=== PATIENT | male | born 1940 | race Two or more races ===

== ENCOUNTER 2017-09-03 09:19 | Day surgery (SDC) | payer MEDICARE, BC ==
[2017-09-01 15:19] VITALS: BMI 27.8
[~2017-09-03 09:19] MED LIST: LACTATED RINGERS 1,000 ML IV SCH; LIDOCAINE 1% 20 ML VIAL (10MG/ML) FOR IV START INTRADERMA PRN
[2017-09-03 09:59] VITALS: TEMP 98.3
[2017-09-03] MEDS ORDERED: PROPOFOL 10 MG/ML 20 ML VIAL IV ONE (10:14)
--- NOTE | 2017-09-03 10:32 | P.PCN ---
Date of Procedure: 09/03/17 Procedure(s) Performed: BRIEF HISTORY: Patient is a 77-year-old, pleasant, white male, scheduled for an upper endoscopy as a part of evaluation of abnormal CAT scan of abdomen that showed thickening of the stomach which was done as a part of follow-up of Mantle lymphoma diagnosed 3 years ago. He complains of occasional heartburn but denies any abdominal pain, nausea vomiting, weight loss. PROCEDURE PERFORMED: Esophagogastroduodenoscopy with biopsy. PREOPERATIVE DIAGNOSIS: Abnormal CT of the abdomen showing thickened gastric wall and occasional GERD. IV sedation per anesthesia. PROCEDURE: After informed consent was obtained, the patient was brought into the endoscopy unit. IV sedation was administered by Anesthesia under continuous monitoring. Initially the Olympus GIF-140 video endoscope was inserted into the mouth. Esophagus intubated without any difficulty. It was gradually advanced into the stomach and duodenum and carefully examined. The bulb and the second part of the duodenum appeared normal. The scope at this time was withdrawn to the stomach, adequately insufflated with air, and upon careful examination, mucosa of the antrum, had mild gastritis and also there was a slightly raised area in the antrum with normal-appearing overlying mucosa which was also biopsied. The body, cardia and the fundus appeared normal. The scope was then withdrawn into the esophagus. The GE junction was located at 40 cm from the incisors. The esophagus appeared normal. There were no erosions or ulcerations seen and the patient tolerated the procedure well. IMPRESSION: 1. Mild antral gastritis. 2. Slightly raised area with normal appearance of mucosal mucosa in the gastric antrum, status post biopsy 3. Rest of the stomach appeared normal. RECOMMENDATIONS: The findings of this examination were discussed with the patient as well as his family. He was advised to follow with the biopsy results. He will follow with Dr. Sandy as scheduled.
[2017-09-03 10:57] VITALS: BP 114/57; PULSE 74; RESP 16
== END 2017-09-03 11:18 | disposition home or self-care (01) ==
LOC: ORWHC2ENDO 09:19
PROVIDERS: ATTEND Internal Medicine Gastroenterology
DX: K29.50 Unspecified chronic gastritis without bleeding (principal); Z85.72 Personal history of non-Hodgkin lymphomas; G20 Parkinson's disease; Z79.82 Long term (current) use of aspirin
CPT/HCPCS: 88305; 88342; 43239; J2704

== ENCOUNTER 2018-04-03 06:10 | Day surgery (SDC) | payer MEDICARE, BC ==
[2018-03-31 16:10] VITALS: BMI 27.1
--- NOTE | 2018-04-03 05:58 | P.GSHP ---
History of Present Illness H&P Date: 04/03/18 CHIEF COMPLAINT: Lymphoma HISTORY OF PRESENT ILLNESS: The patient is a 77-year-old male diagnosed with lymphoma. He had a Mediport placement. He presents for Port-A-Cath removal upon completion of chemotherapy. PAST MEDICAL HISTORY: See list. PAST SURGICAL HISTORY: See list. CURRENT MEDICATIONS: See list. ALLERGIES: See list. SOCIAL HISTORY: No active tobacco or alcohol use. FAMILY HISTORY: Noncontributory. REVIEW OF ORGAN SYSTEMS: CONSTITUTIONAL: Denies any fever or chills. HEENT: Denies any trouble with vision, hearing or nosebleeds. No difficulty swallowing. PHYSICAL EXAMINATION: Vital signs: Stable GENERAL: Well developed female and in no acute distress. Pleasant. HEENT: No sclera icterus. Extraocular movements grossly intact. Moist buccal mucosa. Head is atraumatic, normocephalic. Hears conversational speech. No nasal drainage. NECK: Supple without lymphadenopathy. No JV distention. CHEST: Non-labored respirations and equal bilateral excursions. CARDIOVASCULAR: Regular rate and rhythm. Palpable 2+ radial pulses. ABDOMEN: Nontender. MUSCULOSKELETAL: No clubbing, cyanosis or edema. NEUROLOGIC: No focal or lateralizing signs. PSYCH: Appropriate affect. Alert and oriented to person, place and time. ASSESSMENT: 1. Lymphoma 2. Need for chemotherapeutic access. PLAN: 1. Agree with Port-A-Cath removal per patient's request. Past Medical History Past Medical History: Cancer, GERD/Reflux, Prostate Disorder Additional Past Medical History / Comment(s): Mantle Cell Lymphoma 10/2014, CHEMO X2 YEARS. Hx Skin Cancer. History of Any Multi-Drug Resistant Organisms: None Reported Past Surgical History: Orthopedic Surgery Additional Past Surgical History / Comment(s): Left elbow surgery, Removal basal cell cancer, MULT. LYMPH NODE BIOPSIES. COLONOSCOPY. Past Anesthesia/Blood Transfusion Reactions: No Reported Reaction Smoking Status: Former smoker - Past Family History Brother(s) Family Medical History: Cancer Father Family Medical History: Cancer Medications and Allergies Home Medications Medication Instructions Recorded Confirmed Type Aspirin 81 mg PO DAILY 09/30/14 03/31/18 History Multivitamins, Thera [Multivitamin] 1 each PO Q14D 09/30/14 03/31/18 History Cholecalciferol [Vitamin D3] 1,000 unit PO MOWESA 09/01/17 03/31/18 History [place]-3 Fatty Acids/Fish Oil [Fish 1 each PO MOTUTHFR 09/01/17 03/31/18 History Oil 1,000 mg Softgel] Saw [place] 900 mg PO DAILY 09/01/17 03/31/18 History Allergies Allergy/AdvReac Type Severity Reaction Status Date / Time No Known Allergies Allergy Verified 03/31/18 16:01
[~2018-04-03 06:10] MED LIST changes: +DEXAMETHASONE SOD PHOSPHATE 10 MG/ML 1 ML VIAL IV ONE; -LACTATED RINGERS 1,000 ML IV SCH; +MIDAZOLAM 2 MG/2 ML VIAL IV PRN; +MORPHINE SULFATE 4 MG/ML SYRINGE IV PRN; +ONDANSETRON 4 MG/2 ML VIAL IVP ONE; +SCOPOLAMINE 1.5MG/72HR PATCH TRANSDERM ONE; +ceFAZolin IN SWFI 2 GM/20 ML SYRINGE IVP ONE
[2018-04-03 06:50] VITALS: RESP 16; TEMP 98.5
[2018-04-03] MEDS: LACTATED RINGERS 1,000 ML IV SCH ×2 (07:03→07:21)
[2018-04-03] MEDS ORDERED: fentaNYL (PF) 50 MCG/ML 2 ML AMP ONE (07:23)
[2018-04-03] MEDS ORDERED: PROPOFOL 10 MG/ML 20 ML VIAL IV ONE (07:23)
[2018-04-03] MEDS ORDERED: MIDAZOLAM 2 MG/2 ML VIAL ONE (07:23)
[2018-04-03] MEDS ORDERED: BUPIVACAINE (PF) 0.25% 30 ML VIAL SQ ONE ×2 (07:34)
--- NOTE | 2018-04-03 07:50 | P.PCN ---
Date of Procedure: 04/03/18 Description of Procedure: SURGEON: ASHLEY STONER MD OCCUPATIONAL THERAPY TECHNICIAN: None. PREOPERATIVE DIAGNOSIS: 1. Lymphoma 2. Chemotherapeutic venous access. POSTOPERATIVE DIAGNOSIS: 1. Lymphoma 2. Chemotherapeutic venous access. OPERATION: Removal of left internal jugular vein Port-A-Cath. ANESTHESIA: MAC with 30 mL local. ESTIMATED BLOOD LOSS: 1 mL SPECIMENS REMOVED: Port-A-Cath COMPLICATIONS: None. INDICATIONS: The patient is [id number] male who completed chemotherapy. He now has elected for removal. Benefits and risks were described. Informed consent was obtained. DESCRIPTION OF PROCEDURE: Patient was brought to the operating room, laid in supine position. After IV sedation the chest wall on the left side was prepped and draped in standard sterile fashion. Prior to incision, a timeout protocol was confirmed with surgical team regarding the patient's name including procedures to be performed. As this was a clean case, no further antibiotics were required. Additionally, early ambulation was encouraged for DVT prophylaxis. Attention was brought to the area of the port site, whereby a total of 30 mL of local was infiltrated into the skin for a field block. A #15 blade was used to incise along the previous cicatrix. Electro- Bovie cautery was used to control for hemostasis. Adhesions were lysed around the Mediport. The port was extracted without sequelae. Pressure for 2 minutes was placed along the left internal jugular vein. Hemostasis was checked along the pocket of the Port-A-Cath site. The wound was closed in layers using 3-0 Vicryl for the deep subcutaneous tissues followed by 4-0 Monocryl in a running subcuticular fashion. Dermabond was applied to the skin. At the end of the procedure needle, sponge and instrument counts were verified correct by the assistant professor surgical technology. The patient had tolerated the procedure well and was taken to postanesthesia care in stable condition. FINDINGS: 1. Unremarkable Port-a-cath extraction. Plan - Discharge Summary New Discharge Prescriptions: No Action Aspirin 81 mg PO DAILY Multivitamins, Thera [Multivitamin] 1 each PO Q14D Saw [place] 900 mg PO DAILY Cholecalciferol [Vitamin D3] 1,000 unit PO MOWESA [place]-3 Fatty Acids/Fish Oil [Fish Oil 1,000 mg Softgel] 1 each PO MOTUTHFR Discharge Medication List Aspirin 81 mg PO DAILY 09/30/14 [History] Multivitamins, Thera [Multivitamin] 1 each PO Q14D 09/30/14 [History] Cholecalciferol [Vitamin D3] 1,000 unit PO MOWESA 09/01/17 [History] [place]-3 Fatty Acids/Fish Oil [Fish Oil 1,000 mg Softgel] 1 each PO MOTUTHFR 08/10 [History] Saw [place] 900 mg PO DAILY 09/01/17 [History]
[2018-04-03 08:11] VITALS: BP 153/81; PULSE 62
== END 2018-04-03 08:29 | disposition home or self-care (01) ==
LOC: OR 06:10
PROVIDERS: ATTEND Surgery Plastic and Reconstructive Surgery
DX: C85.90 Non-Hodgkin lymphoma, unspecified, unspecified site (principal); K21.9 Gastro-esophageal reflux disease without esophagitis; Z45.2 Encounter for adjustment and management of vascular access device; Z85.79 Personal history of other malignant neoplasms of lymphoid, hematopoietic and related tissues; Z85.828 Personal history of other malignant neoplasm of skin; Z92.21 Personal history of antineoplastic chemotherapy; R25.1 Tremor, unspecified; Z87.891 Personal history of nicotine dependence; Z79.82 Long term (current) use of aspirin
CPT/HCPCS: 36590; J2250; J1100; J2405; J3010; J2704; J0690

== ENCOUNTER → 2018-05-05 | Outpatient (CLI) | payer MEDICARE, BC ==
[2018-05-05 08:59] LABS: Partial Thromboplastin Time 22.8 sec (22.0-30.0)
[2018-05-05 09:18] LABS: T4, Free (Free Thyroxine) 0.9 ng/dL (0.78-2.19)
[2018-05-05 16:55] LABS: Protein, Total 6.3 g/dL (6.2-8.2)
[2018-05-05 17:58] LABS: Hemoglobin A1C 5.5 % (4.0-6.0)
[2018-05-07 07:51] LABS: Albumin 4.25 g/dL (3.80-4.90); Gamma Globulin 0.52 g/dL (0.70-1.50)
== END | disposition home or self-care (01) ==
LOC: LABWHC1 08:15
PROVIDERS: ATTEND Psychiatry & Neurology Neurology
DX: G62.9 Polyneuropathy, unspecified (principal)
CPT/HCPCS: 36415; 82607; 82747; 83036; 84165; 84439; 84443; 85610; 85652; 85730; 86038; 86618

== ENCOUNTER → 2018-05-13 | Outpatient (CLI) | payer MEDICARE, BC ==
--- NOTE | 2018-05-13 07:59 | MR ---
EXAMINATION TYPE: MR brain wo/w con DATE OF EXAM: 05/13/2018 COMPARISON: NONE HISTORY: Tremors unilateral right and left-sided discoordination per order. Parkinson's disease per p atient with history of lymphoma and bilateral numbness per patient. TECHNIQUE: Multiplanar, multisequence images of the brain and brainstem is performed without and with IV contras t, utilizing 9 mL intravenous Gadavist . FINDINGS: Diffusion weighted images demonstrate no evidence of a recent infarct or other diffusion ab normality. There is no worrisome extra-axial fluid collection. There is mild ventricular and sulcal prominence consistent with mild age-related cerebral atrophy. There are focal and confluent areas of T2 hyperintensity seen throughout the deep and periventricular white matter. Lesions are nonspecific in appearance and distribution but most likely on basis of product of chronic small vessel ischemic c hange in patient of this age. Midline structures demonstrate normal morphology. The craniocervical junction appears within normal limits. Post contrast images demonstrate no abnormal enhancement. Dominant distal right vertebral ar alta is noted. The dural venous sinuses appear patent. The visualized sinuses are clear and the globe s are intact. IMPRESSION: There is mild diffuse age-related cerebral atrophy and moderate to advanced chronic small vessel ischemic change present. No suspicious enhancement is noted.
== END | disposition home or self-care (01) ==
LOC: RADMRIMAIN 06:03
PROVIDERS: ATTEND Psychiatry & Neurology Neurology
DX: G31.1 Senile degeneration of brain, not elsewhere classified (principal); I67.82 Cerebral ischemia
CPT/HCPCS: 82565; 70553; A9581

== ENCOUNTER → 2022-09-16 | Outpatient (CLI) | payer MEDICARE, BC ==
--- NOTE | 2022-09-16 09:53 | MR ---
"EXAMINATION TYPE: MR lumbar spine wo con DATE OF EXAM: 09/16/2022 COMPARISON: HISTORY: Low back pain TECHNIQUE: Multiplanar, multisequence images of the lumbar spine were acquired without IV contrast. There is an oval focus of increased signal on T2-weighted sequences, likely low signal on T1 at the l evel of the thoracic cord anteriorly at T11 measuring approximately 8 to 9 mm in cephalad to caudal d imension L1-L2: Mild posterior disc bulge causes slight anterior mass effect on the thecal sac. No significant foraminal encroachment. L2-L3: Posterior broad-based disc bulge causes anterior mass effect on the thecal sac. There is some facet arthropathy with virtually the ligamentum flavum. No significant foraminal encroachment. L3-L4: Posterior broad-based disc bulge causes anterior mass effect on the thecal sac. Circumferentia l extension endplate disc complex contributes to cause some right-sided foraminal encroachment. L4-L5: Facet arthropathy with hypertrophy ligamentum flavum causes posterior lateral mass effect on t he thecal sac greater from the right. Circumferential extension endplate disc complex results in fora gonzález encroachment on the right. L5-S1: Facet arthropathy changes present. There is posterior broad-based disc bulge causing mild ante rior mass effect on the thecal sac. Circumferential extension of endplate disc complex encroaches on the foramen greater on the left than on the right Lumbar segments are intact. No paraspinal masses are identified. Conus medullaris has a normal appe arance. There is multilevel spondylosis with endplate discogenic marrow signal change. Large Schmorl' s node present at the inferior plate of L2. Loss of disc height signal is consistent with disc desicc ation and degenerative disc disease at intervertebral levels. There is a slight spinal curvature. No significant spinal stenosis. There is a tortuous ectatic descending aorta. IMPRESSION: Indeterminate focus of signal abnormality at the distal thoracic cord, consider dedicated thoracic cord imaging within without contrast, metastatic disease not excluded. Degenerative disc disease, facet arthropathy, multilevel foraminal encroachment. Spinal curvature. A Yellow level critical message alert has been initiated for Emerson Esquivel DO via the [employer] 0 | Critical Results System on 09/16/2022 9:51 AM. This message alert has been sent to Emerson Kovar , DO via the preferences provided by the clinician for the receipt of Radiology Critical Findings. [facility] [place] [id number]."
== END | disposition home or self-care (01) ==
LOC: RADMRIMAIN 08:48
PROVIDERS: ATTEND Psychiatry & Neurology Neurology
DX: M48.061 Spinal stenosis, lumbar region without neurogenic claudication (principal); M51.36 Other intervertebral disc degeneration, lumbar region; M47.816 Spondylosis without myelopathy or radiculopathy, lumbar region
CPT/HCPCS: 72148

== ENCOUNTER → 2022-09-23 | Outpatient (CLI) | payer MEDICARE, BC ==
--- NOTE | 2022-09-23 07:54 | MR ---
EXAMINATION TYPE: MR thoracic spine wo/w con DATE OF EXAM: 09/23/2022 COMPARISON: MRI lumbar spine September 16, 2022 HISTORY: NEOPLASM OF UNCERTAIN BEHAVIOR, LOWER SPINAL CORD FOUND ON LUMBAR MRI TECHNIQUE: Multiplanar, multisequence imaging of thoracic spine is performed without and with IV cont rast, patient injected with 9 cc of gadolinium 4 study. FINDINGS: Coronal images show dextroconvex scoliosis centered in the lower thoracic spine. Spinal co rd shows normal course and caliber as it courses the thoracic spine. . Redemonstration of oval circum scribed small lesion anterior mid to lower thoracic T11 vertebral level measuring 6 mm craniocaudal d imension by 4 mm AP diameter without postcontrast enhancement of T1 hypointensity and T2 hyperintensi ty. Remainder of spinal cord shows no suspicious lesions or enhancement. Vertebral body heights and a lignment are satisfactory on sagittal images. Disc space heights are maintained. No large posterior d isc herniations are seen on sagittal images. Bone marrow signal intensity is preserved. No abnormal e nhancement is noted. Review of the axial images shows no significant spinal canal stenosis or neural foraminal narrowing a t any thoracic level. Redemonstration of oval circumscribed lesion measuring 4 mm transversely axial image 13 series 701 without enhancement. Visualized thorax and upper abdomen show small-sized slidin g type hiatal hernia. IMPRESSION: There is 6 mm well-circumscribed nonenhancing oval thin-walled enteric cyst or cystic les ion anterior aspect of lower thoracic spinal cord favor benign in etiology.
== END | disposition home or self-care (01) ==
LOC: RADMRIMAIN 06:29
PROVIDERS: ATTEND Psychiatry & Neurology Neurology
DX: D48.0 Neoplasm of uncertain behavior of bone and articular cartilage (principal)
CPT/HCPCS: 72157; A9585

== ENCOUNTER 2023-10-01 10:45 | Day surgery (SDC) | payer MEDICARE, BC ==
[2023-09-30 09:01] VITALS: BMI 26.5
[~2023-10-01 10:45] MED LIST changes: -DEXAMETHASONE SOD PHOSPHATE 10 MG/ML 1 ML VIAL IV ONE; +HYDROmorphone 0.5 MG/0.5 ML SYRINGE IVP PRN; +LACTATED RINGERS 1,000 ML IV SCH; +LIDOCAINE 1% (10MG/ML) FOR IV START INTRADERMA PRN; -LIDOCAINE 1% 20 ML VIAL (10MG/ML) FOR IV START INTRADERMA PRN; -MIDAZOLAM 2 MG/2 ML VIAL IV PRN; -MORPHINE SULFATE 4 MG/ML SYRINGE IV PRN; -ONDANSETRON 4 MG/2 ML VIAL IVP ONE; -SCOPOLAMINE 1.5MG/72HR PATCH TRANSDERM ONE; -ceFAZolin IN SWFI 2 GM/20 ML SYRINGE IVP ONE
[2023-10-01] MEDS: FAMOTIDINE 20 MG/2 ML VIAL IV PRN ×2 (11:23→11:28)
[2023-10-01] MEDS ORDERED: DEXAMETHASONE SOD PHOSPHATE 4 MG/ML 1 ML VIAL IVP ONE ×2 (11:24→11:28)
[2023-10-01] MEDS ORDERED: ONDANSETRON 4 MG/2 ML VIAL IVP ONE ×2 (11:24→11:28)
[2023-10-01] MEDS ORDERED: ONDANSETRON 4 MG/2 ML VIAL ONE (11:27)
[2023-10-01 11:30] VITALS: RESP 16
[2023-10-01 11:43] LABS: Basophils % (A) 0 %; Eosinophils # (A) 0.1 k/uL (0-0.7); Eosinophils % (A) 1 %; HGB 13.4 gm/dL (13.0-17.5); Lymphocytes # (A) 1.1 k/uL (1.0-4.8); Lymphocytes % (A) 16 %; MCH 32.5 pg (25.0-35.0); MCHC 33.6 g/dL (31.0-37.0); MCV 96.7 fL (80.0-100.0); Mean Platelet Volume 8.5; Monocytes # (A) 0.4 k/uL (0-1.0); Monocytes % (A) 6 %; Neutrophils # (A) 5.2 k/uL (1.3-7.7); Neutrophils % (A) 75 %; Platelet Count 243 k/uL (150-450); RBC 4.13 m/uL (4.30-5.90); RDW 12.8 % (11.5-15.5)
[2023-10-01] MEDS ORDERED: ePHEDrine 50 MG/ML 1 ML VIAL ONE (11:45)
[2023-10-01] MEDS ORDERED: PROPOFOL 10 MG/ML 20 ML VIAL IV ONE (11:45)
[2023-10-01] MEDS ORDERED: SUCCINYLCHOLINE CHLORIDE 200 MG/10 ML VIAL IV ONE (11:45)
[2023-10-01] MEDS ORDERED: LIDOCAINE 1% INJ 10MG/ML (20 ML MDV) ONE (11:45)
[2023-10-01] MEDS ORDERED: fentaNYL (PF) 50 MCG/ML 2 ML AMP ONE (11:45)
[2023-10-01] MEDS ORDERED: LIDOCAINE 2%-EPI 1:100,000 20 ML VIAL SQ ONE ×2 (12:06)
[2023-10-01] MEDS ORDERED: BACITRACIN ZINC 500 UNIT/GM OINT 28.4 GM TUBE TOPICAL ONE (12:36)
--- NOTE | 2023-10-01 12:54 | P.OP ---
Date of Procedure: 10/01/23 Preoperative Diagnosis: Right ear lesion Right preauricular skin lesion Postoperative Diagnosis: Same Procedure(s) Performed: Excision right preauricular lesion 2.7 cm with complex closure Wedge excision right ear lesion 5.2 cm with complex closure Anesthesia: MANA Surgeon: Mikal Lucas Estimated Blood Loss (ml): 5 Pathology: other (Right preauricular skin lesion and right ear lesion) Condition: stable Disposition: PACU Indications for Procedure: 83-year-old white male who presents with 2 nonhealing progressively enlarging skin lesions right auricle and right preauricular Operative Findings: Excoriated raw appearing right preauricular and right superior helical skin lesions Description of Procedure: The patient was brought in the operative suite and placed in a supine position. Patient underwent induction of general anesthesia with oral endotracheal intubation without difficulty. The patient was prepped and draped in usual aseptic fashion. 1% lidocaine with [id number] epinephrine was infused subcutaneously at both surgical sites. This was allowed to work for 7 minutes vasoconstrictive effect. The right ear lesion was excised with wedge excision technique grossly entirely through and through and hemostasis was gained with electrocautery. This was closed in complex closure method with advancement of the remainder of the auricle into the defect including closure of the cartilage with 3-0 Vicryl suture subcutaneous tissue closed with inverted interrupted 5-0 Vicryl suture and skin closed with running locking and simple interrupted 4-0 Prolene suture. Bacitracin ointment sterile dressing was placed. The right preauricular skin lesion was then excised grossly entirely in the preauricular crease down to the subcutaneous muscular layer. Hemostasis was gained with electrocautery. The wound closure included wide undermining and advancement of tissue into the defect from the surrounding area and all directions. The wound was closed in the muscular and subcutaneous layers with inverted interrupted 4-0 Vicryl suture skin closed with running locking 5-0 Prolene suture followed by bacitracin ointment and sterile dressings. The patient was allowed to emerge from general anesthesia having tolerated procedure well extubated in the operative suite and transferred to postop recovery area in satisfactory.
[2023-10-01 13:12] VITALS: TEMP 97
[2023-10-01] MEDS ORDERED: hydrALAZINE HCL 20 MG/ML 1 ML VIAL IV ONE (13:39)
[2023-10-01 14:27] VITALS: BP 147/65; PULSE 85
== END 2023-10-01 14:43 | disposition home or self-care (01) ==
LOC: OR 10:45
PROVIDERS: ATTEND Otolaryngology
DX: L81.4 Other melanin hyperpigmentation (principal); H83.8X1 Other specified diseases of right inner ear; G20.B2 Parkinson's disease with dyskinesia, with fluctuations; K21.9 Gastro-esophageal reflux disease without esophagitis; Z79.899 Other long term (current) drug therapy; Z87.891 Personal history of nicotine dependence
CPT/HCPCS: 88305; 85025; 21012; J0330; J0360; J1100; J0690; J2405; J2001; J3010; J3490; J2704

== ENCOUNTER 2023-12-14 08:12 | Inpatient (IN) | payer MEDICARE, BC ==
--- NOTE | 2023-12-14 08:34 | ED ---
General Adult HPI - General Chief complaint: Weakness Stated complaint: Weakness, Freq Falls Time Seen by Provider: 12/14/23 08:19 Source: EMS, RN notes reviewed, old records reviewed Mode of arrival: EMS Limitations: no limitations - History of Present Illness Initial comments: 83 -year-old male presenting with weakness, gait instability, frequent falls. Patient has history of peripheral neuropathy and Parkinson's disease. Apparently he's had frequent falls and progressive weakness over many months. He had reported minor head injury without loss consciousness from a fall which was several days ago. He also injured his right arm and was noted to have significant ecchymosis to the right upper extremity. Denies central chest pain. Denies fever. Denies vomiting or diarrhea. - Related Data Home Medications Medication Instructions Recorded Confirmed Aspirin 81 mg PO DAILY 09/30/14 09/30/23 Carbidopa/Levodopa 3 tab PO TID 09/30/23 09/30/23 [Carbidopa-Levodopa 25-100 Tab] Cholecalciferol [Vitamin D3 (125 125 mcg PO Q48H 09/30/23 09/30/23 Mcg = 5000 Iu)] Cyanocobalamin (Vitamin B-12) 1,000 mcg PO DAILY 09/30/23 09/30/23 [Vitamin B-12] Tamsulosin [Flomax] 0.4 mg PO HS 09/30/23 09/30/23 traMADol HCL 50 mg PO BID 09/30/23 09/30/23 Allergies Allergy/AdvReac Type Severity Reaction Status Date / Time No Known Allergies Allergy Verified 12/14/23 08:23 Review of Systems ROS Statement: Those systems with pertinent positive or pertinent negative responses have been documented in the HPI. ROS Other: All systems not noted in ROS Statement are negative. Past Medical History Past Medical History: Cancer, GERD/Reflux, Neurologic Disorder, Prostate Disorder Additional Past Medical History / Comment(s): See Dr Lucas's H&P. 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 Hx Skin Cancer. Numbness in fe et. Back problem/pain. Parkinson's. History of Any Multi-Drug Resistant Organisms: None Reported Past Surgical History: Orthopedic Surgery Additional Past Surgical History / Comment(s): Left elbow surgery, removal basal cell cancer, MULTIPLE LYMPH NODE BIOPSIES, COLONOSCOPY, chemo port Past Anesthesia/Blood Transfusion Reactions: No Reported Reaction Past Psychological History: No Psychological Hx Reported Smoking Status: Former smoker Past Alcohol Use History: Rare Past Drug Use History: None Reported - Past Family History Brother(s) Family Medical History: Cancer Father Family Medical History: Cancer General Exam Limitations: no limitations General appearance: alert, in no apparent distress Head exam: Present: atraumatic, normocephalic Eye exam: Present: normal appearance, PERRL ENT exam: Present: mucous membranes dry Neck exam: Present: normal inspection. Absent: tenderness, meningismus Respiratory exam: Present: normal lung sounds bilaterally. Absent: respiratory distress, wheezes Cardiovascular Exam: Present: regular rate, normal rhythm GI/Abdominal exam: Present: soft. Absent: distended Extremities exam: Present: other (Ecchymosis to the right upper extremity, no bony tenderness, normal range of motion) Neurological exam: Present: alert Psychiatric exam: Present: normal affect, normal mood Skin exam: Present: warm, dry Course Vital Signs 12/14/23 08:15 Temperature 97.8 F Pulse Rate 65 Respiratory 16 Rate Blood Pressure 188/90 O2 Sat by Pulse 97 Oximetry Medical Decision Making - Medical Decision Making Was pt. sent in by a medical professional or institution (Dr. PA, [employer] TEAM TRUCK DRIVER, urgent care, hospital, or jail...) When possible be specific @ -No Did you speak to anyone other than the patient for history (EMS, parent, family, police, friend...)? What history was obtained from this source @ -No Did you review nursing and triage notes (agree or disagree)? Why? @ -I reviewed and agree with nursing and triage notes Were old charts reviewed (outside hosp., previous admission, EMS record, old EKG, old radiological studies, urgent care reports/EKG's, jail records)? Report findings @ -No old charts were reviewed Differential Diagnosis (chest pain, altered mental status, abdominal pain women, abdominal pain men, vaginal bleeding, weakness, fever, dyspnea, syncope, headache, dizziness, GI bleed, back pain, seizure, CVA, palpatations, mental health, musculoskeletal)? @ Differential Weakness: Hypoglycemia, shock, sepsis, hyponatremia, anemia, infection, NC, ETOH, adverse medicine reaction, overdose, stroke, this is not meant to be an all-inclusive list. EKG interpreted by me (3pts min.). @ EKG: Sinus rhythm rate of 67, PA interval 169, QRS duration 83, QTC 389 X-rays interpreted by me (1pt min.). @ -Chest x-ray negative for consolidated pneumonia, no pneumothorax, no acute findings CT interpreted by me (1pt min.). @ CT brain and C-spine negative for traumatic injury. U/S interpreted by me (1pt. min.). @ -None done What testing was considered but not performed or refused? (CT, X-rays, U/S, labs)? Why? @ -None What meds were considered but not given or refused? Why? @ -None Did you discuss the management of the patient with other professionals (professionals i.e. DrPapo, PA, [employer] TEAM TRUCK DRIVER, lab, RT, psych nurse, social psychologist, professor of environmental engineering, teacher, guest relations officer, case repairer)? Give summary @ -No Was smoking cessation discussed for >3mins.? @ -No Was critical care preformed (if so, how long)? @ -No Were there social determinants of health that impacted care today? How? (Homelessness, low income, unemployed, alcoholism, drug addiction, transportation, low edu. Level, literacy, decrease access to med. care, custodial, rehab)? @ -No Was there de-escalation of care discussed even if they declined (Discuss DNR or withdrawal of care, Hospice)? DNR status @ -No What co-morbidities impacted this encounter? (DM, HTN, Smoking, COPD, CAD, Cancer, CVA, ARF, Chemo, Hep., AIDS, mental health diagnosis, sleep apnea, morbid obesity)? @ -Peripheral neuropathy, Parkinson's disease Was patient admitted / discharged? Hospital course, mention meds given and route, prescriptions, significant lab abnormalities, going to OR and other pertinent info. @ -[83-year-old male with frequent falls, generalized weakness, gait instability. Workup in the emergency department thus far is unremarkable including chest x-ray, head CT, laboratory testing and EKG. Patient is a significant fall risk. Will likely require placement for rehabilitation. Case discussed with Dr. Santillan will admit Undiagnosed new problem with uncertain prognosis? @ -No Drug Therapy requiring intensive monitoring for toxicity (Heparin, Nitro, Insulin, Cardizem)? @ -No Were any procedures done? @ -No Diagnosis/symptom? @ -Gait instability, frequent falls Acute, or Chronic, or Acute on Chronic? @ acute on chronic Uncomplicated (without systemic symptoms) or Complicated (systemic symptoms)? @ -default Side effects of treatment? @ -No Exacerbation, Progression, or Severe Exacerbation? @ -No Poses a threat to life or bodily function? How? (Chest pain, USA, NC, pneumonia, PE, COPD, DKA, ARF, appy, cholecystitis, CVA, Diverticulitis, Homicidal, Suicidal, threat to staff... and all critical care pts) @ -No - Lab Data Result diagrams: 12/14/23 08:35 12/14/23 08:35 Lab Results 12/14/23 12/14/23 12/14/23 Range/Units 08:35 08:35 08:35 WBC 6.5 (3.8-10.6) k/uL RBC 3.72 L (4.30-5.90) m/uL Hgb 12.0 L (13.0-17.5) gm/dL Hct 36.5 L (39.0-53.0) % MCV 98.3 (80.0-100.0) fL MCH 32.3 (25.0-35.0) pg MCHC 32.9 (31.0-37.0) g/dL RDW 12.5 (11.5-15.5) % Plt Count 202 (150-450) k/uL MPV 9.0 Neutrophils % 78 % Lymphocytes % 14 % Monocytes % 5 % Eosinophils % 1 % Basophils % 0 % Neutrophils # 5.1 (1.3-7.7) k/uL Lymphocytes # 0.9 L (1.0-4.8) k/uL Monocytes # 0.3 (0-1.0) k/uL Eosinophils # 0.1 (0-0.7) k/uL Basophils # 0.0 (0-0.2) k/uL PT 10.8 (10.0-12.5) sec INR 1.0 (<1.2) APTT 23.0 (22.0-30.0) sec Sodium 138 (137-145) mmol/L Potassium 4.8 (3.5-5.1) mmol/L Chloride 104 (98-107) mmol/L Carbon Dioxide 33 H (22-30) mmol/L Anion Gap 1 mmol/L BUN 20 (9-20) mg/dL Creatinine 0.81 (0.66-1.25) mg/dL Est GFR (CKD-EPI)AfAm >90 (>60 ml/min/1.73 sqM) Est GFR (CKD-EPI)NonAf 82 (>60 ml/min/1.73 sqM) Glucose 98 (74-99) mg/dL Plasma Lactic Acid Adan (0.7-2.0) mmol/L Calcium 8.8 (8.4-10.2) mg/dL Magnesium 2.0 (1.6-2.3) mg/dL Total Bilirubin 1.0 (0.2-1.3) mg/dL AST 21 (17-59) U/L ALT <6 (4-49) U/L Alkaline Phosphatase 86 (38-126) U/L Troponin I (0.000-0.034) ng/mL NT-Pro-B Natriuret Pep 923 pg/mL Total Protein 5.6 L (6.3-8.2) g/dL Albumin 3.3 L (3.5-5.0) g/dL 12/14/23 12/14/23 Range/Units 08:35 08:35 WBC (3.8-10.6) k/uL RBC (4.30-5.90) m/uL Hgb (13.0-17.5) gm/dL Hct (39.0-53.0) % MCV (80.0-100.0) fL MCH (25.0-35.0) pg MCHC (31.0-37.0) g/dL RDW (11.5-15.5) % Plt Count (150-450) k/uL MPV Neutrophils % % Lymphocytes % % Monocytes % % Eosinophils % % Basophils % % Neutrophils # (1.3-7.7) k/uL Lymphocytes # (1.0-4.8) k/uL Monocytes # (0-1.0) k/uL Eosinophils # (0-0.7) k/uL Basophils # (0-0.2) k/uL PT (10.0-12.5) sec INR (<1.2) APTT (22.0-30.0) sec Sodium (137-145) mmol/L Potassium (3.5-5.1) mmol/L Chloride (98-107) mmol/L Carbon Dioxide (22-30) mmol/L Anion Gap mmol/L BUN (9-20) mg/dL Creatinine (0.66-1.25) mg/dL Est GFR (CKD-EPI)AfAm (>60 ml/min/1.73 sqM) Est GFR (CKD-EPI)NonAf (>60 ml/min/1.73 sqM) Glucose (74-99) mg/dL Plasma Lactic Acid Adan 0.8 (0.7-2.0) mmol/L Calcium (8.4-10.2) mg/dL Magnesium (1.6-2.3) mg/dL Total Bilirubin (0.2-1.3) mg/dL AST (17-59) U/L ALT (4-49) U/L Alkaline Phosphatase (38-126) U/L Troponin I <0.012 (0.000-0.034) ng/mL NT-Pro-B Natriuret Pep pg/mL Total Protein (6.3-8.2) g/dL Albumin (3.5-5.0) g/dL Disposition Clinical Impression: Frequent falls, Gait instability Disposition: ADMITTED IP TO THIS HOSP Condition: Stable Is patient prescribed a controlled substance at d/c from ED?: No Referrals: Mc Stewart DO [Primary Care Provider] - 1-2 days Time of Disposition: 12:01
[2023-12-14 08:51] LABS: Basophils % (A) 0 %; Eosinophils # (A) 0.1 k/uL (0-0.7); Eosinophils % (A) 1 %; HCT 36.5 % (39.0-53.0); Lymphocytes # (A) 0.9 k/uL (1.0-4.8); Lymphocytes % (A) 14 %; MCH 32.3 pg (25.0-35.0); MCHC 32.9 g/dL (31.0-37.0); MCV 98.3 fL (80.0-100.0); Monocytes # (A) 0.3 k/uL (0-1.0); Monocytes % (A) 5 %; Neutrophils # (A) 5.1 k/uL (1.3-7.7); Neutrophils % (A) 78 %; Platelet Count 202 k/uL (150-450); RBC 3.72 m/uL (4.30-5.90); RDW 12.5 % (11.5-15.5); WBC 6.5 k/uL (3.8-10.6)
[2023-12-14 08:59] LABS: Prothrombin Time 10.8 sec (10.0-12.5)
[2023-12-14 09:02] LABS: ALT <6 U/L (4-49); AST 21 U/L (17-59); African American GFR (CKD) >90 (>60 ml/min/1.73 sqM); Albumin 3.3 g/dL (3.5-5.0); Alkaline Phosphatase 86 U/L (38-126); Anion Gap 1 mmol/L; Blood Urea Nitrogen 20 mg/dL (9-20); Calcium 8.8 mg/dL (8.4-10.2); Carbon Dioxide 33 mmol/L (22-30); Chloride 104 mmol/L (98-107); Glucose 98 mg/dL (74-99); Non-African American GFR(CKD) 82 (>60 ml/min/1.73 sqM); Potassium 4.8 mmol/L (3.5-5.1); Sodium 138 mmol/L (137-145); Total Protein 5.6 g/dL (6.3-8.2)
[2023-12-14 09:10] LABS: NT-Pro-B-Type Natriuretic Pept 923 pg/mL
--- NOTE | 2023-12-14 09:18 | XR ---
EXAMINATION TYPE: XR chest 2V DATE OF EXAM: 12/14/2023 COMPARISON: 10/28/2014 HISTORY: Weakness TECHNIQUE: Frontal and lateral views of the chest are obtained. FINDINGS: On the lateral view of the chest only, there is opacification in the anterior upper portion of the th orax. Opacity in this region could be accounted by opacity from the overlying upper extremities parti cularly given the lack of opacification in the upper lobes on the PA view the chest. However the poss ibility of upper lobe infiltrates is not excluded. Repeat lateral view of the chest recommended with the upper extremities extended. The heart and pulmonary vasculature are normal. There is no pleural effusion or pneumothorax. The oss eous structures are intact. IMPRESSION: Repeat of lateral view the chest is recommended with the upper extremities extended. Based on this te chnique, upper lobe opacification cannot be excluded.
--- NOTE | 2023-12-14 09:32 | CT ---
EXAMINATION TYPE: CT brain cspine wo con DATE OF EXAM: 12/14/2023 COMPARISON: None HISTORY: Weakness, frequent falls CT DLP: 1418.1 mGycm Automated exposure control for dose reduction was used. TECHNIQUE: CT scan of the head and cervical spine are performed without contrast. Findings: Head CT: The ventricles, basal cisterns and sulci over the convexities are moderately enlarged consistent with moderate atrophy but appropriate for the patient's age. There is no mass, mass effect or shift of mi dline structures. There is moderate decreased density in the periventricular white matter consistent with chronic ische deloris white matter demyelination. There is no acute intra or extra-axial hemorrhage. Posterior fossa including the brainstem, fourth ventricle and cerebellar pontine angles are grossly n ormal. The intraorbital contents appear normal and symmetric. Visualized paranasal sinuses are well aerated. CT cervical spine: Craniovertebral junction relationships and prevertebral soft tissues are normal. The cervical vertebral segments are normal in height and alignment and there is no fracture subluxati on. There is mild degenerative disease at the C4-5, C5-6 and C6-7 levels. There is mild osteoarthritic ch anges of facet joints and uncovertebral joints throughout the cervical region. There is no bony encro achment of the cervical canal. There is mild bony encroachment at this the 4 5 neural foramina on the right. The paraspinal soft tissues unremarkable. IMPRESSION: 1. Head CT: No acute bleed or mass effect. 2. CT cervical spine: No acute trauma. Degenerative disc disease and osteoarthritic changes as descri bed above.
[2023-12-14] MEDS ORDERED: ACETAMINOPHEN TAB 325 MG TAB PO PRN (11:56)
[2023-12-14] MEDS ORDERED: NALOXONE 0.4 MG/ML 1 ML VIAL IV PRN (11:56)
[2023-12-14] MEDS: traMADol 50 MG TAB PO SCH ×2 (13:00→21:09)
[2023-12-14 14:28] LABS: Appearance,Urine Clear (Clear); Bilirubin,Urine Negative (Negative); Blood,Urine Negative (Negative); Color,Urine Yellow; Glucose,Urine (UA) Negative (Negative); Ketones,Urine Trace (Negative); Leukocyte Esterase,Urine Negative (Negative); Nitrite,Urine Negative (Negative); PH, Urine 6.5 (5.0-8.0); Protein,Urine Negative (Negative); Specific Gravity,Urine 1.018 (1.001-1.035); Urobilinogen,Urine <2.0 mg/dL (<2.0)
[2023-12-14] MEDS ORDERED: CARBIDOPA-LEVODOPA 25-100 MG 1 EACH TAB PO SCH ×2 (16:00)
[2023-12-14] MEDS ORDERED: ALPRAZolam 0.25 MG TAB PO PRN (19:14)
[2023-12-14] MEDS ORDERED: CALCIUM CARBONATE 500 MG CHEWABLE PO PRN (19:14)
[2023-12-14] MEDS ORDERED: ONDANSETRON 4 MG/2 ML VIAL IVP PRN (19:14)
[2023-12-14] MEDS ORDERED: LACTULOSE 20 GM/30 ML CUP PO PRN (19:14)
[2023-12-14] MEDS ORDERED: MELATONIN 3 MG TABLET PO PRN (19:14)
--- NOTE | 2023-12-14 19:25 | P.HPIM ---
History of Present Illness H&P Date: 12/14/23 Chief Complaint: Increasing falls This is a pleasant 83-year-old patient follows with Dr. Stewart. 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 Has back problems. Parkinson's. For which she follows Dr. Esquivel. And a baseline patient uses a walker. He last saw Dr. Esquivel in September. It has been noticed by the family and the patient that while patient's walking is suddenly become very weak and go down. Does not use caution us. Occasionally when patient gets epigastric dizzy lightheaded. Otherwise patient is rather tries to be active. No fever no chills. No chest pain or palpitations. Patient follows up in becoming increasingly frequent in the last few weeks. Patient is accompanied by his and son at the bedside. Review of systems: GEN.: None EYES: None HEENT: None NECK: None RESPIRATORY: None CARDIOVASCULAR: None GASTROINTESTINAL: None GENITOURINARY: Some urinary incontinence MUSCULOSKELETAL: Arthritis LYMPHATICS: None HEMATOLOGICAL: None PSYCHIATRY: None NEUROLOGICAL: [As above Social history: Patient smoked for 21 years stopped at age of 41. Less than a pack a day. Retired at age of 47. . Used to work in a chemistry lab. Physical examination: VITAL SIGNS: 98.3, 77, 18, 1 87 x 89, 97% room air GENERAL: Average built, reclining in bed, comfortable. Some bruising from falls EYES: Pupils equal. Conjunctiva normal. HEENT: External appearance of nose and ears normal, oral cavity grossly normal. NECK: JVD not raised; masses not palpable. HEART: First and second heart sounds are normal; no edema. LUNGS: Respiratory rate normal; clear to auscultation. ABDOMEN: Soft, nontender, liver spleen not palpable, no masses palpable. PSYCH: Alert and oriented x3; mood and affect normal. MUSCULOSKELETAL:No Clubbing/cyanosis;muscles-grossly intact. OA NEUROLOGICAL: [Cranial nerves grossly intact; no facial asymmetry, some bradykinesia LYMPHATICS: No lymph nodes palpable in the axilla and neck INVESTIGATIONS, reviewed in the clinical context: White count 6.5 lobe in 12 platelets 2025 potassium 4.8 creatinine 0.81 UA: Unremarkable EKG tracing personally reviewed by me-no sinus rhythm Chest x-ray film personally reviewed by me-unremarkable CT of the head and cervical spine: DJD changes. No fracture Assessment and plan: -Patient has been increasing frequent falls. Patient has underlying Parkinson's and peripheral neuropathy from chemotherapy. Falls, on rather suddenly when patient is feeling weak does not pass out. No chest pain or palpitation. This could be combination of autonomic dysfunction and some autonomic effect of Parkinson's. Patient currently takes 3 tablets 3 times a day of Sinemet.A DrPapo 2 tablets 4 times a day. 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 Check orthostatic. We'll see how the patient does. PTOT consult. Past Medical History Past Medical History: Cancer, GERD/Reflux, Neurologic Disorder, Prostate Disorder Additional Past Medical History / Comment(s): See Dr Lucas's H&P. 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 Hx Skin Cancer. Numbness in feet. Back problem/pain. Parkinson's. History of Any Multi-Drug Resistant Organisms: None Reported Past Surgical History: Orthopedic Surgery Additional Past Surgical History / Comment(s): Left elbow surgery, removal basal cell cancer, MULTIPLE LYMPH NODE BIOPSIES, COLONOSCOPY, chemo port Past Anesthesia/Blood Transfusion Reactions: No Reported Reaction Past Psychological History: No Psychological Hx Reported Smoking Status: Former smoker Past Alcohol Use History: Rare Additional Past Alcohol Use History / Comment(s): SMOKED FROM AGE [age], 1 PPD OR LESS. Past Drug Use History: None Reported - Past Family History Brother(s) Family Medical History: Cancer Father Family Medical History: Cancer Medications and Allergies Home Medications Medication Instructions Recorded Confirmed Type Aspirin 81 mg PO PC-SUPPER 09/30/14 12/14/23 History Carbidopa/Levodopa 3 tab PO TID 09/30/23 12/14/23 History [Carbidopa-Levodopa 25-100 Tab] Tamsulosin [Flomax] 0.4 mg PO PC-SUPPER 09/30/23 12/14/23 History traMADol HCL 50 mg PO BID 09/30/23 12/14/23 History Allergies Allergy/AdvReac Type Severity Reaction Status Date / Time No Known Allergies Allergy Verified 12/14/23 12:02 Physical Exam Vitals: Vital Signs Temp Pulse Pulse Resp BP BP Pulse Ox 12/14/23 17:29 98.3 F 77 18 187/89 97 12/14/23 16:49 97.8 F 81 18 186/82 96 12/14/23 13:05 65 18 128/65 95 12/14/23 08:15 97.8 F 65 16 188/90 97 Intake and Output 12/14/23 12/14/23 12/14/23 06:59 14:59 22:59 Intake Total 160 Balance 160 Intake: Oral 160 Other: # Voids 1 Weight 81.647 kg Results CBC & Chem 7: 12/14/23 08:35 12/14/23 08:35 Labs: Abnormal Lab Results - Last 24 Hours (Table) 12/14/23 12/14/23 12/14/23 Range/Units 08:35 08:35 08:35 RBC 3.72 L (4.30-5.90) m/uL Hgb 12.0 L (13.0-17.5) gm/dL Hct 36.5 L (39.0-53.0) % Lymphocytes # 0.9 L (1.0-4.8) k/uL Carbon Dioxide 33 H (22-30) mmol/L Total Protein 5.6 L (6.3-8.2) g/dL Albumin 3.3 L (3.5-5.0) g/dL Urine Ketones Trace H (Negative) Thrombosis Risk Factor Assmnt - Choose All That Apply Each Risk Factor Represents 3 Points: Age 75 years or older Thrombosis Risk Factor Assessment Total Risk Factor Score: 3 Thrombosis Risk Factor Assessment Level: Moderate Risk
[2023-12-14] MEDS: ENOXAPARIN 40 MG/0.4 ML SYRINGE SQ SCH (19:47)
[2023-12-14] MEDS: CARBIDOPA-LEVODOPA 25-100 MG 1 EACH TAB PO SCH (21:09)
[2023-12-14] MEDS: ASPIRIN 81 MG PO SCH (21:09)
[2023-12-15] MEDS: ENOXAPARIN 40 MG/0.4 ML SYRINGE SQ SCH (07:37)
[2023-12-15] MEDS: CARBIDOPA-LEVODOPA 25-100 MG 1 EACH TAB PO SCH ×4 (07:38→22:40)
[2023-12-15] MEDS: traMADol 50 MG TAB PO SCH ×2 (07:38→20:01)
[2023-12-15] MEDS: FLUDROCORTISONE 0.1 MG TAB PO SCH ×2 (12:16→20:01)
[2023-12-15 13:53] VITALS: BMI 24.4
--- NOTE | 2023-12-15 16:48 | P.PN ---
Progress Note - Text Progress Note Date: 12/15/23 Chief Complaint: Increasing falls This is a pleasant 83-year-old patient follows with Dr. Stewart. 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 Has back problems. Parkinson's. For which she follows Dr. Esquivel. And a baseline patient uses a walker. He last saw Dr. Esquivel in September. It has been noticed by the family and the patient that while patient's walking is suddenly become very weak and go down. Does not use caution us. Occasionally when patient gets epigastric dizzy lightheaded. Otherwise patient is rather tries to be active. No fever no chills. No chest pain or palpitations. Patient follows up in becoming increasingly frequent in the last few weeks. Patient is accompanied by his and son at the bedside. December 15, 2023: Sitting up in bed. Comfortable. and son at the bedside. As discussed yesterday patient Sinemet is being changed to 2 tablets 4 times a day. Patient's blood pressure extremely labile. Dropped down to 170 systolic on standing. Also systolic was up to 1 80-200, at times. MAURIZIO stockings are been ordered. Florinef 0.05 mg twice daily as needed. Discussed at length with the family. See how the patient does with PT OT. Unable to possibly because of drop in blood pressure. Active Medications Acetaminophen (Acetaminophen Tab 325 Mg Tab) 650 mg PO Q6HR PRN PRN Reason: Mild Pain or Fever > 100.5 Alprazolam (Alprazolam 0.25 Mg Tab) 0.25 mg PO Q6HR PRN PRN Reason: Anxiety Aspirin (Aspirin 81 Mg) 81 mg PO PC-SUPPER [facility] Last Admin: 12/14/23 21:09 Dose: 81 mg Calcium Carbonate/Glycine (Calcium Carbonate 500 Mg Chewable) 1,000 mg PO Q4HR PRN PRN Reason: Dyspepsia Carbidopa/Levodopa (Carbidopa-Levodopa 25-100 Mg 1 Each Tab) 2 each PO QID [facility] Last Admin: 12/15/23 12:18 Dose: 2 each Enoxaparin Sodium (Enoxaparin 40 Mg/0.4 Ml Syringe) 40 mg SQ DAILY [facility] Last Admin: 12/15/23 07:37 Dose: 40 mg Fludrocortisone Acetate (Fludrocortisone 0.1 Mg Tab) 0.05 mg PO BID [facility] Last Admin: 12/15/23 12:16 Dose: 0.05 mg Lactulose (Lactulose 20 Gm/30 Ml Cup) 20 gm PO DAILY PRN PRN Reason: Constipation Melatonin (Melatonin 3 Mg Tablet) 3 mg PO HS PRN PRN Reason: Insomnia Naloxone HCl (Naloxone 0.4 Mg/Ml 1 Ml Vial) 0.2 mg IV Q2M PRN PRN Reason: Opioid Reversal Ondansetron HCl (Ondansetron 4 Mg/2 Ml Vial) 4 mg IVP Q8HR PRN PRN Reason: Nausea And Vomiting Tamsulosin HCl (Tamsulosin 0.4 Mg Cap.Er.24h) 0.4 mg PO PC-SUPPER [facility] Tramadol HCl (Tramadol 50 Mg Tab) 50 mg PO BID [facility] Last Admin: 12/15/23 07:38 Dose: 50 mg Social history: Patient smoked for 21 years stopped at age of 41. Less than a pack a day. 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 Positive orthostatic. Positive orthostatic Geating up in bed bruising from falls EYES: Pupils equal. Conjunctiva normal. HEENT: External appearance of nose and ears normal, oral cavity grossly normal. NECK: JVD not raised; masses not palpable. HEART: First and second heart sounds are normal; no edema. LUNGS: Respiratory rate normal; clear to auscultation. ABDOMEN: Soft, nontender, liver spleen not palpable, no masses palpable. PSYCH: Alert and oriented x3; mood and affect normal. MUSCULOSKELETAL:No Clubbing/cyanosis;muscles-grossly intact. OA NEUROLOGICAL: [Cranial nerves grossly intact; no facial asymmetry, some bradykinesia INVESTIGATIONS, reviewed in the clinical context: White count 6.5 lobe in 12 platelets 2025 potassium 4.8 creatinine 0.81 UA: Unremarkable EKG tracing personally reviewed by me-no sinus rhythm Chest x-ray film personally reviewed by me-unremarkable CT of the head and cervical spine: DJD changes. No fracture Assessment and plan: -Patient has been increasing frequent falls. Patient has underlying Parkinson's and peripheral neuropathy from chemotherapy. Falls, on rather suddenly when patient is feeling weak does not pass out. No chest pain or palpitation. This could be combination of autonomic dysfunction and some autonomic effect of Parkinson's. Symptomatic severe orthostatic.symptomatic severe orthostatic.: Uncontrolled Patient currently takes 3 tablets 3 times a day of Sinemet.A Dr. 2 tablets 4 times a day. -severe orthostatic hypertension: Uncontrolled MAURIZIO stockings both the legs. 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 Hx Skin Cancer. Numbness in feet. Back problem/pain. Parkinson's. History of Any Multi-Drug Resistant Organisms: None Reported Past Surgical History: Orthopedic Surgery Additional Past Surgical History / Comment(s): Left elbow surgery, removal basal cell cancer, MULTIPLE LYMPH NODE BIOPSIES, COLONOSCOPY, chemo port Past Anesthesia/Blood Transfusion Reactions: No Reported Reaction Past Psychological History: No Psychological Hx Reported Smoking Status: Former smoker Past Alcohol Use History: Rare Additional Past Alcohol Use History / Comment(s): SMOKED FROM AGE [age], 1 PPD OR LESS. Past Drug Use History: None Reported
[2023-12-15] MEDS: ASPIRIN 81 MG PO SCH (17:50)
[2023-12-15] MEDS: TAMSULOSIN 0.4 MG CAP.ER.24H PO SCH (17:50)
[2023-12-16] MEDS: FLUDROCORTISONE 0.1 MG TAB PO SCH ×3 (08:40→20:03)
[2023-12-16] MEDS: traMADol 50 MG TAB PO SCH ×2 (08:40→20:02)
[2023-12-16] MEDS: CARBIDOPA-LEVODOPA 25-100 MG 1 EACH TAB PO SCH ×4 (08:41→21:22)
[2023-12-16] MEDS: ENOXAPARIN 40 MG/0.4 ML SYRINGE SQ SCH (08:41)
[2023-12-16] MEDS ORDERED: FLUDROCORTISONE 0.1 MG TAB PO STA (12:58)
--- NOTE | 2023-12-16 15:53 | P.PN ---
Progress Note - Text Progress Note Date: 12/16/23 Chief Complaint: Increasing falls This is a pleasant 83-year-old patient follows with Dr. Stewart. 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 Has back problems. Parkinson's. For which she follows Dr. Esquivel. And a baseline patient uses a walker. He last saw Dr. Esquivel in September. It has been noticed by the family and the patient that while patient's walking is suddenly become very weak and go down. Does not use caution us. Occasionally when patient gets epigastric dizzy lightheaded. Otherwise patient is rather tries to be active. No fever no chills. No chest pain or palpitations. Patient follows up in becoming increasingly frequent in the last few weeks. Patient is accompanied by his and son at the bedside. December 15, 2023: Sitting up in bed. Comfortable. and son at the bedside. As discussed yesterday patient Sinemet is being changed to 2 tablets 4 times a day. Patient's blood pressure extremely labile. Dropped down to 170 systolic on standing. Also systolic was up to 1 80-200, at times. MAURIZIO stockings are been ordered. Florinef 0.05 mg twice daily as needed. Discussed at length with the family. See how the patient does with PT OT. Unable to possibly because of drop in blood pressure. December 16, 2023: Reminded the nurse to have patient's MAURIZIO stockings. Found in the room. Patient still significantly orthostatic. Occasionally his systolic blood pressure is high. Florinef to be increased 2.1 mg twice daily. Discussed with patient and . Will most likely have to accept orthostatic blood pressure. Active Medications Acetaminophen (Acetaminophen Tab 325 Mg Tab) 650 mg PO Q6HR PRN PRN Reason: Mild Pain or Fever > 100.5 Alprazolam (Alprazolam 0.25 Mg Tab) 0.25 mg PO Q6HR PRN PRN Reason: Anxiety Aspirin (Aspirin 81 Mg) 81 mg PO PC-SUPPER [facility] Last Admin: 12/15/23 17:50 Dose: 81 mg Calcium Carbonate/Glycine (Calcium Carbonate 500 Mg Chewable) 1,000 mg PO Q4HR PRN PRN Reason: Dyspepsia Carbidopa/Levodopa (Carbidopa-Levodopa 25-100 Mg 1 Each Tab) 2 each PO QID [facility] Last Admin: 12/16/23 12:21 Dose: 2 each Enoxaparin Sodium (Enoxaparin 40 Mg/0.4 Ml Syringe) 40 mg SQ DAILY [facility] Last Admin: 12/16/23 08:41 Dose: 40 mg Fludrocortisone Acetate (Fludrocortisone 0.1 Mg Tab) 0.1 mg PO BID [facility] Lactulose (Lactulose 20 Gm/30 Ml Cup) 20 gm PO DAILY PRN PRN Reason: Constipation Melatonin (Melatonin 3 Mg Tablet) 3 mg PO HS PRN PRN Reason: Insomnia Naloxone HCl (Naloxone 0.4 Mg/Ml 1 Ml Vial) 0.2 mg IV Q2M PRN PRN Reason: Opioid Reversal Ondansetron HCl (Ondansetron 4 Mg/2 Ml Vial) 4 mg IVP Q8HR PRN PRN Reason: Nausea And Vomiting Tamsulosin HCl (Tamsulosin 0.4 Mg Cap.Er.24h) 0.4 mg PO PC-SUPPER [facility] Last Admin: 12/15/23 17:50 Dose: 0.4 mg Tramadol HCl (Tramadol 50 Mg Tab) 50 mg PO BID [facility] Last Admin: 12/16/23 08:40 Dose: 50 mg Social history: Patient smoked for 21 years stopped at age of 41. Less than a pack a day. Retired at age of 47. . Used to work in a chemistry lab. Physical examination: VITAL SIGNS: 97.7, 66, 18, 123.7, 98% room air. Orthostatic positive. General appearance: Bruising from falls EYES: Pupils equal. Conjunctiva normal. HEENT: External appearance of nose and ears normal, oral cavity grossly normal. NECK: JVD not raised; masses not palpable. HEART: First and second heart sounds are normal; no edema. LUNGS: Respiratory rate normal; clear to auscultation. ABDOMEN: Soft, nontender, liver spleen not palpable, no masses palpable. PSYCH: Alert and oriented x3; mood and affect normal. MUSCULOSKELETAL:No Clubbing/cyanosis;muscles-grossly intact. OA NEUROLOGICAL: [Cranial nerves grossly intact; no facial asymmetry, some bradykinesia INVESTIGATIONS, reviewed in the clinical context: White count 6.5 lobe in 12 platelets 2025 potassium 4.8 creatinine 0.81 UA: Unremarkable EKG tracing personally reviewed by me-no sinus rhythm Chest x-ray film personally reviewed by me-unremarkable CT of the head and cervical spine: DJD changes. No fracture Assessment and plan: -Patient has been increasing frequent falls. Patient has underlying Parkinson's and peripheral neuropathy from chemotherapy. Falls, on rather suddenly when patient is feeling weak does not pass out. No chest pain or palpitation. This could be combination of autonomic dysfunction and some autonomic effect of Parkinson's. Symptomatic severe orthostatic.symptomatic severe orthostatic.: Uncontrolled At home takes 3 tablets 3 times a day of Sinemet.Jelani Dr. 2 tablets 4 times a day. -severe orthostatic hypertension: Uncontrolled MAURIZIO stockings both the legs-nurse reminded today to put them on.. Increase Florinef 0.1 g twice a day -Parkinson's disease Changed to Sinemet to 2 tablets 4 times a day -Peripheral neuropathy from chemotherapy -Chronic gait dysfunction, uses a walker at baseline -Primary osteoarthritis multiple joints including the lower back -Chronic urine incontinence with BPH Flomax -Full code Medication adjustments as above. Discussed with patient . Will see how patient does. Past Medical History Past Medical History: Cancer, GERD/Reflux, Neurologic Disorder, Prostate Disorder Additional Past Medical History / Comment(s): See Dr Lucas's H&P. 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 Hx Skin Cancer. Numbness in feet. Back problem/pain. Parkinson's. History of Any Multi-Drug Resistant Organisms: None Reported Past Surgical History: Orthopedic Surgery Additional Past Surgical History / Comment(s): Left elbow surgery, removal basal cell cancer, MULTIPLE LYMPH NODE BIOPSIES, COLONOSCOPY, chemo port Past Anesthesia/Blood Transfusion Reactions: No Reported Reaction Past Psychological History: No Psychological Hx Reported Smoking Status: Former smoker Past Alcohol Use History: Rare Additional Past Alcohol Use History / Comment(s): SMOKED FROM AGE [age], 1 PPD OR LESS. Past Drug Use History: None Reported
[2023-12-16] MEDS: ASPIRIN 81 MG PO SCH (17:41)
[2023-12-16] MEDS: TAMSULOSIN 0.4 MG CAP.ER.24H PO SCH (17:41)
[2023-12-17] MEDS: FLUDROCORTISONE 0.1 MG TAB PO SCH ×2 (08:18→21:08)
[2023-12-17] MEDS: traMADol 50 MG TAB PO SCH ×2 (08:18→21:09)
[2023-12-17] MEDS: CARBIDOPA-LEVODOPA 25-100 MG 1 EACH TAB PO SCH ×4 (08:18→21:08)
[2023-12-17] MEDS: ENOXAPARIN 40 MG/0.4 ML SYRINGE SQ SCH (08:19)
--- NOTE | 2023-12-17 14:44 | P.PN ---
Progress Note - Text Progress Note Date: 12/17/23 Chief Complaint: Increasing falls This is a pleasant 83-year-old patient follows with Dr. Stewart. 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 Has back problems. Parkinson's. For which she follows Dr. Esquivel. And a baseline patient uses a walker. He last saw Dr. Esquivel in September. It has been noticed by the family and the patient that while patient's walking is suddenly become very weak and go down. Does not use caution us. Occasionally when patient gets epigastric dizzy lightheaded. Otherwise patient is rather tries to be active. No fever no chills. No chest pain or palpitations. Patient follows up in becoming increasingly frequent in the last few weeks. Patient is accompanied by his and son at the bedside. December 15, 2023: Sitting up in bed. Comfortable. and son at the bedside. As discussed yesterday patient Sinemet is being changed to 2 tablets 4 times a day. Patient's blood pressure extremely labile. Dropped down to 170 systolic on standing. Also systolic was up to 1 80-200, at times. MAURIZIO stockings are been ordered. Florinef 0.05 mg twice daily as needed. Discussed at length with the family. See how the patient does with PT OT. Unable to possibly because of drop in blood pressure. December 16, 2023: Reminded the nurse to have patient's MAURIZIO stockings. Found in the room. Patient still significantly orthostatic. Occasionally his systolic blood pressure is high. Florinef to be increased 2.1 mg twice daily. Discussed with patient and . Will most likely have to accept orthostatic blood pressure. December 17, 2023: Patient numbers are still significantly orthostatic. But patient been not getting any more dizziness. Has been using a walker. Discussed at length with the patient and . Will keep the patient on current medications. Seems to be good balance. They are moving to a smaller house. How to negotiate inside the house was discussed. is requesting to take him home tomorrow as opposed to today. As will have more help Active Medications Acetaminophen (Acetaminophen Tab 325 Mg Tab) 650 mg PO Q6HR PRN PRN Reason: Mild Pain or Fever > 100.5 Alprazolam (Alprazolam 0.25 Mg Tab) 0.25 mg PO Q6HR PRN PRN Reason: Anxiety Aspirin (Aspirin 81 Mg) 81 mg PO PC-SUPPER [facility] Last Admin: 12/16/23 17:41 Dose: 81 mg Calcium Carbonate/Glycine (Calcium Carbonate 500 Mg Chewable) 1,000 mg PO Q4HR PRN PRN Reason: Dyspepsia Carbidopa/Levodopa (Carbidopa-Levodopa 25-100 Mg 1 Each Tab) 2 each PO QID [facility] Last Admin: 12/17/23 11:55 Dose: 2 each Enoxaparin Sodium (Enoxaparin 40 Mg/0.4 Ml Syringe) 40 mg SQ DAILY [facility] Last Admin: 12/17/23 08:19 Dose: 40 mg Fludrocortisone Acetate (Fludrocortisone 0.1 Mg Tab) 0.1 mg PO BID [facility] Last Admin: 12/17/23 08:18 Dose: 0.1 mg Lactulose (Lactulose 20 Gm/30 Ml Cup) 20 gm PO DAILY PRN PRN Reason: Constipation Melatonin (Melatonin 3 Mg Tablet) 3 mg PO HS PRN PRN Reason: Insomnia Naloxone HCl (Naloxone 0.4 Mg/Ml 1 Ml Vial) 0.2 mg IV Q2M PRN PRN Reason: Opioid Reversal Ondansetron HCl (Ondansetron 4 Mg/2 Ml Vial) 4 mg IVP Q8HR PRN PRN Reason: Nausea And Vomiting Tamsulosin HCl (Tamsulosin 0.4 Mg Cap.Er.24h) 0.4 mg PO PC-SUPPER [facility] Last Admin: 12/16/23 17:41 Dose: 0.4 mg Tramadol HCl (Tramadol 50 Mg Tab) 50 mg PO BID [facility] Last Admin: 12/17/23 08:18 Dose: 50 mg Social history: Patient smoked for 21 years stopped at age of 41. Less than a pack a day. Retired at age of 47. . Used to work in a chemistry lab. Physical examination: VITAL SIGNS: 98.1, 64, 17, 169 x 80, 99% room air, orthostatic positive General appearance: Bruising from falls. Comfortable EYES: Pupils equal. Conjunctiva normal. HEENT: External appearance of nose and ears normal, oral cavity grossly normal. NECK: JVD not raised; masses not palpable. HEART: First and second heart sounds are normal; no edema. LUNGS: Respiratory rate normal; clear to auscultation. ABDOMEN: Soft, nontender, liver spleen not palpable, no masses palpable. PSYCH: Alert and oriented x3; mood and affect normal. MUSCULOSKELETAL:No Clubbing/cyanosis;muscles-grossly intact. OA NEUROLOGICAL: [Cranial nerves grossly intact; no facial asymmetry, some bradykinesia INVESTIGATIONS, reviewed in the clinical context: White count 6.5 lobe in 12 platelets 2025 potassium 4.8 creatinine 0.81 UA: Unremarkable EKG tracing personally reviewed by me-no sinus rhythm Chest x-ray film personally reviewed by me-unremarkable CT of the head and cervical spine: DJD changes. No fracture Assessment and plan: -Patient has been increasing frequent falls. Patient has underlying Parkinson's and peripheral neuropathy from chemotherapy. Falls, on rather suddenly when patient is feeling weak does not pass out. No chest pain or palpitation. This could be combination of autonomic dysfunction and some autonomic effect of Parkinson's. Symptomatic severe orthostatic.symptomatic severe orthostatic.: Uncontrolled At home takes 3 tablets 3 times a day of Sinemet.-changed over to . 2 tablets 4 times a day. -severe orthostatic hypertension: Some improvement. No further dizziness. MAURIZIO stockings both the legs- Florinef 0.1 g twice a day -Parkinson's disease Changed to Sinemet to 2 tablets 4 times a day -Peripheral neuropathy from chemotherapy -Chronic gait dysfunction, uses a walker at baseline -Primary osteoarthritis multiple joints including the lower back -Chronic urine incontinence with BPH Flomax -Full code Discussed at length with the patient and . Plan for discharge tomorrow. Past Medical History Past Medical History: Cancer, GERD/Reflux, Neurologic Disorder, Prostate Disorder Additional Past Medical History / Comment(s): See Dr Lucas's H&P. 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 Hx Skin Cancer. Numbness in feet. Back problem/pain. Parkinson's. History of Any Multi-Drug Resistant Organisms: None Reported Past Surgical History: Orthopedic Surgery Additional Past Surgical History / Comment(s): Left elbow surgery, removal basal cell cancer, MULTIPLE LYMPH NODE BIOPSIES, COLONOSCOPY, chemo port Past Anesthesia/Blood Transfusion Reactions: No Reported Reaction Past Psychological History: No Psychological Hx Reported Smoking Status: Former smoker Past Alcohol Use History: Rare Additional Past Alcohol Use History / Comment(s): SMOKED FROM AGE [age], 1 PPD OR LESS. Past Drug Use History: None Reported
[2023-12-17] MEDS: ASPIRIN 81 MG PO SCH (17:41)
[2023-12-17] MEDS: TAMSULOSIN 0.4 MG CAP.ER.24H PO SCH (17:46)
[2023-12-18] MEDS: CARBIDOPA-LEVODOPA 25-100 MG 1 EACH TAB PO SCH (07:52)
[2023-12-18 07:53] VITALS: BP 181/87; PULSE 61; RESP 20; TEMP 97.7
[2023-12-18] MEDS: FLUDROCORTISONE 0.1 MG TAB PO SCH (07:53)
[2023-12-18] MEDS: traMADol 50 MG TAB PO SCH (07:53)
[2023-12-18] MEDS: ENOXAPARIN 40 MG/0.4 ML SYRINGE SQ SCH (07:53)
--- NOTE | 2023-12-18 17:35 | P.DS ---
Providers Date of admission: 12/14/23 11:56 Expected date of discharge: 12/18/23 Attending physician: Bertin Santillan Primary care physician: Mc Stewatr [facility] Course: Chief Complaint: Increasing falls This is a pleasant 83-year-old patient follows with Dr. Stewart. 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 Has back problems. Parkinson's. For which she follows Dr. Esquivel. And a baseline patient uses a walker. He last saw Dr. Esquivel in September. It has been noticed by the family and the patient that while patient's walking is suddenly become very weak and go down. Does not use caution us. Occasionally when patient gets epigastric dizzy lightheaded. Otherwise patient is rather tries to be active. No fever no chills. No chest pain or palpitations. Patient follows up in becoming increasingly frequent in the last few weeks. Patient is accompanied by his and son at the bedside. December 15, 2023: Sitting up in bed. Comfortable. and son at the bedside. As discussed yesterday patient Sinemet is being changed to 2 tablets 4 times a day. Patient's blood pressure extremely labile. Dropped down to 170 systolic on standing. Also systolic was up to 1 80-200, at times. MAURIZIO stockings are been ordered. Florinef 0.05 mg twice daily as needed. Discussed at length with the family. See how the patient does with PT OT. Unable to possibly because of drop in blood pressure. December 16, 2023: Reminded the nurse to have patient's MAURIZIO stockings. Found in the room. Patient still significantly orthostatic. Occasionally his systolic blood pressure is high. Florinef to be increased 2.1 mg twice daily. Discussed with patient and . Will most likely have to accept orthostatic blood pressure. December 17, 2023: Patient numbers are still significantly orthostatic. But patient been not getting any more dizziness. Has been using a walker. Discussed at length with the patient and . Will keep the patient on current medications. Seems to be good balance. They are moving to a smaller house. How to negotiate inside the house was discussed. is requesting to take him home tomorrow as opposed to today. As will have more help December 18: Discharge planning discussed length with the patient and son at the bedside. Patient is expected to remain orthostatic. But has not been more dizzy. He will be managed on the current medication. Follow-up with Dr. Stewart. He is also tolerating well the current regime of Sinemet. He does follow with Dr. Esquivel. Higher blood pressures to be tolerated given his clinical picture. Discussion and discharge planning more than 35 minutes Social history: Patient smoked for 21 years stopped at age of 41. Less than a pack a day. Retired at age of 47. . Used to work in a chemistry lab. Physical examination: VITAL SIGNS: 97.7, 61, 20, orthostatic. Pulse ox 100% room air 163 x 76 General appearance: Bruising from falls. Comfortable EYES: Pupils equal. Conjunctiva normal. HEENT: External appearance of nose and ears normal, oral cavity grossly normal. NECK: JVD not raised; masses not palpable. HEART: First and second heart sounds are normal; no edema. LUNGS: Respiratory rate normal; clear to auscultation. ABDOMEN: Soft, nontender, liver spleen not palpable, no masses palpable. PSYCH: Alert and oriented x3; mood and affect normal. MUSCULOSKELETAL:No Clubbing/cyanosis;muscles-grossly intact. OA NEUROLOGICAL: [Cranial nerves grossly intact; no facial asymmetry, some bradykinesia INVESTIGATIONS, reviewed in the clinical context: White count 6.5 lobe in 12 platelets 2025 potassium 4.8 creatinine 0.81 UA: Unremarkable EKG tracing personally reviewed by me-no sinus rhythm Chest x-ray film personally reviewed by me-unremarkable CT of the head and cervical spine: DJD changes. No fracture Assessment and plan: -Patient has been increasing frequent falls. Patient has underlying Parkinson's and peripheral neuropathy from chemotherapy. Falls, on rather suddenly when patient is feeling weak does not pass out. No chest pain or palpitation. This could be combination of autonomic dysfunction and some autonomic effect of Parkinson's. Symptomatic severe orthostatic.symptomatic severe orthostatic.: Uncontrolled At home takes 3 tablets 3 times a day of Sinemet.-changed over to . 2 tablets 4 times a day. -severe orthostatic hypertension: Some improvement. No further dizziness. MAURIZIO stockings both the legs- Florinef 0.1 g twice a day -Parkinson's disease Changed to Sinemet to 2 tablets 4 times a day -Peripheral neuropathy from chemotherapy -Chronic gait dysfunction, uses a walker at baseline -Primary osteoarthritis multiple joints including the lower back -Chronic urine incontinence with BPH Flomax -Full code Disposition: Home Past Medical History Past Medical History: Cancer, GERD/Reflux, Neurologic Disorder, Prostate Disorder Additional Past Medical History / Comment(s): See Dr Lucas's H&P. 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 Hx Skin Cancer. Numbness in feet. Back problem/pain. Parkinson's. History of Any Multi-Drug Resistant Organisms: None Reported Past Surgical History: Orthopedic Surgery Additional Past Surgical History / Comment(s): Left elbow surgery, removal basal cell cancer, MULTIPLE LYMPH NODE BIOPSIES, COLONOSCOPY, chemo port Past Anesthesia/Blood Transfusion Reactions: No Reported Reaction Past Psychological History: No Psychological Hx Reported Smoking Status: Former smoker Past Alcohol Use History: Rare Additional Past Alcohol Use History / Comment(s): SMOKED FROM AGE [age], 1 PPD OR LESS. Past Drug Use History: None Reported Plan - Discharge Summary Discharge Rx Participant: No New Discharge Prescriptions: New Fludrocortisone [Florinef] 0.1 mg PO BID #60 tab Continue Aspirin 81 mg PO PC-SUPPER traMADol HCL 50 mg PO BID Tamsulosin [Flomax] 0.4 mg PO PC-SUPPER Changed Carbidopa/Levodopa [Carbidopa-Levodopa 25-100 Tab] 2 tab PO QID #0 Discharge Medication List Aspirin 81 mg PO PC-SUPPER 09/30/14 [History] Tamsulosin [Flomax] 0.4 mg PO PC-SUPPER 09/30/23 [History] traMADol HCL 50 mg PO BID 09/30/23 [History] Carbidopa/Levodopa [Carbidopa-Levodopa 25-100 Tab] 2 tab PO QID #0 12/18/23 [Rx] Fludrocortisone [Florinef] 0.1 mg PO BID #60 tab 12/18/23 [Rx] Follow up Appointment(s)/Referral(s): Mc Stewart DO [Primary Care Provider] - 1-2 days (The office will call you with an appointment date and time.) [facility] - As Needed Patient Instructions/Handouts: Fludrocortisone Acetate (By mouth), Fall Prevention for Older Adults (DC), Hypotension (DC) Discharge Disposition: HOME WITH HOME HEALTH SERVICES
== END 2023-12-18 12:17 | disposition home health service (06) | DRG 57 ==
LOC: EC 08:12 → 4SSUR 11:56 → 5NMEDONC 16:31
PROVIDERS: ADMIT Hospitalist; ATTEND Hospitalist
DX: G20.A1 Parkinson's disease without dyskinesia, without mention of fluctuations (principal); C83.10 Mantle cell lymphoma, unspecified site; R53.1 Weakness; T45.1X5A Adverse effect of antineoplastic and immunosuppressive drugs, initial encounter; X58.XXXA Exposure to other specified factors, initial encounter; G62.0 Drug-induced polyneuropathy; W19.XXXA Unspecified fall, initial encounter; D64.9 Anemia, unspecified; F41.9 Anxiety disorder, unspecified; G47.00 Insomnia, unspecified; I10 Essential (primary) hypertension; N40.1 Benign prostatic hyperplasia with lower urinary tract symptoms; Z91.81 History of falling; R29.6 Repeated falls; N39.498 Other specified urinary incontinence; Z79.52 Long term (current) use of systemic steroids; Z79.82 Long term (current) use of aspirin; Z85.828 Personal history of other malignant neoplasm of skin; Z87.891 Personal history of nicotine dependence
CPT/HCPCS: 36415; 70450; 71046; 72125; 80053; 81003; 83605; 83735; 83880; 84484; 85025; 85610; 85730; 93005; 94760; 99285

== ENCOUNTER 2024-09-14 16:14 | Inpatient (IN) | payer MEDICARE, BC ==
[2024-09-14 16:59] LABS: Basophils % (A) 0 %; Eosinophils # (A) 0.1 k/uL (0-0.7); Eosinophils % (A) 1 %; HCT 36.4 % (39.0-53.0); HGB 12.1 gm/dL (13.0-17.5); Lymphocytes # (A) 0.6 k/uL (1.0-4.8); Lymphocytes % (A) 7 %; MCH 32.7 pg (25.0-35.0); MCHC 33.2 g/dL (31.0-37.0); MCV 98.4 fL (80.0-100.0); Mean Platelet Volume 8.3; Monocytes # (A) 0.4 k/uL (0-1.0); Monocytes % (A) 4 %; Neutrophils # (A) 8.1 k/uL (1.3-7.7); Neutrophils % (A) 87 %; Platelet Count 251 k/uL (150-450); WBC 9.2 k/uL (3.8-10.6)
--- NOTE | 2024-09-14 16:59 | XR ---
EXAMINATION TYPE: XR chest 2V DATE OF EXAM: 09/14/2024 4:46 PM CLINICAL INDICATION: Male, 84 years old with history of Difficulty breathing ; [facility] COMPARISON: Chest radiographs from 12/14/2023 TECHNIQUE: XR chest 2V Frontal view of the chest. FINDINGS: Lungs/Pleura: There is no evidence of pleural effusion, focal consolidation, or pneumothorax. Pulmonary vascularity: Unremarkable. Heart/mediastinum: Cardiomediastinal silhouette is unremarkable. Musculoskeletal: No acute osseous pathology. Other findings: None Subcutaneous emphysema noted in the right lower chest wall with lucency extending along the chest wal l anteriorly on lateral view. IMPRESSION: Subcutaneous emphysema seen in the right lower chest wall with lucency just deep to the sternum anter ior to the lungs on lateral view. Further workup with CT chest recommended to exclude pneumothorax. [facility], , 09/14/2024 4:56 PM
[2024-09-14 17:10] LABS: Glucose 94 mg/dL (74-99)
[2024-09-14 17:11] LABS: ALT <6 U/L (4-49); African American GFR (CKD) 82 (>60 ml/min/1.73 sqM); Anion Gap 4 mmol/L; Blood Urea Nitrogen 27 mg/dL (9-20); Calcium 8.5 mg/dL (8.4-10.2); Carbon Dioxide 28 mmol/L (22-30); Chloride 101 mmol/L (98-107); Non-African American GFR(CKD) 71 (>60 ml/min/1.73 sqM); Sodium 133 mmol/L (137-145)
[2024-09-14 17:14] LABS: Potassium 5.3 mmol/L (3.5-5.1)
[2024-09-14 17:15] LABS: AST 24 U/L (17-59); Albumin 3.4 g/dL (3.5-5.0); Alkaline Phosphatase 61 U/L (38-126); Total Protein 5.7 g/dL (6.3-8.2)
--- NOTE | 2024-09-14 18:54 | ED ---
General Adult HPI - General Chief complaint: Fever Stated complaint: Weakness Time Seen by Provider: 09/14/24 16:20 Source: patient, EMS, RN notes reviewed, old records reviewed Mode of arrival: EMS Limitations: no limitations - History of Present Illness Initial comments: This is an 84-year-old male who presents to the emergency department with a past medical history significant for Parkinson disease. Patient comes in stating that he comes in today because he has a fever and a cough. Patient denies any other symptoms at this time. Patient chest pain palpitations. Patient denies any abdominal pain patient has nausea vomiting diarrhea. Denies any back pain. Patient states he is in no pain whatsoever. - Related Data Home Medications Medication Instructions Recorded Confirmed Aspirin 81 mg PO HS 09/30/14 09/14/24 Tamsulosin [Flomax] 0.4 mg PO HS 09/30/23 09/14/24 traMADol HCL 50 mg PO PC-BID@12,18 09/30/23 09/14/24 Carbidopa/Levodopa 2 tab PO PCHS 09/14/24 09/14/24 [Carbidopa/Levodopa 25-100 Tab] Fludrocortisone [Florinef] 0.1 mg PO BID PRN 09/14/24 09/14/24 traMADol HCL 100 mg PO PC-BRKFST 09/14/24 09/14/24 Allergies Allergy/AdvReac Type Severity Reaction Status Date / Time No Known Allergies Allergy Verified 09/14/24 17:38 Review of Systems ROS Statement: Those systems with pertinent positive or pertinent negative responses have been documented in the HPI. ROS Other: All systems not noted in ROS Statement are negative. Past Medical History Past Medical History: Cancer, GERD/Reflux, Neurologic Disorder, Prostate Disorder Additional Past Medical History / Comment(s): See Dr Lucas's H&P. 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 Hx Skin Cancer. Numbness in feet. Back problem/pain. Parkinson's. History of Any Multi-Drug Resistant Organisms: None Reported Past Surgical History: Orthopedic Surgery Additional Past Surgical History / Comment(s): Left elbow surgery, removal basal cell cancer, MULTIPLE LYMPH NODE BIOPSIES, COLONOSCOPY, chemo port Past Anesthesia/Blood Transfusion Reactions: No Reported Reaction Past Psychological History: No Psychological Hx Reported Smoking Status: Former smoker Past Alcohol Use History: Rare Past Drug Use History: None Reported - Past Family History Brother(s) Family Medical History: Cancer Father Family Medical History: Cancer General Exam - General Exam Comments Initial Comments: GENERAL: Patient is well-developed and well-nourished. Patient is nontoxic and well- hydrated and is in mild distress. ENT: Neck is soft and supple. No significant lymphadenopathy is noted. Oropharynx is clear. Moist mucous membranes. Neck has full range of motion without eliciting any pain. EYES: The sclera were anicteric and conjunctiva were pink and moist. Extraocular movements were intact and pupils were equal round and reactive to light. Eyelids were unremarkable. PULMONARY: Unlabored respirations. Good breath sounds bilaterally. No audible rales rhonchi or wheezing was noted. CARDIOVASCULAR: There is a regular rate and rhythm without any murmurs gallops or rubs. ABDOMEN: Soft and nontender with normal bowel sounds. SKIN: Skin is clear with no lesions or rashes and otherwise unremarkable. NEUROLOGIC: Patient is alert and oriented x3. Cranial nerves II through XII are grossly intact. Motor and sensory are also intact. Normal speech, volume and content. Symmetrical smile. MUSCULOSKELETAL: Normal extremities with adequate strength and full range of motion. LYMPHATICS: No significant lymphadenopathy is noted PSYCHIATRIC: Normal psychiatric evaluation. Limitations: no limitations Course Vital Signs 09/14/24 09/14/24 16:18 18:45 Temperature 101.3 F H Pulse Rate 78 75 Respiratory 18 16 Rate Blood Pressure 193/90 178/85 O2 Sat by Pulse 96 98 Oximetry Medical Decision Making - Medical Decision Making Was pt. sent in by a medical professional or institution (, PA, AUTO PARTS DELIVERY DRIVER, urgent care, hospital, or custodial...) When possible be specific @ -No Did you speak to anyone other than the patient for history (EMS, parent, family, police, friend...)? What history was obtained from this source @ -No Did you review nursing and triage notes (agree or disagree)? Why? @ -I reviewed and agree with nursing and triage notes Were old charts reviewed (outside hosp., previous admission, EMS record, old EKG, old radiological studies, urgent care reports/EKG's, custodial records)? Report findings @ -No old charts were reviewed Differential Diagnosis? @ -Differential Fever: Pneumonia, viral URI, endocarditis, myocarditis, pericarditis, otitis, sinusitis, peritonsillar Abscess, retropharyngeal Abscess, epiglottitis, peritonitis, appendicitis, Mirian cystitis, diverticulitis, hepatitis, colitis, UTI, PID, TOA, pyelonephritis, prostatitis, epididymitis, meningitis, encephalitis, pulmonary embolism, CVA, thyroid storm, pancreatitis, adrenal crisis, cavernous sinus thrombosis, this is not meant to be an all-inclusive list. EKG interpreted by me (3pts min.). @ -As above X-rays interpreted by me (1pt min.). @ -X-ray shows questionable air consistent with a pneumothorax CT interpreted by me (1pt min.). @ -CT of the chest shows no pneumothorax U/S interpreted by me (1pt. min.). @ -None done What testing was considered but not performed or refused? (CT, X-rays, U/S, labs)? Why? @ -None What meds were considered but not given or refused? Why? @ -None Did you discuss the management of the patient with other professionals (professionals i.e. , PA, AUTO PARTS DELIVERY DRIVER, lab, RT, psych nurse, social media specialist, clinical academic allergist, t eacher, canine enforcement officer, casework supervisor)? Give summary @ -I spoke with Dr. Santillan he agreed admit the patient admit the patient wrote admitting orders Was smoking cessation discussed for >3mins.? @ -No Was critical care preformed (if so, how long)? @ -No Were there social determinants of health that impacted care today? How? (Homelessness, low income, unemployed, alcoholism, drug addiction, transpor tation, low edu. Level, literacy, decrease access to med. care, residential, rehab)? @ -No Was there de-escalation of care discussed even if they declined (Discuss DNR or withdrawal of care, Hospice)? DNR status @ -No What co-morbidities impacted this encounter? (DM, HTN, Smoking, COPD, CAD, Cancer, CVA, ARF, Chemo, Hep., AIDS, mental health diagnosis, sleep apnea, morbid obesity)? @ -None Was patient admitted / discharged? Hospital course, mention meds given and route, prescriptions, significant lab abnormalities, going to OR and other pertinent info. @ -Patient received Tylenol Motrin for the fever. Patient was feeling okay but he was too weak to stand and family stated they could not take care of him so I spoke with Dr. 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 @ -No Drug Therapy requiring intensive monitoring for toxicity (Heparin, Nitro, Insulin, Cardizem)? @ -No Were any procedures done? @ -No Diagnosis/symptom? @ -COVID Acute, or Chronic, or Acute on Chronic? @ -Acute Uncomplicated (without systemic symptoms) or Complicated (systemic symptoms)? @ -Complicated Side effects of treatment? @ -No Exacerbation, Progression, or Severe Exacerbation? @ -No Poses a threat to life or bodily function? How? (Chest pain, USA, NC, pneumonia, PE, COPD, DKA, ARF, appy, cholecystitis, CVA, Diverticulitis, Homicidal, Suicidal, threat to staff... and all critical care pts) @ -No Diagnosis/symptom? @ -Parkinson's Acute, or Chronic, or Acute on Chronic? @ -Chronic Uncomplicated (without systemic symptoms) or Complicated (systemic symptoms)? @ -Complicated Side effects of treatment? @ -None Exacerbation, Progression, or Severe Exacerbation] @ -No Poses a threat to life or bodily function? @ -No - Lab Data Result diagrams: 09/14/24 16:32 09/14/24 16:32 Lab Results 09/14/24 09/14/24 09/14/24 Range/Units 16:32 16:32 16:32 WBC 9.2 (3.8-10.6) k/uL RBC 3.70 L (4.30-5.90) m/uL Hgb 12.1 L (13.0-17.5) gm/dL Hct 36.4 L (39.0-53.0) % MCV 98.4 (80.0-100.0) fL MCH 32.7 (25.0-35.0) pg MCHC 33.2 (31.0-37.0) g/dL RDW 13.0 (11.5-15.5) % Plt Count 251 (150-450) k/uL MPV 8.3 Neutrophils % 87 % Lymphocytes % 7 % Monocytes % 4 % Eosinophils % 1 % Basophils % 0 % Neutrophils # 8.1 H (1.3-7.7) k/uL Lymphocytes # 0.6 L (1.0-4.8) k/uL Monocytes # 0.4 (0-1.0) k/uL Eosinophils # 0.1 (0-0.7) k/uL Basophils # 0.0 (0-0.2) k/uL Sodium 133 L (137-145) mmol/L Potassium 5.3 H (3.5-5.1) mmol/L Chloride 101 (98-107) mmol/L Carbon Dioxide 28 (22-30) mmol/L Anion Gap 4 mmol/L BUN 27 H (9-20) mg/dL Creatinine 0.98 (0.66-1.25) mg/dL Est GFR (CKD-EPI)AfAm 82 (>60 ml/min/1.73 sqM) Est GFR (CKD-EPI)NonAf 71 (>60 ml/min/1.73 sqM) Glucose 94 (74-99) mg/dL Plasma Lactic Acid Adan (0.7-2.0) mmol/L Calcium 8.5 (8.4-10.2) mg/dL Total Bilirubin 1.0 (0.2-1.3) mg/dL AST 24 (17-59) U/L ALT <6 (4-49) U/L Alkaline Phosphatase 61 (38-126) U/L Total Protein 5.7 L (6.3-8.2) g/dL Albumin 3.4 L (3.5-5.0) g/dL Influenza Type A (PCR) Not Detected (Not Detectd) Influenza Type B (PCR) Not Detected (Not Detectd) RSV (PCR) Not Detected (Not Detectd) SARS-CoV-2 (PCR) Detected A (Not Detectd) 09/14/24 Range/Units 16:32 WBC (3.8-10.6) k/uL RBC (4.30-5.90) m/uL Hgb (13.0-17.5) gm/dL Hct (39.0-53.0) % MCV (80.0-100.0) fL MCH (25.0-35.0) pg MCHC (31.0-37.0) g/dL RDW (11.5-15.5) % Plt Count (150-450) k/uL MPV Neutrophils % % Lymphocytes % % Monocytes % % Eosinophils % % Basophils % % Neutrophils # (1.3-7.7) k/uL Lymphocytes # (1.0-4.8) k/uL Monocytes # (0-1.0) k/uL Eosinophils # (0-0.7) k/uL Basophils # (0-0.2) k/uL Sodium (137-145) mmol/L Potassium (3.5-5.1) mmol/L Chloride (98-107) mmol/L Carbon Dioxide (22-30) mmol/L Anion Gap mmol/L BUN (9-20) mg/dL Creatinine (0.66-1.25) mg/dL Est GFR (CKD-EPI)AfAm (>60 ml/min/1.73 sqM) Est GFR (CKD-EPI)NonAf (>60 ml/min/1.73 sqM) Glucose (74-99) mg/dL Plasma Lactic Acid Adan 0.9 (0.7-2.0) mmol/L Calcium (8.4-10.2) mg/dL Total Bilirubin (0.2-1.3) mg/dL AST (17-59) U/L ALT (4-49) U/L Alkaline Phosphatase (38-126) U/L Total Protein (6.3-8.2) g/dL Albumin (3.5-5.0) g/dL Influenza Type A (PCR) (Not Detectd) Influenza Type B (PCR) (Not Detectd) RSV (PCR) (Not Detectd) SARS-CoV-2 (PCR) (Not Detectd) Disposition Clinical Impression: COVID-19, Parkinsons disease Disposition: ADMITTED IP TO THIS HOSP Referrals: Mc Stewart DO [Primary Care Provider] - 1-2 days
[2024-09-14] MEDS: IBUPROFEN 600 MG TAB PO STA (19:22)
[2024-09-14] MEDS: ACETAMINOPHEN TAB 500 MG TAB PO STA (19:22)
--- NOTE | 2024-09-14 19:28 | CT ---
EXAMINATION TYPE: CT chest wo con CT DLP: 392 mGycm, Automated exposure control for dose reduction was used. DATE OF EXAM: 09/14/2024 7:09 PM COMPARISON: Chest radiograph from same day. CLINICAL INDICATION: Male, 84 years old with history of Subcutaneous air; [facility], TECHNIQUE: Multiple axial images were obtained through the chest. Sagittal and coronal reformats were created for review. MIP was performed on a separate workstation. Contrast used: mL of (None if empty) Oral contrast used: (None if empty) FINDINGS: LUNGS/ PLEURA: No evidence for pneumothorax, pleural effusion or focal consolidation. Motion artifact limits evaluation. AIRWAY: Patent and unremarkable. HEART: The heart is mildly increased in size..Atherosclerosis of the arterial vasculature. MEDIASTINUM: No gross evidence of adenopathy. Few scattered calcified and partially calcified lymph n odes present. VASCULATURE: No aortic aneurysm. MUSCULOSKELETAL: No acute osseous abnormalities SOFT TISSUES/LYMPH NODES: Unremarkable. LOWER NECK: No significant findings. UPPER ABDOMEN: No significant findings. IMPRESSION: 1. Finding on same day plain film radiograph is thought to be secondary to summation artifact. No ev idence for pneumothorax or subcutaneous emphysema. 2. No acute process. 3. Sequela of chronic granulomatous disease. 4. Mild cardiomegaly with coronary artery atherosclerosis. [facility], , 09/14/2024 7:26 PM
[2024-09-14] MEDS: SODIUM CHLORIDE 0.9% 1,000 ML IV STA (20:04)
[2024-09-14] MEDS ORDERED: ACETAMINOPHEN TAB 325 MG TAB PO PRN (20:59)
[2024-09-14] MEDS ORDERED: IBUPROFEN 600 MG TAB PO PRN (20:59)
[2024-09-14] MEDS: SODIUM CHLORIDE 0.9% 1,000 ML IV ONE (22:09)
[2024-09-14] MEDS ORDERED: ONDANSETRON 4 MG/2 ML VIAL IVP PRN (23:28)
[2024-09-14] MEDS ORDERED: CALCIUM CARBONATE 500 MG CHEWABLE PO PRN (23:28)
[2024-09-14] MEDS ORDERED: NALOXONE 0.4 MG/ML 1 ML VIAL IV PRN (23:28)
[2024-09-14] MEDS ORDERED: MELATONIN 3 MG TABLET PO PRN (23:28)
[2024-09-14] MEDS ORDERED: ALPRAZolam 0.25 MG TAB PO PRN (23:28)
[2024-09-15] MEDS: ASPIRIN 81 MG PO SCH (00:03)
[2024-09-15] MEDS: TAMSULOSIN 0.4 MG CAP.ER.24H PO SCH (00:03)
[2024-09-15] MEDS: ENOXAPARIN 40 MG/0.4 ML SYRINGE SQ SCH (00:03)
[2024-09-15 06:14] LABS: Appearance,Urine Clear (Clear); Bilirubin,Urine Negative (Negative); Blood,Urine Negative (Negative); Color,Urine Colorless; Glucose,Urine (UA) Negative (Negative); Ketones,Urine Negative (Negative); Leukocyte Esterase,Urine Negative (Negative); Nitrite,Urine Negative (Negative); Protein,Urine Negative (Negative); Specific Gravity,Urine 1.006 (1.001-1.035); Urobilinogen,Urine <2.0 mg/dL (<2.0)
[2024-09-15] MEDS ORDERED: FLUDROCORTISONE 0.1 MG TAB PO PRN (09:00)
[2024-09-15] MEDS ORDERED: LACTULOSE 20 GM/30 ML CUP PO PRN (09:00)
[2024-09-15] MEDS: traMADol 50 MG TAB PO SCH ×2 (09:34→13:07)
[2024-09-15] MEDS: CARBIDOPA-LEVODOPA 25-100 MG 1 EACH TAB PO SCH (09:36)
--- NOTE | 2024-09-15 12:11 | P.PN ---
Progress Note - Text Progress Note Date: 09/15/24 PM&R consult received, will see patient after he has been admitted and seen by therapies. Kathryn Abbasi PA-C
--- NOTE | 2024-09-15 18:04 | P.HPIM ---
History of Present Illness H&P Date: 09/15/24 Chief Complaint: Increased weakness This is a pleasant 84-year-old patient follows with Dr. Stewart. 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 Has back problems. Parkinson's. For which she follows Dr. Esquivel. And a baseline patient uses a walker. Has known orthostatic hypotension Presents to the ER with his and daughter. Patient will. Tired with been getting increasingly weak. Having falls and leg feel weak. No worsening of tremors. No much rigidity. For last 1 week symptoms been much worse. Even if unable to get off the toilet. Noticed over spiked a fever here. Came back positive for COVID. Denies any respiratory symptoms. He is on his Sinemet 2 tablets 4 times a day. Denies any urinary symptoms. Appetite is good Review of systems: GEN.: Fever, tired EYES: None HEENT: None NECK: None RESPIRATORY: None CARDIOVASCULAR: None GASTROINTESTINAL: None GENITOURINARY: Some urinary incontinence MUSCULOSKELETAL: Arthritis, generalized muscle weakness LYMPHATICS: None HEMATOLOGICAL: None PSYCHIATRY: None NEUROLOGICAL: [As above Social history: Patient smoked for 21 years stopped at age of 41. Less than a pack a day. Retired at age of 47. . Used to work in a chemistry lab. Physical examination: VITAL SIGNS: 101.3, Tmax, 20, 60, 1 6982, 100% room air General appearance: Laying in bed, comfortable EYES: Pupils equal. Conjunctiva normal. HEENT: External appearance of nose and ears normal, oral cavity grossly normal. NECK: JVD not raised; masses not palpable. HEART: First and second heart sounds are normal; no edema. LUNGS: Respiratory rate normal; clear to auscultation. ABDOMEN: Soft, nontender, liver spleen not palpable, no masses palpable. PSYCH: Alert and oriented x3; mood and affect normal. MUSCULOSKELETAL:No Clubbing/cyanosis;muscles-grossly intact. OA NEUROLOGICAL: [Cranial nerves grossly intact; no facial asymmetry, no rigidity. No tremors. LYMPHATICS: No lymph nodes palpable in the axilla and neck INVESTIGATIONS, reviewed in the clinical context: September 14: White count 9.2 hemoglobin 12.1 platelets 251 sodium 133 potassium 5.3 BUN 27 creatinine 0.98 UA: Unremarkable COVID-19 detected Assessment and plan: -Acute medical debility probably COVID-19. Patient finding it difficult to get up to the toilet seat. Out from the ground. PT OT -Idiopathic Parkinson's disease Continue with current dose of Sinemet 4 times a day -COVID-19 acute infection. 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 Consult Lalito Andersen for inpatient rehab assessment. PT OT. Resume home medications. Given the complexity and severity of patient's condition expect the patient to be in the hospital at least for 2 overnights Past Medical History Past Medical History: Cancer, GERD/Reflux, Neurologic Disorder, Prostate D isorder Additional Past Medical History / Comment(s): See Dr Lucas's H&P. 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 Hx Skin Cancer. Numbness in feet. Back problem/pain. Parkinson's. History of Any Multi-Drug Resistant Organisms: None Reported Past Surgical History: Orthopedic Surgery Additional Past Surgical History / Comment(s): Left elbow surgery, removal basal cell cancer, MULTIPLE LYMPH NODE BIOPSIES, COLONOSCOPY, chemo port Past Anesthesia/Blood Transfusion Reactions: No Reported Reaction Past Psychological History: No Psychological Hx Reported Smoking Status: Former smoker Past Alcohol Use History: Rare Past Drug Use History: None Reported - Past Family History Brother(s) Family Medical History: Cancer Father Family Medical History: Cancer Medications and Allergies Home Medications Medication Instructions Recorded Confirmed Type Aspirin 81 mg PO HS 09/30/14 09/14/24 History Tamsulosin [Flomax] 0.4 mg PO HS 09/30/23 09/14/24 History traMADol HCL 50 mg PO PC-BID@,18 09/30/23 09/14/24 History Carbidopa/Levodopa 2 tab PO PCHS 09/14/24 09/14/24 History [Carbidopa/Levodopa 25-100 Tab] Fludrocortisone [Florinef] 0.1 mg PO BID PRN 09/14/24 09/14/24 History traMADol HCL 100 mg PO PC-BRKFST 09/14/24 09/14/24 History Allergies Allergy/AdvReac Type Severity Reaction Status Date / Time No Known Allergies Allergy Verified 09/14/24 17:38 Physical Exam Vitals: Vital Signs Temp Pulse Resp BP Pulse Ox 09/15/24 09:22 97.7 F 50 L 16 180/87 98 09/15/24 07:40 98.2 F 60 20 169/82 100 09/15/24 04:50 98.0 F 60 16 143/70 99 09/14/24 23:41 98.7 F 62 16 129/62 98 09/14/24 22:09 98.9 F 16 150/70 96 09/14/24 18:45 75 16 178/85 98 09/14/24 16:18 101.3 F H 78 18 193/90 96 Intake and Output 09/14/24 09/15/24 09/15/24 22:59 06:59 14:59 Other: Weight 72.121 kg Results CBC & Chem 7: 09/14/24 16:32 09/14/24 16:32 Labs: Abnormal Lab Results - Last 24 Hours (Table) 09/14/24 09/14/24 09/14/24 Range/Units 16:32 16:32 16:32 RBC 3.70 L (4.30-5.90) m/uL Hgb 12.1 L (13.0-17.5) gm/dL Hct 36.4 L (39.0-53.0) % Neutrophils # 8.1 H (1.3-7.7) k/uL Lymphocytes # 0.6 L (1.0-4.8) k/uL Sodium 133 L (137-145) mmol/L Potassium 5.3 H (3.5-5.1) mmol/L BUN 27 H (9-20) mg/dL Total Protein 5.7 L (6.3-8.2) g/dL Albumin 3.4 L (3.5-5.0) g/dL SARS-CoV-2 (PCR) Detected A (Not Detectd)
[2024-09-15] MEDS: lisinopriL 5 MG TAB PO SCH (23:19)
--- NOTE | 2024-09-16 11:31 | P.CONS ---
History of Present Illness - Reason for Consult Consult date: 09/16/24 Rehab Recommendations - Chief Complaint Weakness - History of Present Illness Patient is a 84 year old, right handed, male, who lives with his at [facility] apartment. They live on the second floor, but there is an elevator in the building. Prior to admission, pt was ambulating with the use of a 2WW while in his home and with a wheelchair while outside of his home. Pt needed assistance from for basic/advanced ADLs. Current driving: no. Transportation by: . Support system: and daughter. DME: 2WW, wheelchair, shower chair, commode. Patient presented to the ER with complaints of fever, cough, and increasing weakness over the past week. Patient reports his increasing weakness resulted in him being unable to stand from the toilet prior to his arrival to the ER. Patient and report increasing difficulty with being able to care for him at home due to the increasing weakness. Patient denies CP, SOB, abdominal pain. Denies complaints with bowel and bladder. Reports LBM was 09/14. Patient was tested for COVID-19 in the ER, which came back positive. PMR consulted for rehab recommendations. Therapy in to evaluate patient. Review of Systems As above in HPI. Past Medical History Past Medical History: Cancer, GERD/Reflux, Neurologic Disorder, Prostate Diso rder Additional Past Medical History / Comment(s): See Dr Lucas's H&P. 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 Hx Skin Cancer. Numbness in feet. Back problem/pain. Parkinson's. History of Any Multi-Drug Resistant Organisms: None Reported Past Surgical History: Orthopedic Surgery Additional Past Surgical History / Comment(s): Left elbow surgery, removal basal cell cancer, MULTIPLE LYMPH NODE BIOPSIES, COLONOSCOPY, chemo port Past Anesthesia/Blood Transfusion Reactions: No Reported Reaction Past Psychological History: No Psychological Hx Reported Smoking Status: Former smoker Past Alcohol Use History: Rare Past Drug Use History: None Reported - Past Family History Brother(s) Family Medical History: Cancer Father Family Medical History: Cancer Medications and Allergies Home Medications Medication Instructions Recorded Confirmed Type Aspirin 81 mg PO HS 09/30/14 09/14/24 History Tamsulosin [Flomax] 0.4 mg PO HS 09/30/23 09/14/24 History traMADol HCL 50 mg PO PC-BID@12,18 09/30/23 09/14/24 History Carbidopa/Levodopa 2 tab PO PCHS 09/14/24 09/14/24 History [Carbidopa/Levodopa 25-100 Tab] Fludrocortisone [Florinef] 0.1 mg PO BID PRN 09/14/24 09/14/24 History traMADol HCL 100 mg PO PC-BRKFST 09/14/24 09/14/24 History Allergies Allergy/AdvReac Type Severity Reaction Status Date / Time No Known Allergies Allergy Verified 09/14/24 17:38 Physical Exam Vitals: Vital Signs Temp Pulse Pulse Resp BP BP BP 09/16/24 07:00 96.8 F L 62 17 196/86 09/16/24 02:00 56 L 09/16/24 01:46 97.6 F 56 L 16 169/70 09/15/24 22:20 178/80 176/68 09/15/24 21:55 188/76 09/15/24 20:23 74 09/15/24 20:00 98.1 F 74 16 193/88 09/15/24 14:49 98.3 F 50 L 16 165/75 09/15/24 13:10 57 L 18 158/71 Pulse Ox 09/16/24 07:00 99 09/16/24 02:00 09/16/24 01:46 98 09/15/24 22:20 09/15/24 21:55 09/15/24 20:23 09/15/24 20:00 98 09/15/24 14:49 98 09/15/24 13:10 98 Intake and Output 09/15/24 09/16/24 09/16/24 22:59 06:59 14:59 Intake Total 598 240 118 Output Total 700 400 Balance -102 -160 118 Intake: Oral 598 240 118 Output: Urine 700 400 Other: Voiding Method External Catheter External Catheter Weight 72.121 kg General: WDWN, elderly male, laying in bed, NAD, and daughter at bedside HEENT: head normocephalic, atraumatic; moist mucous membranes, external ears intact with hearing intact to conversational speech CV: no acute cardiac distress Lungs: no acute distress, on RA Abdomen: soft, NT, ND MSK: full ROM bilateral UE and LEs Neuro: A&O x 2 (alert to self and year). CN 2-12 grossly intact Sensation intact to light touch bilateral UE and LEs MMT: BL SABD/EE/EF 5/5 BL HF/KE/DF/EHL 03/28 MSR:BL Biceps/brachioradialis/triceps - 1 Psych: mood calm, cooperative, flat affect with mask facies Extremities: calves supple, non tender, no edema Skin: right elbow wound, scab to nose, ecchymosis above left eye, multiple BLLE abrasions/scabbing Results CBC & Chem 7: 09/14/24 16:32 09/14/24 16:32 Assessment and Plan Assessment: #Impaired Gait and ADLS 2' Parkinson's Disease Exacerbation -PT/OT -Sinemet #Acute COVID-19 #Peripheral Neuropathy #Chronic low back pain #Osteoarthritis Bowel/ Bladder: [Nursing to monitor and report concerns if any.] -Patient using Purewick -Flomax Skin/wound: [Skin/Wound care to follow as needed.] Pain Management: -Tylenol 650 mg Q4H PRN -Ibuprofen 600 mg QID PRN -Tramadol DVT Prophylaxis: -Lovenox Your medical dx and mgt Goals: Modified Independent mobility and ADLS both basic and advanced; increased functional mobility/strength; increased balance, safety, endurance. Improvement in medical issues through your care. Barriers: fall risk, cognition Discharge recommendation: Discussed IPR VS BERNIE with patient and family. Family and patient agreeable to IPR pending therapy evaluations. Patient has good family support and motivated for therapy. Will follow patient case and await for therapy notes. Consult prepared by Mary SOLIZ. Thank you for this consultation. Patient seen and examined with Kathryn DAVIS and in collaboration with Dr Yi
[2024-09-16] MEDS: amLODIPine 10 MG TAB PO SCH (11:47)
[2024-09-16 12:55] LABS: African American GFR (CKD) >90 (>60 ml/min/1.73 sqM); Anion Gap 0 mmol/L; Blood Urea Nitrogen 20 mg/dL (9-20); Calcium 8.4 mg/dL (8.4-10.2); Carbon Dioxide 30 mmol/L (22-30); Chloride 105 mmol/L (98-107); Glucose 95 mg/dL (74-99); Non-African American GFR(CKD) 82 (>60 ml/min/1.73 sqM); Potassium 4.1 mmol/L (3.5-5.1); Sodium 135 mmol/L (137-145)
--- NOTE | 2024-09-17 08:20 | P.PN ---
Subjective Progress Note Date: 09/17/24 This is a pleasant 84 male history of Parkinson's who comes in probably positive for COVID he has had fever and increased weakness at home. Today he is fever free, he is on room air he is not complaining of any shortness of breath. His labs today reveal a sodium level of 135 potassium of 4.1 BUN of 20 creatinine of 0.80. His urinalysis is negative for any signs of infection. His blood pressure has been running in the 190s systolic for this reason he was started on lisinopril blood pressure after taking his medication is 158/72. Family has concerns with him being on blood pressure medication as in the past he has extra required midodrine for low blood pressures. Review of Systems Constitutional: Denied any fatigue denied any fever. Cardio vascular: denied any chest pain, palpitations Gastrointestinal: denied any nausea, vomiting, diarrhea Pulmonary: Denied any shortness of breath cough Neurologic denied any new focal deficits All inpatient medications were reviewed and appropriate changes in these medications as dictated in the interval history and assessment and plan. PHYSICAL EXAMINATION: GENERAL: The patient is alert and oriented x3, not in any acute distress. Well developed, well nourished. HEENT: Pupils are round and equally reacting to light. EOMI. No scleral icterus. No conjunctival pallor. Normocephalic, atraumatic. No pharyngeal erythema. No thyromegaly. CARDIOVASCULAR: S1 and S2 present. No murmurs, rubs, or gallops. PULMONARY: Chest is clear to auscultation, no wheezing or crackles. ABDOMEN: Soft, nontender, nondistended, normoactive bowel sounds. No palpable organomegaly. MUSCULOSKELETAL: No joint swelling or deformity. EXTREMITIES: No cyanosis, clubbing, or pedal edema. NEUROLOGICAL: Gross neurological examination did not reveal any focal deficits. SKIN: No rashes. Assessment and plan -Acute medical debility probably COVID-19. Patient finding it difficult to get up to the toilet seat and was found on the ground. He is currently pending PT OT evaluation for subacute versus inpatient rehab and social work discharge planning -Idiopathic Parkinson's disease Continue with current dose of Sinemet 4 times a day -COVID-19 acute infection. 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 We are currently pending physical therapy notes and evaluation as well as social work to follow-up for discharge planning. At this time he is only receiving supportive care and will be considered medically stable for discharge home once there is a rehab plan in place. The impression and plan of care has been dictated by Genny Aviles Nurse Practitioner as directed. Dr. Mauri MD I have performed a history and physical examination and medical decision making of this patient, discussed the same with the dictator, and agree with the dictators assessment and plan as written, documented as a scribe. Based on total visit time, I have performed more than 50% of this visit. Objective - Vital Signs Vital signs: Vital Signs Temp 98.1 F 09/17/24 07:30 Pulse 59 L 09/17/24 07:30 Resp 20 09/17/24 07:30 BP 167/72 09/17/24 07:30 Pulse Ox 95 09/17/24 07:30 FiO2 Intake & Output 09/16/24 09/17/24 09/17/24 18:59 06:59 18:59 Intake Total 354 240 Output Total 1050 850 Balance -696 -610 Intake: Oral 354 240 Output: Urine 1050 850 Other: Voiding Method External Catheter # Voids 1 - Labs CBC & Chem 7: 09/14/24 16:32 09/16/24 12:22 Labs: Abnormal Lab Results - Last 24 Hours (Table) 09/16/24 Range/Units 12:22 Sodium 135 L (137-145) mmol/L Assessment and Plan Time with Patient: Less than 30
--- NOTE | 2024-09-17 13:36 | P.PN ---
Subjective 09/16/2024: This is a pleasant 84 male history of Parkinson's who comes in probably positive for COVID he has had fever and increased weakness at home. Today he is fever free, he is on room air he is not complaining of any shortness of breath. His labs today reveal a sodium level of 135 potassium of 4.1 BUN of 20 creatinine of 0.80. His urinalysis is negative for any signs of infection. His blood pressure has been running in the 190s systolic for this reason he was started on lisinopril blood pressure after taking his medication is 158/72. Family has concerns with him being on blood pressure medication as in the past he has extra required midodrine for low blood pressures. 09/17/2024: Patient seen at bedside, no significant overnight events. Patient continues to be fever free and does not have any complaints of shortness of breath chest pain or increased cough. No new labs for today. Blood pressure is slightly elevated systolic 167 recently before that running at systolic of 129. It appears the lisinopril that was started yesterday is helping. Review of Systems Constitutional: Denied any fatigue denied any fever. Cardio vascular: denied any chest pain, palpitations Gastrointestinal: denied any nausea, vomiting, diarrhea Pulmonary: Denied any shortness of breath cough Neurologic denied any new focal deficits All inpatient medications were reviewed and appropriate changes in these medications as dictated in the interval history and assessment and plan. PHYSICAL EXAMINATION: GENERAL: The patient is alert and oriented x3, not in any acute distress. Well developed, well nourished. HEENT: Pupils are round and equally reacting to light. EOMI. No scleral icterus. No conjunctival pallor. Normocephalic, atraumatic. No pharyngeal erythema. No thyromegaly. CARDIOVASCULAR: S1 and S2 present. No murmurs, rubs, or gallops. PULMONARY: Chest is clear to auscultation, no wheezing or crackles. ABDOMEN: Soft, nontender, nondistended, normoactive bowel sounds. No palpable organomegaly. MUSCULOSKELETAL: No joint swelling or deformity. EXTREMITIES: No cyanosis, clubbing, or pedal edema. NEUROLOGICAL: Gross neurological examination did not reveal any focal deficits. SKIN: No rashes. Assessment and plan -Acute medical debility probably COVID-19. Patient finding it difficult to get up to the toilet seat and was found on the ground. He is currently pending PT OT evaluation for subacute versus inpatient rehab and social work discharge planning -Idiopathic Parkinson's disease Continue with current dose of Sinemet 4 times a day -COVID-19 acute infection. 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 We are currently pending physical therapy notes and evaluation as well as social work to follow-up for discharge planning. At this time he is only receiving supportive care and will be considered medically stable for discharge home once there is a rehab plan in place. Patient requires 1 more day in the hospital for their insurance requirements to be met so insurance can pay for patient's acute rehab. Inpatient rehab at [place] does not to start patients on the weekend so patient will be leaving for there on Friday (09/20) Objective - Vital Signs Vital signs: Vital Signs Temp 98.1 F 09/17/24 07:30 Pulse 59 L 09/17/24 07:30 Resp 20 09/17/24 07:30 BP 167/72 09/17/24 07:30 Pulse Ox 95 09/17/24 07:30 FiO2 Intake & Output 09/16/24 09/17/24 09/17/24 18:59 06:59 18:59 Intake Total 354 240 236 Output Total 1050 850 400 Balance -696 -610 -164 Intake: Oral 354 240 236 Output: Urine 1050 850 400 Other: Voiding Method External Catheter External Catheter # Voids 1 - Labs CBC & Chem 7: 09/14/24 16:32 09/16/24 12:22 Labs: Abnormal Lab Results - Last 24 Hours (Table) 09/16/24 Range/Units 12:22 Sodium 135 L (137-145) mmol/L
--- NOTE | 2024-09-17 14:21 | P.DS ---
Providers Date of admission: 09/15/24 18:04 Attending physician: Bertin Santillan Consults: 09/15/24 11:40 Consult Physician Routine Consulting Provider: Nithin Ordoñez Reason/Comments: IPR Do you want consulting provider notified?: Yes Primary care physician: Mc Stewart Hospital Course: Discharge Diagnosis: Acute medical debility probably COVID-19 Idiopathic Parkinson's disease COVID-19 acute infection Orthostatic hypotension Peripheral neuropathy from chemotherapy Chronic gait dysfunction Primary osteoarthritis multiple joints including lower back Chronic urine incontinence with BPH Hospital Course: This is a pleasant 84-year-old patient follows with Dr. Stewart. 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 Has back problems. Parkinson's. For which she follows Dr. Esquivel. And a baseline patient uses a walker. Has known orthostatic hypotension Presents to the ER with his and daughter. Patient will. Tired with been getting increasingly weak. Having falls and leg feel weak. No worsening of tremors. No much rigidity. For last 1 week symptoms been much worse. Even if unable to get off the toilet. Noticed over spiked a fever here. Came back positive for COVID. Denies any respiratory symptoms. He is on his Sinemet 2 tablets 4 times a day. Denies any urinary symptoms. Appetite is good 09/16/2024: This is a pleasant 84 male history of Parkinson's who comes in probably positive for COVID he has had fever and increased weakness at home. Today he is fever free, he is on room air he is not complaining of any shortness of breath. His labs today reveal a sodium level of 135 potassium of 4.1 BUN of 20 creatinine of 0.80. His urinalysis is negative for any signs of infection. His blood pressure has been running in the 190s systolic for this reason he was started on lisinopril blood pressure after taking his medication is 158/72. Family has concerns with him being on blood pressure medication as in the past he has extra required midodrine for low blood pressures. 09/17/2024: Patient seen at bedside, no significant overnight events. Patient continues to be fever free and does not have any complaints of shortness of breath chest pain or increased cough. No new labs for today. Blood pressure is slightly elevated systolic 167 recently before that running at systolic of 129. It appears the lisinopril that was started yesterday is helping. While admitted to the hospital patient received supportive care for his COVID-19 infection, but throughout his time the hospital was asymptomatic and never required oxygen, and never desaturated. Patient was seen by PMR who recommended the patient go to either an inpatient rehab or short-term acute rehab. In the end it was decided the patient would do well at inpatient rehab at [facility]. Patient is medically and hemodynamically stable for discharge. No medication changes were made during the stay. Patient is discharged to inpatient rehab at [facility]. Patient is advised to follow-up with his PCP. Pt seen and examined at bedside: Patient seen at bedside, excited at the prospect of leaving for rehab. Vital signs reveiwed and stable: General: non toxic, no distress, appears at stated age, normal weight Derm: no unusual rashes/lesions, warm Head: atraumatic, normocephalic, symmetric Eyes: EOMI, no lid lag, anicteric sclera, pupils equal round reactive to light ENT: Nose and ears atraumatic Neck: No cervical lymphadenopathy, trachea midline, supple Mouth: no lip lesion, mucus membranes moist Cardiovascular: S1S2 reg, no murmur, positive dorsalis pedis pulse bilateral, no edema Lungs: Decreased air entry bilaterally, no rhonchi, no rales, no accessory muscle use Abdominal: soft, nontender to palpation, no guarding Ext: muscle strength 5 out of 5 in all 4 extremities grossly, no gross muscle atrophy, no contractures, Neuro: CN II-XI grossly intact, no gross focal neuro deficits Psych: Alert, oriented, appropriate affect A total of greater than 30 minutes were spent preparing this complex discarge summary. Patient was discharged on 09/17/2024, 14: 18. Plan - Discharge Summary New Discharge Prescriptions: No Action Aspirin 81 mg PO HS traMADol HCL 50 mg PO PC-BID@18 Tamsulosin [Flomax] 0.4 mg PO HS traMADol HCL 100 mg PO PC-BRKFST Carbidopa/Levodopa [Carbidopa/Levodopa 25-100 Tab] 2 tab PO PCHS Fludrocortisone [Florinef] 0.1 mg PO BID PRN PRN Reason: BP <110 Discharge Medication List Aspirin 81 mg PO HS 11/07/14 [History] Tamsulosin [Flomax] 0.4 mg PO HS 09/30/23 [History] traMADol HCL 50 mg PO PC-BID@12,18 09/30/23 [History] Carbidopa/Levodopa [Carbidopa/Levodopa 25-100 Tab] 2 tab PO PCHS 09/14/24 [History] Fludrocortisone [Florinef] 0.1 mg PO BID PRN 09/14/24 [History] traMADol HCL 100 mg PO PC-BRKFST 09/14/24 [History] Follow up Appointment(s)/Referral(s): Mc Stewart DO [Primary Care Provider] - 1-2 days
[2024-09-17 14:31] VITALS: BP 101/45; PULSE 58; RESP 18; TEMP 97.2
== END 2024-09-17 15:39 | DRG 178 ==
LOC: EC 16:14 → 6NMEDSUR 21:00 → OBSVTOIN 09-15 18:04
PROVIDERS: ADMIT Hospitalist; ATTEND Hospitalist
DX: U07.1 COVID-19 (principal); C83.10 Mantle cell lymphoma, unspecified site; G20.A1 Parkinson's disease without dyskinesia, without mention of fluctuations; G62.0 Drug-induced polyneuropathy; G89.29 Other chronic pain; M54.50 Low back pain, unspecified; I95.1 Orthostatic hypotension; K21.9 Gastro-esophageal reflux disease without esophagitis; M15.9 Polyosteoarthritis, unspecified; N40.1 Benign prostatic hyperplasia with lower urinary tract symptoms; N39.498 Other specified urinary incontinence; R29.6 Repeated falls; T45.1X5A Adverse effect of antineoplastic and immunosuppressive drugs, initial encounter; Z79.82 Long term (current) use of aspirin; Z85.828 Personal history of other malignant neoplasm of skin; Z87.891 Personal history of nicotine dependence; Z91.81 History of falling
CPT/HCPCS: 36415; 51702; 71046; 71250; 80048; 80053; 81003; 83605; 85025; 87636; 96360; 96361; 96372; 99285

== ENCOUNTER 2024-10-29 15:22 | Emergency (ER) | payer MEDICARE, BC ==
[2024-10-29 15:34] VITALS: TEMP 97.6
--- NOTE | 2024-10-29 15:46 | ED ---
General Adult HPI - General Chief complaint: Fall Stated complaint: Fall Time Seen by Provider: 10/29/24 15:30 Source: patient, EMS, RN notes reviewed, old records reviewed Mode of arrival: EMS Limitations: no limitations - History of Present Illness Initial comments: This is an 84-year-old male with Parkinson's disease. Patient states he was in a park a lot and slept and fell and struck his head. Patient denies loss of consciousness. Patient denies headache patient denies any neck pain. Denies any chest or back pain. Patient has any difficulty breathing. Patient denies any injury to the extremities. Patient states she has got a lot of old abrasions from multiple falls in the recent past. Patient states she has had a tetanus in the last 3 years - Related Data Home Medications Medication Instructions Recorded Confirmed Aspirin 81 mg PO HS 09/30/14 09/14/24 Tamsulosin [Flomax] 0.4 mg PO HS 09/30/23 09/14/24 traMADol HCL 50 mg PO PC-BID@12,18 09/30/23 09/14/24 Carbidopa/Levodopa 2 tab PO PCHS 09/14/24 09/14/24 [Carbidopa/Levodopa 25-100 Tab] Fludrocortisone [Florinef] 0.1 mg PO BID PRN 09/14/24 09/14/24 traMADol HCL 100 mg PO PC-BRKFST 09/14/24 09/14/24 Allergies Allergy/AdvReac Type Severity Reaction Status Date / Time No Known Allergies Allergy Verified 10/29/24 15:34 Review of Systems ROS Statement: Those systems with pertinent positive or pertinent negative responses have been documented in the HPI. ROS Other: All systems not noted in ROS Statement are negative. Past Medical History Past Medical History: Cancer, GERD/Reflux, Neurologic Disorder, Prostate Disorder Additional Past Medical History / Comment(s): See Dr Lucas's H&P. 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 Hx Skin Cancer. Numbness in feet. Back problem/pain. Parkinson's. History of Any Multi-Drug Resistant Organisms: None Reported Past Surgical History: Orthopedic Surgery Additional Past Surgical History / Comment(s): Left elbow surgery, removal basal cell cancer, MULTIPLE LYMPH NODE BIOPSIES, COLONOSCOPY, chemo port Past Anesthesia/Blood Transfusion Reactions: No Reported Reaction Past Psychological History: No Psychological Hx Reported Smoking Status: Former smoker Past Alcohol Use History: Rare Past Drug Use History: None Reported - Past Family History Brother(s) Family Medical History: Cancer Father Family Medical History: Cancer General Exam - General Exam Comments Initial Comments: GENERAL: Patient is well-developed and well-nourished. Patient is nontoxic and well- hydrated and is in no acute distress. ENT: Neck is soft and supple. No significant lymphadenopathy is noted. Oropharynx is clear. Moist mucous membranes. Neck has full range of motion without eliciting any pain. EYES: The sclera were anicteric and conjunctiva were pink and moist. Extraocular movements were intact and pupils were equal round and reactive to light. Eyelids were unremarkable. PULMONARY: Unlabored respirations. Good breath sounds bilaterally. No audible rales rhonchi or wheezing was noted. CARDIOVASCULAR: Patient has a regular rate and rhythm ABDOMEN: Soft and nontender with normal bowel sounds. No palpable organomegaly was noted. There is no palpable pulsatile mass. SKIN: Skin tear on the left frontal region of his scalp and there is a laceration has a stellate laceration with each branch having about a 1-1/2 cm length and there are 3 of them. Patient has multiple healing abrasions to both arms NEUROLOGIC: Patient is alert and oriented x3. Cranial nerves II through XII are grossly intact. Motor and sensory are also intact. Normal speech, volume and content. Symmetrical smile. MUSCULOSKELETAL: Normal extremities with adequate strength and full range of motion. LYMPHATICS: No significant lymphadenopathy is noted PSYCHIATRIC: Normal psychiatric evaluation. Limitations: no limitations Course Vital Signs 10/29/24 10/29/24 10/29/24 15:27 16:31 17:28 Temperature 97.6 F Pulse Rate 69 70 71 Respiratory 16 19 18 Rate Blood Pressure 155/78 158/79 153/67 O2 Sat by Pulse 99 99 98 Oximetry Procedures - Laceration Laceration #1 Consent Obtained: verbal consent Indication: laceration Site: face Size (cm): 4 Description: stellate Type of Sutures: other (Dermabond to close the wound.) Medical Decision Making - Medical Decision Making EKG is interpreted by myself. EKG shows sinus rhythm at 66 bpm LA was under 64 QRS is 98 QT interval 398 QTc is 412. Patient's EKG shows no ST segment elevation or depression was pt. sent in by a medical professional or institution (SUS[facility] Briones, [employer], urgent care, hospital, or assisted...) When possible be specific @ -No Did you speak to anyone other than the patient for history (EMS, parent, family, police, friend...)? What history was obtained from this source @ -No Did you review nursing and triage notes (agree or disagree)? Why? @ -I reviewed and agree with nursing and triage notes Were old charts reviewed (outside hosp., previous admission, EMS record, old EKG, old radiological studies, urgent care reports/EKG's, assisted records)? Report findings @ -No old charts were reviewed Differential Diagnosis? @ -Fracture, cervical spine fracture, subdural, epidural, intraparenchymal hemorrhage this is not an all-inclusive list EKG interpreted by me (3pts min.). @ -As above X-rays interpreted by me (1pt min.). @ -None done CT interpreted by me (1pt min.). @ -CT of the brain shows no acute normality, CT of the C-spine shows no acute abnormality U/S interpreted by me (1pt. min.). @ -None done What testing was considered but not performed or refused? (CT, X-rays, U/S, labs)? Why? @ -None What meds were considered but not given or refused? Why? @ -None Did you discuss the management of the patient with other professionals (professionals i.e. SUSAN Briones, [employer], lab, RT, psych nurse, health care social worker, manager endoscopy, teacher, admissions officer, telehealth case manager)? Give summary @ -No Was smoking cessation discussed for >3mins.? @ -No Was critical care preformed (if so, how long)? @ -No Were there social determinants of health that impacted care today? How? (Homelessness, low income, unemployed, alcoholism, drug addiction, transportation, low edu. Level, literacy, decrease access to med. care, usp, rehab)? @ -No Was there de-escalation of care discussed even if they declined (Discuss DNR or withdrawal of care, Hospice)? DNR status @ -No What co-morbidities impacted this encounter? (DM, HTN, Smoking, COPD, CAD, C ancer, CVA, ARF, Chemo, Hep., AIDS, mental health diagnosis, sleep apnea, morbid obesity)? @ -None Was patient admitted / discharged? Hospital course, mention meds given and route, prescriptions, significant lab abnormalities, going to OR and other pertinent info. @ -Patient CAT scans were normal he did not have a headache he did not have any symptoms at this time. I glued the laceration on the side of his forehead. Undiagnosed new problem with uncertain prognosis? @ -No Drug Therapy requiring intensive monitoring for toxicity (Heparin, Nitro, Insulin, Cardizem)? @ -No Were any procedures done? @ -No Diagnosis/symptom? @ -Forehead laceration Acute, or Chronic, or Acute on Chronic? @ -Acute Uncomplicated (without systemic symptoms) or Complicated (systemic symptoms)? @ -Uncomplicated Side effects of treatment? @ -No Exacerbation, Progression, or Severe Exacerbation? @ -No Poses a threat to life or bodily function? How? (Chest pain, [place], [place], pneumonia, PE, COPD, DKA, ARF, appy, cholecystitis, CVA, Diverticulitis, Homicidal, Suicidal, threat to staff... and all critical care pts) @ -No Diagnosis/symptom? @ -Fall Acute, or Chronic, or Acute on Chronic? @ -Acute Uncomplicated (without systemic symptoms) or Complicated (systemic symptoms)? @ -Complicated Side effects of treatment? @ -None Exacerbation, Progression, or Severe Exacerbation] @ -No Poses a threat to life or bodily function? @ -No Diagnosis/symptom? @ -Head injury Acute, or Chronic, or Acute on Chronic? @ -Acute Uncomplicated (without systemic symptoms) or Complicated (systemic symptoms)? @ -Uncomplicated Side effects of treatment? @ -None Exacerbation, Progression, or Severe Exacerbation] @ -No Poses a threat to life or bodily function? @ -No Disposition Clinical Impression: Fall, Head injury, Forehead laceration Disposition: HOME SELF-CARE Instructions (If sedation given, give patient instructions): Fall Prevention for Older Adults (ED) Is patient prescribed a controlled substance at d/c from ED?: No Referrals: Mc Stewart DO [Primary Care Provider] - 1-2 days Time of Disposition: 17:53
--- NOTE | 2024-10-29 16:25 | CT ---
EXAMINATION TYPE: CT brain cspine wo con DATE OF EXAM: 10/29/2024 4:06 PM COMPARISON: None. CLINICAL INDICATION: Male, 84 years old with history of Trauma; Fall, facial trauma. Pain TECHNIQUE: Brain: Multiple axial CT images of the brain were obtained without IV contrast. Cspine: Axial CT images from the skull base to the inferior aspect of T2 we obtained without intraven ous contrast. Coronal and sagittal reformatted images were also reviewed. . CT DLP: 1415.9 mGycm, Automated exposure control for dose reduction was used. FINDINGS: Brain: Extra-axial spaces: No abnormal extra-axial fluid collections. Ventricular system: Within normal limits Cerebral parenchyma: Cerebral atrophy. No acute intraparenchymal hemorrhage or mass effect. The carter -white junction is well differentiated. Cerebellum: Unremarkable. Mass effect: No evidence of midline shift. Intracranial vasculature: Atherosclerotic calcifications of the intracranial vessels. Soft tissues: Left periorbital edema. Calvarium/osseous structures: No depressed skull fracture. Paranasal sinuses and mastoid air cells: Clear. Visualized orbits: Orbital contents are intact. Cervical spine: Fracture: None. Osseous structures: Multilevel degenerative disc disease changes with endplate spurring and disc oste ophyte complex's. Vertebral alignment: Increased catheter stenosis of the cervical spinal curvature. Spinal canal/Neural Foramina: No evidence of significant spinal canal narrowing. No evidence for sign ificant neural foraminal stenosis. Neck soft tissues: Prevertebral soft tissues are within normal limits. Other: The airway is patent. The lung apices are clear. IMPRESSION: 1. No acute intracranial process. 2. Nonspecific white matter changes, likely secondary to chronic small vessel ischemic disease. 3. No evidence of cervical spine fracture. 4. Moderate multilevel degenerative disc disease. 5. Left periorbital edema without evidence of fracture. [facility], , 10/29/2024 4:22 PM
[2024-10-29] MEDS: TOPICAL SKIN ADHESIVE 1 EACH AMP TOPICAL ONE (17:25)
[2024-10-29 18:25] VITALS: BP 148/76; PULSE 80; RESP 20
== END 2024-10-29 18:24 | disposition home or self-care (01) ==
LOC: EC 15:22 → SUPCPDRO 15:22 → EC 18:24
DX: S01.81XA Laceration without foreign body of other part of head, initial encounter (principal); Z87.891 Personal history of nicotine dependence; W01.10XA Fall on same level from slipping, tripping and stumbling with subsequent striking against unspecified object, initial encounter
CPT/HCPCS: 12013; 70450; 72125; 99284

== ENCOUNTER 2024-11-20 10:40 | Inpatient (IN) | payer MEDICARE, BC ==
[2024-11-20 12:34] LABS: Glucose,Whole Blood 92 mg/dL (70-110)
--- NOTE | 2024-11-20 12:47 | ED ---
General Adult HPI - General Chief complaint: Weakness Stated complaint: AMS Time Seen by Provider: 11/20/24 11:03 Source: patient, family, EMS, RN notes reviewed Mode of arrival: EMS Limitations: altered mental status - History of Present Illness Initial comments: 84-year-old male history of Parkinson's disease presents to the emergency department for evaluation of altered mental status. Patient's states that yesterday he was more weak than usual. He had difficulty ambulating to the bathroom. This started around 5:30 PM yesterday. She notes that he typically gets around with a walker. She notes that today he has been more sleepy. She notes that he has had frequent urination over the night and noticed today he has not urinated. She also admits to worsening productive cough. Patient has bilateral lower extremity edema. Denies any known fevers at home. - Related Data Home Medications Medication Instructions Recorded Confirmed Tamsulosin [Flomax] 0.4 mg PO HS 09/30/23 11/20/24 Carbidopa/Levodopa 2 tab PO QID 09/14/24 11/20/24 [Carbidopa/Levodopa 25-100 Tab] Fludrocortisone [Florinef] 0.1 mg PO HS 09/14/24 11/20/24 traMADol HCL 50 mg PO TID PRN 09/14/24 11/20/24 Aspirin EC [Ecotrin Low Dose] 81 mg PO DAILY 11/20/24 11/20/24 Famotidine [Pepcid] 20 mg PO BID PRN 11/20/24 11/20/24 Melatonin 3 mg PO HS PRN 11/20/24 11/20/24 Pravastatin Sodium [Pravachol] 20 mg PO DAILY 11/20/24 11/20/24 amLODIPine [Norvasc] 5 mg PO DAILY 11/20/24 11/20/24 Allergies Allergy/AdvReac Type Severity Reaction Status Date / Time No Known Allergies Allergy Verified 11/20/24 13:22 Review of Systems ROS Statement: Those systems with pertinent positive or pertinent negative responses have been documented in the HPI. ROS Other: All systems not noted in ROS Statement are negative. Past Medical History Past Medical History: Cancer, GERD/Reflux, Neurologic Disorder, Prostate Disorder Additional Past Medical History / Comment(s): See Dr Lucas's H&P. 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 Hx Skin Cancer. Numbness in feet. Back problem/pain. Parkinson's. History of Any Multi-Drug Resistant Organisms: None Reported Past Surgical History: Orthopedic Surgery Additional Past Surgical History / Comment(s): Left elbow surgery, removal basal cell cancer, MULTIPLE LYMPH NODE BIOPSIES, COLONOSCOPY, chemo port Past Anesthesia/Blood Transfusion Reactions: No Reported Reaction Past Psychological History: No Psychological Hx Reported Smoking Status: Former smoker Past Alcohol Use History: Rare Past Drug Use History: None Reported - Past Family History Brother(s) Family Medical History: Cancer Father Family Medical History: Cancer General Exam Limitations: altered mental status General appearance: alert, in no apparent distress Head exam: Present: atraumatic, normocephalic, normal inspection Eye exam: Present: normal appearance, PERRL, EOMI. Absent: scleral icterus, conjunctival injection, periorbital swelling ENT exam: Present: mucous membranes dry Neck exam: Present: normal inspection. Absent: tenderness, meningismus, lymphadenopathy Respiratory exam: Present: rhonchi. Absent: respiratory distress, wheezes, ral es, stridor Cardiovascular Exam: Present: regular rate, normal rhythm, normal heart sounds. Absent: systolic murmur, diastolic murmur, rubs, gallop, clicks GI/Abdominal exam: Present: distended (Suprapubic distention), normal bowel sounds. Absent: tenderness, guarding, rebound, rigid Extremities exam: Present: full ROM, normal capillary refill, pedal edema (Bilateral lower extremity edema). Absent: tenderness, joint swelling, calf tenderness Neurological exam: Present: alert, oriented X3 Psychiatric exam: Present: normal affect, normal mood Skin exam: Present: warm, dry, intact, normal color. Absent: rash Course Vital Signs 11/20/24 11/20/24 11/20/24 10:54 11:02 20:00 Temperature 100.3 F H 98.3 F Pulse Rate 66 Pulse Rate [ 55 L Pulse Oximetery ] Respiratory 22 18 Rate Blood Pressure 134/65 Blood Pressure 146/69 [Right Arm] O2 Sat by Pulse 91 L 96 99 Oximetry 11/21/24 11/21/24 11/21/24 00:00 02:51 08:50 Temperature 99.1 F Pulse Rate Pulse Rate [ 52 L 64 61 Pulse Oximetery ] Respiratory 8 L 12 12 Rate Blood Pressure Blood Pressure 136/60 147/67 172/81 [Right Arm] O2 Sat by Pulse 96 96 94 L Oximetry 11/21/24 14:25 Temperature 101.2 F H Pulse Rate Pulse Rate [ 60 Pulse Oximetery ] Respiratory 18 Rate Blood Pressure Blood Pressure 116/49 [Right Arm] O2 Sat by Pulse 92 L Oximetry Medical Decision Making - Medical Decision Making Was pt. sent in by a medical professional or institution (, PA, IP ARCHITECT, urgent care, hospital, or assisted...) When possible be specific @ -No Did you speak to anyone other than the patient for history (EMS, parent, family, police, friend...)? What history was obtained from this source @ -No Did you review nursing and triage notes (agree or disagree)? Why? @ -I reviewed and agree with nursing and triage notes Were old charts reviewed (outside hosp., previous admission, EMS record, old EKG, old radiological studies, urgent care reports/EKG's, assisted records)? Report findings @ -No old charts were reviewed Differential Diagnosis (chest pain, altered mental status, abdominal pain women, abdominal pain men, vaginal bleeding, weakness, fever, dyspnea, syncope, headache, dizziness, GI bleed, back pain, seizure, CVA, palpatations, mental health, musculoskeletal)? @ -Differential Altered Mental Status: Hypoglycemia, DKA, hypercapnia, ETOH, overdose, CO poisoning, trauma, myxedema coma, HTN encephalopathy, infection, encephalitis, psychosis, intercranial hemorrhage, hepatic encephalopathy, meningitis, CVA, this is not meant to be an all-inclusive list EKG interpreted by me (3pts min.). @ -EKG at 1204 shows sinus rhythm rate 65, NC 154, QRS 98, QTQTc 412/424 X-rays interpreted by me (1pt min.). @ -Chest x-ray shows bilateral airspace opacities CT interpreted by me (1pt min.). @ -CT brain shows Right middle lobe low-attenuation in the middle cranial fossa behind 70 hardening from the skull base concerning for ischemia U/S interpreted by me (1pt. min.). @ -None done What testing was considered but not performed or refused? (CT, X-rays, U/S, labs)? Why? @ -None What meds were considered but not given or refused? Why? @ -None Did you discuss the management of the patient with other professionals (professionals i.e. , PA, IP ARCHITECT, lab, RT, psych nurse, social science analyst, model and mold maker plaster, teacher, telecommunications officer, trimming caser)? Give summary @ -Management discussed with Dr. Tyler who is accepting of the admission Management discussed with Dr. Navarrete who recommended repeat CT scan tomorrow as he believes this is artifact Was smoking cessation discussed for >3mins.? @ -No Was critical care preformed (if so, how long)? @ -No Were there social determinants of health that impacted care today? How? (Homelessness, low income, unemployed, alcoholism, drug addiction, transportation, low edu. Level, literacy, decrease access to med. care, longterm, rehab)? @ -No Was there de-escalation of care discussed even if they declined (Discuss DNR or withdrawal of care, Hospice)? DNR status @ -No What co-morbidities impacted this encounter? (DM, HTN, Smoking, COPD, CAD, Cancer, CVA, ARF, Chemo, Hep., AIDS, mental health diagnosis, sleep apnea, morbid obesity)? @ -None Was patient admitted / discharged? Hospital course, mention meds given and route, prescriptions, significant lab abnormalities, going to OR and other pertinent info. @ -Admitted. Patient presented to the emergency department for evaluation of altered mental status, generalized weakness. Laboratory studies were obtained revealing no significant leukocytosis, hemoglobin 11.1. Patient mildly hypokalemic at 3.4 provided 20 mg of K-Dur. Bladder scan was performed which was greater than 600 and therefore a Michel catheter was placed. UA shows no evidence of infectious process. Chest x-ray reviewed showing airspace opacities in the lung base. Patient was started on treatment for pneumonia. A CT brain was also performed which showed right middle lobe low-attenuation in the middle cranial fossa behind some being hard pain from the skull base concerning for ischemia. Because of this, the case was discussed with Dr. Navarrete who believes that this is artifact and recommends a repeat CT tomorrow. Case was discussed with Dr. Tyler who is accepting of the admission. Case discussed with Dr. Tellez who also evaluated the patient Undiagnosed new problem with uncertain prognosis? @ -No Drug Therapy requiring intensive monitoring for toxicity (Heparin, Nitro, Insu sue, Cardizem)? @ -No Were any procedures done? @ -No Diagnosis/symptom? @ -Influenza A, pneumonia Acute, or Chronic, or Acute on Chronic? @ -Acute Uncomplicated (without systemic symptoms) or Complicated (systemic symptoms)? @ -Complicated Side effects of treatment? @ -No Exacerbation, Progression, or Severe Exacerbation? @ -No Poses a threat to life or bodily function? How? (Chest pain, USA, NM, pneumonia, PE, COPD, DKA, ARF, appy, cholecystitis, CVA, Diverticulitis, Homicidal, Suicidal, threat to staff... and all critical care pts) @ -No - Lab Data Result diagrams: 11/20/24 12:32 11/20/24 12:32 Lab Results 11/20/24 11/20/24 11/20/24 Range/Units 12:32 12:32 12:32 WBC 6.7 (3.8-10.6) k/uL RBC 3.46 L (4.30-5.90) m/uL Hgb 11.1 L (13.0-17.5) gm/dL Hct 33.4 L (39.0-53.0) % MCV 96.5 (80.0-100.0) fL MCH 32.0 (25.0-35.0) pg MCHC 33.2 (31.0-37.0) g/dL RDW 13.9 (11.5-15.5) % Plt Count 234 (150-450) k/uL MPV 7.4 Neutrophils % 80 % Lymphocytes % 10 % Monocytes % 6 % Eosinophils % 1 % Basophils % 1 % Neutrophils # 5.4 (1.3-7.7) k/uL Lymphocytes # 0.7 L (1.0-4.8) k/uL Monocytes # 0.4 (0-1.0) k/uL Eosinophils # 0.0 (0-0.7) k/uL Basophils # 0.0 (0-0.2) k/uL PT 11.0 (10.0-12.5) sec INR 1.0 (<1.2) APTT 21.9 L (22.0-30.0) sec Sodium 135 L (137-145) mmol/L Potassium 3.4 L (3.5-5.1) mmol/L Chloride 100 (98-107) mmol/L Carbon Dioxide 29 (22-30) mmol/L Anion Gap 6 mmol/L BUN 21 H (9-20) mg/dL Creatinine 0.92 (0.66-1.25) mg/dL Est GFR (CKD-EPI)AfAm 88 (>60 ml/min/1.73 sqM) Est GFR (CKD-EPI)NonAf 76 (>60 ml/min/1.73 sqM) Glucose 83 (74-99) mg/dL POC Glucose (mg/dL) (70-110) mg/dL POC Glu Insurance Verify Rep ID Plasma Lactic Acid Adan (0.7-2.0) mmol/L Calcium 8.6 (8.4-10.2) mg/dL Total Bilirubin 0.4 (0.2-1.3) mg/dL AST 27 (17-59) U/L ALT 6 (4-49) U/L Alkaline Phosphatase 69 (38-126) U/L Troponin I (0.000-0.034) ng/mL Total Protein 5.3 L (6.3-8.2) g/dL Albumin 3.3 L (3.5-5.0) g/dL Urine Color Urine Appearance (Clear) Urine pH (5.0-8.0) Ur Specific Preble (1.001-1.035) Urine Protein (Negative) Urine Glucose (UA) (Negative) Urine Ketones (Negative) Urine Blood (Negative) Urine Nitrite (Negative) Urine Bilirubin (Negative) Urine Urobilinogen (<2.0) mg/dL Ur Leukocyte Esterase (Negative) Influenza Type A (PCR) (Not Detectd) Influenza Type B (PCR) (Not Detectd) Urine Legionella Ag (Negative) RSV (PCR) (Not Detectd) SARS-CoV-2 (PCR) (Not Detectd) 11/20/24 11/20/24 11/20/24 Range/Units 12:32 12:33 13:12 WBC (3.8-10.6) k/uL RBC (4.30-5.90) m/uL Hgb (13.0-17.5) gm/dL Hct (39.0-53.0) % MCV (80.0-100.0) fL MCH (25.0-35.0) pg MCHC (31.0-37.0) g/dL RDW (11.5-15.5) % Plt Count (150-450) k/uL MPV Neutrophils % % Lymphocytes % % Monocytes % % Eosinophils % % Basophils % % Neutrophils # (1.3-7.7) k/uL Lymphocytes # (1.0-4.8) k/uL Monocytes # (0-1.0) k/uL Eosinophils # (0-0.7) k/uL Basophils # (0-0.2) k/uL PT (10.0-12.5) sec INR (<1.2) APTT (22.0-30.0) sec Sodium (137-145) mmol/L Potassium (3.5-5.1) mmol/L Chloride (98-107) mmol/L Carbon Dioxide (22-30) mmol/L Anion Gap mmol/L BUN (9-20) mg/dL Creatinine (0.66-1.25) mg/dL Est GFR (CKD-EPI)AfAm (>60 ml/min/1.73 sqM) Est GFR (CKD-EPI)NonAf (>60 ml/min/1.73 sqM) Glucose (74-99) mg/dL POC Glucose (mg/dL) 92 (70-110) mg/dL POC Glu Insurance Verify Rep ID Thomas Aleman Plasma Lactic Acid Adan (0.7-2.0) mmol/L Calcium (8.4-10.2) mg/dL Total Bilirubin (0.2-1.3) mg/dL AST (17-59) U/L ALT (4-49) U/L Alkaline Phosphatase (38-126) U/L Troponin I 0.028 (0.000-0.034) ng/mL Total Protein (6.3-8.2) g/dL Albumin (3.5-5.0) g/dL Urine Color Colorless Urine Appearance Clear (Clear) Urine pH 6.0 (5.0-8.0) Ur Specific Preble 1.013 (1.001-1.035) Urine Protein Negative (Negative) Urine Glucose (UA) Negative (Negative) Urine Ketones Negative (Negative) Urine Blood Negative (Negative) Urine Nitrite Negative (Negative) Urine Bilirubin Negative (Negative) Urine Urobilinogen <2.0 (<2.0) mg/dL Ur Leukocyte Esterase Negative (Negative) Influenza Type A (PCR) (Not Detectd) Influenza Type B (PCR) (Not Detectd) Urine Legionella Ag (Negative) RSV (PCR) (Not Detectd) SARS-CoV-2 (PCR) (Not Detectd) 11/20/24 11/20/24 11/20/24 Range/Units 13:12 14:20 15:36 WBC (3.8-10.6) k/uL RBC (4.30-5.90) m/uL Hgb (13.0-17.5) gm/dL Hct (39.0-53.0) % MCV (80.0-100.0) fL MCH (25.0-35.0) pg MCHC (31.0-37.0) g/dL RDW (11.5-15.5) % Plt Count (150-450) k/uL MPV Neutrophils % % Lymphocytes % % Monocytes % % Eosinophils % % Basophils % % Neutrophils # (1.3-7.7) k/uL Lymphocytes # (1.0-4.8) k/uL Monocytes # (0-1.0) k/uL Eosinophils # (0-0.7) k/uL Basophils # (0-0.2) k/uL PT (10.0-12.5) sec INR (<1.2) APTT (22.0-30.0) sec Sodium (137-145) mmol/L Potassium (3.5-5.1) mmol/L Chloride (98-107) mmol/L Carbon Dioxide (22-30) mmol/L Anion Gap mmol/L BUN (9-20) mg/dL Creatinine (0.66-1.25) mg/dL Est GFR (CKD-EPI)AfAm (>60 ml/min/1.73 sqM) Est GFR (CKD-EPI)NonAf (>60 ml/min/1.73 sqM) Glucose (74-99) mg/dL POC Glucose (mg/dL) (70-110) mg/dL POC Glu Insurance Verify Rep ID Plasma Lactic Acid Adan 0.9 (0.7-2.0) mmol/L Calcium (8.4-10.2) mg/dL Total Bilirubin (0.2-1.3) mg/dL AST (17-59) U/L ALT (4-49) U/L Alkaline Phosphatase (38-126) U/L Troponin I (0.000-0.034) ng/mL Total Protein (6.3-8.2) g/dL Albumin (3.5-5.0) g/dL Urine Color Urine Appearance (Clear) Urine pH (5.0-8.0) Ur Specific Preble (1.001-1.035) Urine Protein (Negative) Urine Glucose (UA) (Negative) Urine Ketones (Negative) Urine Blood (Negative) Urine Nitrite (Negative) Urine Bilirubin (Negative) Urine Urobilinogen (<2.0) mg/dL Ur Leukocyte Esterase (Negative) Influenza Type A (PCR) Detected A (Not Detectd) Influenza Type B (PCR) Not Detected (Not Detectd) Urine Legionella Ag Negative (Negative) RSV (PCR) Not Detected (Not Detectd) SARS-CoV-2 (PCR) Not Detected (Not Detectd) Disposition Clinical Impression: Pneumonia, Influenza A, Altered mental status Disposition: ADMITTED IP TO THIS [facility] Condition: Stable Is patient prescribed a controlled substance at d/c from ED?: No
[2024-11-20 12:51] LABS: Basophils % (A) 1 %; Eosinophils % (A) 1 %; HCT 33.4 % (39.0-53.0); HGB 11.1 gm/dL (13.0-17.5); Lymphocytes # (A) 0.7 k/uL (1.0-4.8); Lymphocytes % (A) 10 %; MCHC 33.2 g/dL (31.0-37.0); MCV 96.5 fL (80.0-100.0); Mean Platelet Volume 7.4; Monocytes # (A) 0.4 k/uL (0-1.0); Monocytes % (A) 6 %; Neutrophils # (A) 5.4 k/uL (1.3-7.7); Neutrophils % (A) 80 %; Platelet Count 234 k/uL (150-450); RBC 3.46 m/uL (4.30-5.90); RDW 13.9 % (11.5-15.5); WBC 6.7 k/uL (3.8-10.6)
[2024-11-20 13:08] LABS: ALT 6 U/L (4-49); AST 27 U/L (17-59); African American GFR (CKD) 88 (>60 ml/min/1.73 sqM); Albumin 3.3 g/dL (3.5-5.0); Alkaline Phosphatase 69 U/L (38-126); Anion Gap 6 mmol/L; Blood Urea Nitrogen 21 mg/dL (9-20); Calcium 8.6 mg/dL (8.4-10.2); Carbon Dioxide 29 mmol/L (22-30); Chloride 100 mmol/L (98-107); Glucose 83 mg/dL (74-99); Non-African American GFR(CKD) 76 (>60 ml/min/1.73 sqM); Potassium 3.4 mmol/L (3.5-5.1); Sodium 135 mmol/L (137-145); Total Bilirubin 0.4 mg/dL (0.2-1.3); Total Protein 5.3 g/dL (6.3-8.2)
[2024-11-20 13:10] LABS: Partial Thromboplastin Time 21.9 sec (22.0-30.0)
[2024-11-20 13:34] LABS: Appearance,Urine Clear (Clear); Bilirubin,Urine Negative (Negative); Blood,Urine Negative (Negative); Color,Urine Colorless; Glucose,Urine (UA) Negative (Negative); Ketones,Urine Negative (Negative); Leukocyte Esterase,Urine Negative (Negative); Nitrite,Urine Negative (Negative); Protein,Urine Negative (Negative); Specific Gravity,Urine 1.013 (1.001-1.035); Urobilinogen,Urine <2.0 mg/dL (<2.0)
--- NOTE | 2024-11-20 14:07 | XR ---
EXAMINATION TYPE: XR chest 2V DATE OF EXAM: 11/20/2024 1:34 PM COMPARISON: Chest radiographs from 09/14/2024 CLINICAL INDICATION: Male, 84 years old with history of altered mental status; [facility] TECHNIQUE: XR chest 2V Frontal and lateral views of the chest. FINDINGS: Lungs/Pleura: Airspace opacities projecting over the spine on lateral view. There is no evidence of p leural effusion, focal consolidation, or pneumothorax. Pulmonary vascularity: Unremarkable. Heart/mediastinum: Cardiomediastinal silhouette is unremarkable. Musculoskeletal: No acute osseous pathology. IMPRESSION: Airspace opacities near the lung base projecting over the spine correlate for pneumonia [facility], , 11/20/2024 2:05 PM
--- NOTE | 2024-11-20 14:21 | CT ---
EXAMINATION TYPE: CT brain wo con DATE OF EXAM: 11/20/2024 1:48 PM COMPARISON: 10/29/2024. CLINICAL INDICATION: Male, 84 years old with history of Altered mental status, WEAKNESS, AMS TECHNIQUE: Brain: Axial CT images of the brain were obtained with coronal and sagittal reformats created and rev iewed. Contrast used: None. Oral contrast used: None. CT DLP: 1302.4 mGycm, Automated exposure control for dose reduction was used. FINDINGS: Brain: Extra-axial spaces: No abnormal extra-axial fluid collections. Ventricular system: Within normal limits Cerebral parenchyma: Cerebral atrophy. Lower attenuation within the right middle lobe in the middle c ranial fossa new from 10/29/2024. No acute intraparenchymal hemorrhage or mass effect. The remainder of the carter-white junctions are well differentiated. Scattered hypoattenuating areas are seen within the white matter. Cerebellum: Unremarkable. Mass effect: No evidence of midline shift. Intracranial vasculature: unremarkable Soft tissues: Normal. Calvarium/osseous structures: No depressed skull fracture. Paranasal sinuses and mastoid air cells: Mild scattered paranasal sinus disease. Visualized orbits: Bilateral aphakia IMPRESSION: 1. Right middle lobe low-attenuation in the middle cranial fossa which is in behind some beam hardeni ng from the skull base findings concerning for ischemia. MRI recommended. For clarity. 2. Nonspecific white matter changes, likely secondary to chronic small vessel ischemic disease. [facility], , 11/20/2024 2:19 PM
[2024-11-20] MEDS: ACETAMINOPHEN TAB 500 MG TAB PO STA (14:24)
[2024-11-20] MEDS ORDERED: PNEUMONIA PROTOCOL UTILIZED 1 EACH MISC PO PRN (14:25)
[2024-11-20] MEDS ORDERED: NALOXONE 0.4 MG/ML 1 ML VIAL IV PRN (14:59)
[2024-11-20] MEDS: AZITHROMYCIN 500 MG in SODIUM CHLORIDE 0.9% 250 ML IVPB STA (15:43)
[2024-11-20] MEDS: ASPIRIN 325 MG TAB PO STA (15:50)
[2024-11-20] MEDS: OSELTAMIVIR 75 MG CAP PO STA (20:41)
[2024-11-21] MEDS: AZITHROMYCIN 500 MG TAB PO SCH (09:01)
[2024-11-21] MEDS ORDERED: FAMOTIDINE 20 MG TAB PO PRN (10:13)
[2024-11-21] MEDS ORDERED: amLODIPine 5 MG TAB PO SCH (10:15)
--- NOTE | 2024-11-21 11:51 | XR ---
EXAMINATION TYPE: XR chest 1V DATE OF EXAM: 11/21/2024 11:17 AM COMPARISON: Chest radiograph from one day prior. CLINICAL INDICATION: Male, 84 years old with history of pneumonia; [facility] TECHNIQUE: XR chest 1V Frontal view of the chest. FINDINGS: Lungs/Pleura: No lateral view to correlate/compare prior. There is flattening of the diaphragm with i ncreased lucency of the lungs. No evidence of pneumothorax, pleural effusion or focal consolidation. Pulmonary vascularity: Unremarkable. Heart/mediastinum: Cardiomediastinal silhouette is unremarkable. Musculoskeletal: No acute osseous pathology. Other findings: None Lines/Tubes: IMPRESSION: No lateral view to compare airspace opacities. Clinical correlation. COPD changes. [facility], , 11/21/2024 11:49 AM
[2024-11-21] MEDS: CARBIDOPA-LEVODOPA 25-100 MG 1 EACH TAB PO SCH (12:25)
[2024-11-21] MEDS: PRAVASTATIN SODIUM 20 MG TAB PO SCH (12:25)
[2024-11-21] MEDS: ASPIRIN 81 MG PO SCH (12:25)
--- NOTE | 2024-11-21 16:44 | P.HPIM ---
History of Present Illness H&P Date: 11/21/24 History of present illness: 84-year-old male patient with past medically significant for Parkinson disease, history of mantle cell lymphoma, neuropathy, GERD who presented to ER for the evaluation of altered mental status and generalized weakness. Patient's at the bedside reported that patient was more weak than usual yesterday, was unable to get out of the toilet yesterday, this started around 5:30 PM yesterday. Patient's reported that he usually walks around with a walker, but he was more sleepy for past 1 day, was having frequent urination, also noted to have productive cough and lower extremity edema. Did not report any fever or chills, complained of shortness of breath and productive cough, denied any chest pain, palpitation, nausea vomiting diarrhea constipation abdominal pain dysuria urgency. In the ED patient was afebrile, heart rate 55, respiratory rate 18, blood pre ssure 146/69, saturating 99% on 2 L. WBC 6.7, hemoglobin 11.1, platelet 234. INR 1.0. BMP was unremarkable, mildly low potassium 3.4. CT head showed right middle lobe low-attenuation in the middle cranial fossa which could be artifact versus ischemia, MRI recommended. Chest x-ray showed airspace opacities near the lung base projecting over the spine correlate for pneumonia. REVIEW OF SYSTEMS: CONSTITUTIONAL: No fever, malaise, fatigue. HEENT: No recent visual problems or hearing problems. Denied any sore throat. CARDIOVASCULAR: No chest pain, orthopnea, PND, no palpitations, no syncope. PULMONARY: Complains of shortness of breath and productive cough. GASTROINTESTINAL: No diarrhea, no nausea, no vomiting, no abdominal pain. NEUROLOGICAL: No headaches, no weakness, no numbness. HEMATOLOGICAL: Denies any bleeding or petechiae. GENITOURINARY: Denies any burning micturition, frequency, or urgency. MUSCULOSKELETAL/RHEUMATOLOGICAL: Denies any joint pain, swelling, or any muscle pain. ENDOCRINE: Denies any polyuria or polydipsia. The rest of the 14-point review of systems is negative. PHYSICAL EXAMINATION: GENERAL: The patient is A&O x3, NAD HEENT: EOMI, Sclerae anicteric, Moist Mucous membranes Neck: Supple, Non tender, No JVD PULMONARY: Equal breath souds B/L, No wheezing, + crackles. CARDIOVASCULAR: S1, S2 present. No murmurs, rubs, or gallops. ABDOMEN: Soft, nontender, nondistended, normoactive bowel sounds. No guarding or rebound tenderness. MUSCULOSKELETAL: +edema, No cyanosis. No clubbing. Normal ROM. Intact peripheral pulses. NEUROLOGICAL: CN 2-12 grossly intact. No FND Assessment and plan: Bacterial pneumonia: Influenza A: Generalized weakness: Brought in for generalized weakness, worsening, unable to ambulate. Chest x-ray showed airspace opacities at the lung base. Complaining of productive cough and shortness of breath. Started Tamiflu Antibiotics Rocephin azithromycin Infectious disease consult PT/OT consult Parkinson disease: Resume home meds Abnormal CT head: CT head concerning for artifact versus ischemia No focal neurological deficits Monitor with neurochecks aspirin, statin. Neurology consulted. DVT prophylaxis Lovenox s/c Monitor vital signs and labs Labs and medication were reviewed. Continue same treatment. Further recommendations as per clinical course of the patient Dictation was produced using [employer] dictation software. please excuse any grammatical, word or spelling errors. Past Medical History Past Medical History: Cancer, GERD/Reflux, Neurologic Disorder, Prostate Disorder Additional Past Medical History / Comment(s): See Dr Lucas's H&P. 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 Hx Skin Cancer. Numbness in feet. Back problem/pain. Parkinson's. History of Any Multi-Drug Resistant Organisms: None Reported Past Surgical History: Orthopedic Surgery Additional Past Surgical History / Comment(s): Left elbow surgery, removal basal cell cancer, MULTIPLE LYMPH NODE BIOPSIES, COLONOSCOPY, chemo port Past Anesthesia/Blood Transfusion Reactions: No Reported Reaction Past Psychological History: No Psychological Hx Reported Smoking Status: Former smoker Past Alcohol Use History: Rare Additional Past Alcohol Use History / Comment(s): SMOKED FROM AGE [age], 1 PPD OR LESS. Past Drug Use History: None Reported - Past Family History Brother(s) Family Medical History: Cancer Father Family Medical History: Cancer Medications and Allergies Home Medications Medication Instructions Recorded Confirmed Type Tamsulosin [Flomax] 0.4 mg PO HS 09/30/23 11/20/24 History Carbidopa/Levodopa 2 tab PO QID 09/14/24 11/20/24 History [Carbidopa/Levodopa 25-100 Tab] Fludrocortisone [Florinef] 0.1 mg PO HS 09/14/24 11/20/24 History traMADol HCL 50 mg PO TID PRN 09/14/24 11/20/24 History Aspirin EC [Ecotrin Low Dose] 81 mg PO DAILY 11/20/24 11/20/24 History Famotidine [Pepcid] 20 mg PO BID PRN 11/20/24 11/20/24 History Melatonin 3 mg PO HS PRN 11/20/24 11/20/24 History Pravastatin Sodium [Pravachol] 20 mg PO DAILY 11/20/24 11/20/24 History amLODIPine [Norvasc] 5 mg PO DAILY 11/20/24 11/20/24 History Allergies Allergy/AdvReac Type Severity Reaction Status Date / Time No Known Allergies Allergy Verified 11/20/24 13:22 Physical Exam Vitals: Vital Signs Temp Pulse Resp BP Pulse Ox 11/21/24 16:35 92 L 11/21/24 14:25 101.2 F H 60 18 116/49 92 L 11/21/24 08:50 99.1 F 61 12 172/81 94 L 11/21/24 02:51 64 12 147/67 96 11/21/24 00:00 52 L 8 L 136/60 96 11/20/24 20:00 98.3 F 55 L 18 146/69 99 Intake and Output 11/21/24 11/21/24 11/21/24 06:59 14:59 22:59 Output Total 650 650 Balance -650 -650 Output: Urine 650 650 Other: Voiding Method Indwelling Catheter # Bowel Movements 1 1 Weight 81.647 kg Results CBC & Chem 7: 11/20/24 12:32 11/20/24 12:32 Thrombosis Risk Factor Assmnt - Choose All That Apply Any of the Below Risk Factors Present?: No Other Risk Factors: No Thrombosis Risk Factor Assessment Level: Very Low Risk
[2024-11-21 17:31] LABS: Glucose,Whole Blood 88 mg/dL (70-110)
--- NOTE | 2024-11-21 17:53 | CT ---
EXAMINATION TYPE: CT brain wo con DATE OF EXAM: 11/21/2024 5:29 PM COMPARISON: 11/12/2024. CLINICAL INDICATION: Male, 84 years old with history of Follow up right temp lesion ?Artifact vs real , Follow up right temp lesion ?Artifact vs real. Pt unable to lay head flat. TECHNIQUE: Brain: Axial CT images of the brain were obtained with coronal and sagittal reformats created and rev iewed. Contrast used: None. Oral contrast used: None. CT DLP: 1192.4 mGycm, Automated exposure control for dose reduction was used. FINDINGS: Brain: Extra-axial spaces: No abnormal extra-axial fluid collections. Ventricular system: Dilatation in proportion to cerebral atrophy. Cerebral parenchyma: Similar decreased attenuation of the right middle lobe compared to the left in t he right middle cranial fossa. Cerebral atrophy present. No acute intraparenchymal hemorrhage or mass effect. The carter-white junction is well differentiated. Scattered hypoattenuating areas are seen wi thin the white matter. Cerebellum: Unremarkable. Mass effect: No evidence of midline shift. Intracranial vasculature: unremarkable Soft tissues: Normal. Calvarium/osseous structures: No depressed skull fracture. Paranasal sinuses and mastoid air cells: Mild scattered paranasal sinus disease. Visualized orbits: Orbital contents are intact. IMPRESSION: 1. Similar decreased attenuation of the right middle lobe compared to the left in the right middle c ranial fossa. This is possibly relating to artifact versus encephalomalacia versus less likely ischem ia given absence of swelling of the right temporal lobe.. 2. Nonspecific white matter changes. [facility], , 11/21/2024 5:51 PM
[2024-11-21] MEDS: ACETAMINOPHEN TAB 325 MG TAB PO PRN (18:03)
[2024-11-21] MEDS: OSELTAMIVIR 75 MG CAP PO SCH (18:03)
--- NOTE | 2024-11-21 21:19 | P.CNNES ---
History of Present Illness Consult date: 11/21/24 Requesting physician: Reanna Hunt Reason for Consult: abn ct brain History of Present Illness: Patient is a 84-year-old male came to the hospital by ambulance yesterday at 10:40 AM for generalized weakness. Patient's was also present and both of them provided with a history. On Friday, 2 days ago, after dinner, patient went to the toilet at 5:30 PM and could not get up. He required help. His helped him sit in the wheelchair and the stayed there for about 3 hours. He was very sluggish. He slept all night long, and when he woke up, he could not get out of bed, he was sleepy, dopey, not responding. Therefore they called the ambulance and he was brought to the hospital. He usually walks with walker at home, but outside uses a wheelchair. Patient does have a history of Parkinson's and follows up with Dr. Esquivel. He has Parkinson's for about 8 years. As per EMS flowsheet, they were called for altered level of consciousness. On arrival patient was sitting, slumped forward in a wheelchair. Patient has a blanket tied around his waist to hold him up. Family mentioned that patient had severe weakness since last p.m. Patient is unable to ambulate. They also mention the patient is very lethargic and unable to stay awake. Patient has history of advanced Parkinson's disease, and he is confused. Family mentioned that today the confusion is worse than normal. He is alert and orient x 1. Skin is warm, pale and dry. Patient has edema to the lower extremities from knees to the feet. Patient is not willing to eat or drink anything. No hematuria or melena. No shortness of breath. Patient does keep falling asleep. Patient's temperature was 100.4. Patient's blood pressure 132/70, pulse rate 67 saturation 92%. Blood sugar 113. Blood test shows normal WBC hemoglobin 11.1, normal platelets. PT PTT normal, sodium 135 potassium 3.4, normal renal functions. Hepatic panel is normal, UA negative, influenza A positive. Urine Legionella, RSV and coronavirus PCR negative. Troponin negative. EKG showed sinus rhythm. Chest x-ray showed no acute process. Some COPD changes. CT head revealed right middle lobe low- attenuation in the middle cranial fossa, which is seen behind some beam hardening from the skull base, findings concerning for ischemia. MRI recommended for clarity. Nonspecific white matter changes, likely secondary to chronic small vessel ischemic disease. I personally reviewed CT head, and appears artifactual in nature. Review of Systems All pertinent positive and negative mentioned in the HPI. Past Medical History Past Medical History: Cancer, GERD/Reflux, Neurologic Disorder, Prostate Disorder Additional Past Medical History / Comment(s): See Dr Lucas's H&P. 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 Hx Skin Cancer. Numbness in feet. Back problem/pain. Parkinson's. History of Any Multi-Drug Resistant Organisms: None Reported Past Surgical History: Orthopedic Surgery Additional Past Surgical History / Comment(s): Left elbow surgery, removal basal cell cancer, MULTIPLE LYMPH NODE BIOPSIES, COLONOSCOPY, chemo port Past Anesthesia/Blood Transfusion Reactions: No Reported Reaction Past Psychological History: No Psychological Hx Reported Smoking Status: Former smoker Past Alcohol Use History: Rare Additional Past Alcohol Use History / Comment(s): SMOKED FROM AGE [age], 1 PPD OR LESS. Past Drug Use History: None Reported - Past Family History Brother(s) Family Medical History: Cancer Father Family Medical History: Cancer Medications and Allergies Home Medications Medication Instructions Recorded Confirmed Type Tamsulosin [Flomax] 0.4 mg PO HS 09/30/23 11/20/24 History Carbidopa/Levodopa 2 tab PO QID 09/14/24 11/20/24 History [Carbidopa/Levodopa 25-100 Tab] Fludrocortisone [Florinef] 0.1 mg PO HS 09/14/24 11/20/24 History traMADol HCL 50 mg PO TID PRN 09/14/24 11/20/24 History Aspirin EC [Ecotrin Low Dose] 81 mg PO DAILY 11/20/24 11/20/24 History Famotidine [Pepcid] 20 mg PO BID PRN 11/20/24 11/20/24 History Melatonin 3 mg PO HS PRN 11/20/24 11/20/24 History Pravastatin Sodium [Pravachol] 20 mg PO DAILY 11/20/24 11/20/24 History amLODIPine [Norvasc] 5 mg PO DAILY 11/20/24 11/20/24 History Allergies Allergy/AdvReac Type Severity Reaction Status Date / Time No Known Allergies Allergy Verified 11/20/24 13:22 Physical Examination - Vital Signs Vital Signs: Vital Signs Temp Pulse Resp BP Pulse Ox 11/21/24 14:25 101.2 F H 60 18 116/49 92 L 11/21/24 08:50 99.1 F 61 12 172/81 94 L 11/21/24 02:51 64 12 147/67 96 11/21/24 00:00 52 L 8 L 136/60 96 11/20/24 20:00 98.3 F 55 L 18 146/69 99 Intake and Output 11/21/24 11/21/24 11/21/24 06:59 14:59 22:59 Output Total 650 650 Balance -650 -650 Output: Urine 650 650 Other: Voiding Method Indwelling Catheter # Bowel Movements 1 1 Weight 81.647 kg Patient is an elderly male, very pleasant, in no acute distress. Patient is alert awake oriented to time place and person. Patient knows it is October and the year is 2023 and that he is in [facility] in [place], although he thinks he is in [facility]. He knows that he lives in [place] in [place]. He knows name of the current president Mr. Del Cid. Speech and language functions are normal. Patient can name and repeat very well. No aphasia or dysarthria. Attention, concentration and fund of knowledge is adequate. On cranial nerve examination, pupils are equal, round and reacting to light, visual guillory are full on confrontation, with no neglect on double simultaneous stimulation. Extraocular muscles are intact with no nystagmus. Face is symmetric, tongue protrudes to the midline. Palatal elevation and sensation normal, hearing and shoulder shrug normal, facial sensation normal. On muscle strength testing, there is no pronator drift and the strength is normal in arms and legs distally and proximally. Deep tendon reflexes are symmetric but hypoactive and plantars are flat. Sensory to touch is equal with no neglect on double simultaneous stimulation. Cerebellar function showed no ataxia for [id number] testing. No dysdiadochokinesia. No ataxia for onvo-[id number]-wkzm testing on either side. Tone is increased in the lower extremities, but normal in the upper extremities and bulk of muscles normal. No tremors at rest noted. He appears slightly bradykinetic. Gait deferred.. On general examination, there is no carotid bruit or murmur, S1-S2 audible. Chest is clear on consultation. Abdomen is soft nontender. No organomegaly, bowel sounds present. Peripheral pulses are present. No peripheral edema. Results - Laboratory Findings CBC and BMP: 11/20/24 12:32 11/20/24 12:32 Abnormal Lab Findings: Abnormal Labs 11/20/24 11/20/24 11/20/24 12:32 12:32 12:32 RBC 3.46 L Hgb 11.1 L Hct 33.4 L Lymphocytes # 0.7 L APTT 21.9 L Sodium 135 L Potassium 3.4 L BUN 21 H Total Protein 5.3 L Albumin 3.3 L Influenza Type A (PCR) 11/20/24 14:20 RBC Hgb Hct Lymphocytes # APTT Sodium Potassium BUN Total Protein Albumin Influenza Type A (PCR) Detected A Assessment and Plan Assessment: * Generalized weakness, due to acute febrile illness. Patient has been diagnosed with influenza A pneumonia. * Acute influenza A * Parkinson's disease * Abnormal CT head revealed low-attenuation in the middle cranial fossa which is behind some beam hardening from the skull base finding, concerning for ischemia. On my examination, appears somewhat artifactual in nature. Patient denies any focal symptoms. His examination is completely nonfocal. Plan: * Repeat CT head to evaluate for any persistent abnormality in the right middle cranial fossa. * Continue aspirin. * Patient currently on ceftriaxone and azithromycin. * DVT prophylaxis: Patient on Lovenox 40 mg subcu daily. * Dr. Raj Damon to resume neurology service in the morning. * Thank you for the consult.
[2024-11-21] MEDS: FLUDROCORTISONE 0.1 MG TAB PO SCH (23:00)
[2024-11-21] MEDS: TAMSULOSIN 0.4 MG CAP.ER.24H PO SCH (23:01)
[2024-11-22] MEDS: ENOXAPARIN 40 MG/0.4 ML SYRINGE SQ SCH (09:12)
[2024-11-22] MEDS: amLODIPine 5 MG TAB PO SCH (09:12)
--- NOTE | 2024-11-22 15:29 | P.PN ---
Subjective Progress Note Date: 11/22/24 Interval History: 84-year-old male patient with past medically significant for Parkinson disease, history of mantle cell lymphoma, neuropathy, GERD who presented to ER for the evaluation of altered mental status and generalized weakness. Patient's at the bedside reported that patient was more weak than usual yesterday, was unable to get out of the toilet yesterday, this started around 5:30 PM yesterday. Patient's reported that he usually walks around with a walker, but he was more sleepy for past 1 day, was having frequent urination, also noted to have productive cough and lower extremity edema. Did not report any fever or chills, complained of shortness of breath and productive cough, denied any chest pain, palpitation, nausea vomiting diarrhea constipation abdominal pain dysuria u rgency. In the ED patient was afebrile, heart rate 55, respiratory rate 18, blood pressure 146/69, saturating 99% on 2 L. WBC 6.7, hemoglobin 11.1, platelet 234. INR 1.0. BMP was unremarkable, mildly low potassium 3.4. CT head showed right middle lobe low-attenuation in the middle cranial fossa wh ich could be artifact versus ischemia, MRI recommended. Chest x-ray showed airspace opacities near the lung base projecting over the spine correlate for pneumonia. 11/22--patient was seen and examined today. at bedside, afebrile, heart rate 59, respiratory rate 15, blood pressure 131/61, saturating 97% on room air. Repeat CT head yesterday showed similar appearance, MRI head ordered per ne urology. Currently on Rocephin. PT/OT consulted. Assessment and plan: Bacterial pneumonia: Influenza A: Generalized weakness: Brought in for generalized weakness, worsening, unable to ambulate. Chest x-ray showed airspace opacities at the lung base. Complaining of productive cough and shortness of breath. Started Tamiflu Antibiotics Rocephin Infectious disease consulted PT/OT consult Parkinson disease: Resume home meds Abnormal CT head: CT head concerning for artifact versus ischemia No focal neurological deficits Monitor with neurochecks aspirin, statin. Neurology consulted--recommended repeat CT head--similar decreased attenuation in the right middle lobe, MRI head ordered. Disposition: PT/OT consult DVT prophylaxis Lovenox s/c Monitor vital signs and labs Labs and medication were reviewed. Continue same treatment. Further recommendations as per clinical course of the patient PHYSICAL EXAMINATION: GENERAL: The patient is A&O x3, NAD HEENT: EOMI, Sclerae anicteric, Moist Mucous membranes Neck: Supple, Non tender, No JVD PULMONARY: Equal breath souds B/L, No wheezing, No crackles. CARDIOVASCULAR: S1, S2 present. No murmurs, rubs, or gallops. ABDOMEN: Soft, nontender, nondistended, normoactive bowel sounds. No guarding or rebound tenderness. MUSCULOSKELETAL: No edema, No cyanosis. No clubbing. Normal ROM. Intact peripheral pulses. NEUROLOGICAL: CN 2-12 grossly intact. No FND Skin: No Rash REVIEW OF SYSTEMS: CONSTITUTIONAL: No fever or chills. CARDIOVASCULAR: No chest pain, palpitations or syncope. PULMONARY: No shortness of breath, no cough, sore throat. GASTROINTESTINAL: No nausea, vomiting, diarrhea, abdominal pain. : No Dysuria, urgency, frequency. Extremities: No edema. NEUROLOGICAL: No headaches, no weakness, or numbness Dictation was produced using [employer] dictation software. please excuse any grammatical, word or spelling errors. Objective - Vital Signs Vital signs: Vital Signs Temp 97.9 F 11/22/24 13:44 Pulse 59 L 11/22/24 13:44 Resp 15 11/22/24 13:44 BP 131/61 11/22/24 13:44 Pulse Ox 97 11/22/24 13:44 FiO2 Intake & Output 11/21/24 11/22/24 11/22/24 18:59 06:59 18:59 Intake Total 540 Output Total 975 550 Balance -975 -10 Weight 81.647 kg Intake: Oral 540 Output: Urine 975 550 Other: Voiding Method Indwelling Catheter Indwelling Catheter # Bowel Movements 1 1 - Labs CBC & Chem 7: 11/20/24 12:32 11/20/24 12:32 Labs: Microbiology - Last 24 Hours (Table) 11/20/24 15:22 Blood Culture - Preliminary Blood
[2024-11-22] MEDS: MELATONIN 3 MG TABLET PO PRN (20:27)
--- NOTE | 2024-11-22 23:00 | P.CONS ---
History of Present Illness - Reason for Consult Consult date: 11/22/24 Flu, fever Requesting physician: Diego Sparks - Chief Complaint Weakness x 1 day - History of Present Illness Patient is a 84-year-old male with a past medical history significant for reflux mantle cell lymphoma prostate disorder and chronic back pain presenti ng to the hospital for evaluation of mental status changes patient was noticed to be weaker than usual and did have difficulty ambulation to the bathroom symptom has been going on for about a day before presentation to the hospital the patient denies any headache he did have URI symptoms some sore throat he also have a cough which is mild to moderate intensity not bring up any sputum denies any nausea no vomiting no abdominal pain vomiting diarrhea on presentation to the hospital he did have low-grade fever 100.3 degrees for hide subsequently spiked a temperature of 101.2 degrees following right patient has been bradycardia arrhythmic endpoints but not hypotensive or hypoxic and no need for supplemental oxygen patient did have a white count of 6.7 with no left shift creatinine 0.92 liver isms are normal urine has been negative , patient tested positive for influenza A patient did have chest x-ray no evidence of any pneumonia patient has been started on Tamiflu Rocephin and Zithromax infectious disease was consulted regarding fluid fever Review of Systems Positive point and negatives has been mentioned in the HPI, complete review of systems was performed and all other systems are negative Past Medical History Past Medical History: Cancer, GERD/Reflux, Neurologic Disorder, Prostate Disorder Additional Past Medical History / Comment(s): See Dr Lucas's H&P. 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 Hx Skin Cancer. Numbness in feet. Back problem/pain. Parkinson's. History of Any Multi-Drug Resistant Organisms: None Reported Past Surgical History: Orthopedic Surgery Additional Past Surgical History / Comment(s): Left elbow surgery, removal basal cell cancer, MULTIPLE LYMPH NODE BIOPSIES, COLONOSCOPY, chemo port Past Anesthesia/Blood Transfusion Reactions: No Reported Reaction Past Psychological History: No Psychological Hx Reported Smoking Status: Former smoker Past Alcohol Use History: Rare Additional Past Alcohol Use History / Comment(s): SMOKED FROM AGE [age], 1 PPD OR LESS. Past Drug Use History: None Reported - Past Family History Brother(s) Family Medical History: Cancer Father Family Medical History: Cancer Medications and Allergies Home Medications Medication Instructions Recorded Confirmed Type Tamsulosin [Flomax] 0.4 mg PO HS 09/30/23 11/20/24 History Carbidopa/Levodopa 2 tab PO QID 09/14/24 11/20/24 History [Carbidopa/Levodopa 25-100 Tab] Fludrocortisone [Florinef] 0.1 mg PO HS 09/14/24 11/20/24 History traMADol HCL 50 mg PO TID PRN 09/14/24 11/20/24 History Aspirin EC [Ecotrin Low Dose] 81 mg PO DAILY 11/20/24 11/20/24 History Famotidine [Pepcid] 20 mg PO BID PRN 11/20/24 11/20/24 History Melatonin 3 mg PO HS PRN 11/20/24 11/20/24 History Pravastatin Sodium [Pravachol] 20 mg PO DAILY 11/20/24 11/20/24 History amLODIPine [Norvasc] 5 mg PO DAILY 11/20/24 11/20/24 History Allergies Allergy/AdvReac Type Severity Reaction Status Date / Time No Known Allergies Allergy Verified 11/20/24 13:22 Physical Exam Vitals: Vital Signs Temp Pulse Resp BP Pulse Ox 11/22/24 08:00 48 L 16 11/22/24 07:19 98.2 F 48 L 16 170/70 96 11/22/24 01:00 97.3 F L 58 L 18 159/79 96 11/21/24 21:19 98.0 F 59 L 16 152/74 94 L 11/21/24 16:35 92 L 11/21/24 14:25 101.2 F H 60 18 116/49 92 L Intake and Output 11/21/24 11/22/24 11/22/24 22:59 06:59 14:59 Intake Total 540 Output Total 325 550 Balance -325 -10 Intake: Oral 540 Output: Urine 325 550 Other: Voiding Method Indwelling Catheter # Bowel Movements 1 1 GENERAL DESCRIPTION: Elderly male lying in bed, no distress. No tachypnea or accessory muscle of respiration use. HEENT: Shows Pallor , no scleral icterus. Oral mucous membrane is dry. NECK: Trachea central, no thyromegaly. LUNGS: Unlabored breathing. Decreased breath sound at the base HEART: S1, S2, regular rate and rhythm. No loud murmur ABDOMEN: Soft, no tenderness , guarding or rigidity, no organomegaly EXTREMITIES: No edema of feet. SKIN: No rash, no masses palpable. NEUROLOGICAL: The patient is awake, alert, oriented x3, mood and affect normal. Results CBC & Chem 7: 11/20/24 12:32 11/20/24 12:32 Labs: Microbiology - Last 24 Hours (Table) 11/20/24 15:22 Blood Culture - Preliminary Blood Assessment and Plan (1) Fever Current Visit: Yes Status: Acute Code(s): R50.9 - FEVER, UNSPECIFIED SNOMED Code(s): 025647715 (2) Influenza A Current Visit: Yes Status: Acute Code(s): J10.1 - FLU DUE TO OTH IDENT INFLUENZA VIRUS W OTH RESP MANIFEST SNOMED Code(s): 539263668 Plan: 1patient presented hospitalized weakness difficulty ambulation he did have some URI symptoms also mild cough patient did have a fever tested positive for influenza A more likely representing acute influenza infection clinic suspicious low for secondary bacterial pneumonia 2-we will check a procalcitonin level if normal we will discontinue Rocephin 3-for now continue with Tamiflu to finish a 5-day course of therapy 4-droplet isolation We will follow on clinical condition and cultures to further adjust medication if needed Thank you for this consultation we will follow the patient along with you Dictation was produced using [employer] dictation software. please excuse any grammatical, word or spelling errors. Time with Patient: Greater than 30
[2024-11-23 08:50] LABS: BUN/Creat Ratio 21.62 Ratio (12.00-20.00); Blood Urea Nitrogen 17.3 mg/dL (9.0-27.0); Chloride 104 mmol/L (96-109); Glucose 104 mg/dL (70-110); Potassium 3.3 mmol/L (3.5-5.5); Sodium 140 mmol/L (135-145)
[2024-11-23 09:05] LABS: Basophils # (A) 0.02 X 10*3/uL (0.00-0.10); Basophils % (A) 0.5 %; Eosinophils # (A) 0.06 X 10*3/uL (0.04-0.35); Eosinophils % (A) 1.4 %; HCT 32.1 % (39.6-50.0); HGB 10.5 g/dL (13.0-17.0); Lymphocytes # (A) 0.91 X 10*3/uL (0.90-5.00); Lymphocytes % (A) 20.6 %; MCH 31.6 pg (27.0-32.0); MCHC 32.7 g/dL (32.0-37.0); MCV 96.7 FL (80.0-97.0); Mean Platelet Volume 9.9 FL (9.5-12.2); Monocytes # (A) 0.39 X 10*3/uL (0.20-1.00); Monocytes % (A) 8.8 %; NRBC Per 100 WBC 0 X 10*3/uL (0.00-0.01); Neutrophils # (A) 3.01 X 10*3/uL (1.80-7.70); Neutrophils % (A) 68.2 %; Platelet Count 208 X 10*3/uL (140-440); RBC 3.32 X 10*6/uL (4.40-5.60); RDW 13.7 % (11.5-14.5); WBC 4.41 X 10*3/uL (4.50-10.00)
[2024-11-23] MEDS ORDERED: Potassium Replacement Protocol 1 EACH MISC MISCELLANE PRN (10:43)
--- NOTE | 2024-11-23 15:54 | P.PN ---
Subjective Interval History: 84-year-old male patient with past medically significant for Parkinson disease, history of mantle cell lymphoma, neuropathy, GERD who presented to ER for the evaluation of altered mental status and generalized weakness. Patient's at the bedside reported that patient was more weak than usual yesterday, was unable to get out of the toilet yesterday, this started around 5:30 PM yesterday. Patient's reported that he usually walks around with a walker, but he was more sleepy for past 1 day, was having frequent urination, also noted to have productive cough and lower extremity edema. Did not report any fever or chills, complained of shortness of breath and productive cough, denied any chest pain, palpitation, nausea vomiting diarrhea constipation abdominal pain dysuria urgency. In the ED patient was afebrile, heart rate 55, respiratory rate 18, blood pressure 146/69, saturating 99% on 2 L. WBC 6.7, hemoglobin 11.1, platelet 234. INR 1.0. BMP was unremarkable, mildly low potassium 3.4. CT head showed right middle lobe low-attenuation in the middle cranial fossa which could be artifact versus ischemia, MRI recommended. Chest x-ray showed airspace opacities near the lung base projecting over the spine correlate for pneumonia. 11/22--patient was seen and examined today. at bedside, afebrile, heart rate 59, respiratory rate 15, blood pressure 131/61, saturating 97% on room air. Repeat CT head yesterday showed similar appearance, MRI head ordered per neurology. Currently on Rocephin. PT/OT consulted. 11/23--patient was seen and examined today, patient was insisted on discharging home. at bedside, was tearful. Patient afebrile, heart rate 62, respiratory rate 15, blood pressure 130/68, saturating 90% on room air. WBCs 4.4, hemoglobin 12.5, platelet 208. BMP was unremarkable. Procalcitonin 0.09. Infectious disease following, will DC Rocephin per ID recommendation. Continue Tamiflu. PT/OT recommended subacute rehab. MRI head pending. Assessment and plan: Bacterial pneumonia: Influenza A: Generalized weakness: Brought in for generalized weakness, worsening, unable to ambulate. Chest x-ray showed airspace opacities at the lung base. Complaining of productive cough and shortness of breath. Started Tamiflu Antibiotics Rocephin Infectious disease consulted PT/OT consult Parkinson disease: Resume home meds Abnormal CT head: CT head concerning for artifact versus ischemia No focal neurological deficits Monitor with neurochecks aspirin, statin. Neurology consulted--recommended repeat CT head--similar decreased attenuation in the right middle lobe, MRI head ordered. Disposition: PT/OT consulted--recommended ECF. DVT prophylaxis Lovenox s/c Monitor vital signs and labs Labs and medication were reviewed. Continue same treatment. Further recommendations as per clinical course of the patient PHYSICAL EXAMINATION: GENERAL: The patient is A&O x3, NAD HEENT: EOMI, Sclerae anicteric, Moist Mucous membranes Neck: Supple, Non tender, No JVD PULMONARY: Equal breath souds B/L, No wheezing, No crackles. CARDIOVASCULAR: S1, S2 present. No murmurs, rubs, or gallops. ABDOMEN: Soft, nontender, nondistended, normoactive bowel sounds. No guarding or rebound tenderness. MUSCULOSKELETAL: No edema, No cyanosis. No clubbing. Normal ROM. Intact peripheral pulses. NEUROLOGICAL: CN 2-12 grossly intact. No FND Skin: No Rash REVIEW OF SYSTEMS: CONSTITUTIONAL: No fever or chills. CARDIOVASCULAR: No chest pain, palpitations or syncope. PULMONARY: No shortness of breath, no cough, sore throat. GASTROINTESTINAL: No nausea, vomiting, diarrhea, abdominal pain. : No Dysuria, urgency, frequency. Extremities: No edema. NEUROLOGICAL: No headaches, no weakness, or numbness Dictation was produced using [employer] dictation software. please excuse any gr ammatical, word or spelling errors. Objective - Vital Signs Vital signs: Vital Signs Temp 98.6 F 11/23/24 13:55 Pulse 62 11/23/24 13:55 Resp 15 11/23/24 13:55 BP 130/68 11/23/24 13:55 Pulse Ox 90 L 11/23/24 13:55 FiO2 Intake & Output 11/22/24 11/23/24 11/23/24 18:59 06:59 18:59 Output Total 1100 1000 Balance -1100 -1000 Output: Urine 1100 1000 Uretheral (Imchel) 1000 Other: Voiding Method Indwelling Catheter Indwelling Catheter Indwelling Catheter # Bowel Movements 1 - Labs CBC & Chem 7: 11/23/24 03:08 11/23/24 03:08 Labs: Abnormal Lab Results - Last 24 Hours (Table) 11/23/24 11/23/24 Range/Units 03:08 03:08 WBC 4.41 L (4.50-10.00) X 10*3/uL RBC 3.32 L (4.40-5.60) X 10*6/uL Hgb 10.5 L (13.0-17.0) g/dL Hct 32.1 L (39.6-50.0) % Potassium 3.3 L (3.5-5.5) mmol/L BUN/Creatinine Ratio 21.62 H (12.00-20.00) Ratio Calcium 8.0 L (8.7-10.3) mg/dL Microbiology - Last 24 Hours (Table) 11/20/24 15:22 Blood Culture - Preliminary Blood
--- NOTE | 2024-11-23 16:27 | P.PN ---
Subjective Progress Note Date: 11/23/24 Principal diagnosis: Reason for follow-up is acute influenza A Patient is a 84-year-old male with a past medical history significant for reflux mantle cell lymphoma prostate disorder and chronic back pain presenting to the hospital for evaluation of mental status changes patient was noticed to be weaker than usual and did have difficulty ambulation, did tested positive for acute influenza A. On today's evaluation that is 11/23/2024, Patient is afebrile this morning patient denies having any chest pain shortness of breath or any worsening cough, the patient is currently on room air, patient denies any abdominal pain no diarrhea no nausea no vomiting, mention feeling slightly better. Patient white count is 4.41, creatinine 0.8 Pro-Smith 0.09 Objective - Vital Signs Vital signs: Vital Signs Temp 98.8 F 11/23/24 06:58 Pulse 61 11/23/24 06:58 Resp 15 11/23/24 06:58 BP 184/84 11/23/24 06:58 Pulse Ox 95 11/23/24 06:58 FiO2 Intake & Output 11/22/24 11/23/24 11/23/24 18:59 06:59 18:59 Output Total 1100 1000 Balance -1100 -1000 Output: Urine 1100 1000 Uretheral (Michel) 1000 Other: Voiding Method Indwelling Catheter Indwelling Catheter Indwelling Catheter # Bowel Movements 1 - Exam GENERAL DESCRIPTION: An elderly male lying in bed in no distress RESPIRATORY SYSTEM: Unlabored breathing , decreased breath sounds at bases HEART: S1 S2 regular rate and rhythm , ABDOMEN: Soft , no tenderness EXTREMITIES: No edema feet - Labs CBC & Chem 7: 11/23/24 03:08 11/23/24 03:08 Labs: Abnormal Lab Results - Last 24 Hours (Table) 11/23/24 11/23/24 Range/Units 03:08 03:08 WBC 4.41 L (4.50-10.00) X 10*3/uL RBC 3.32 L (4.40-5.60) X 10*6/uL Hgb 10.5 L (13.0-17.0) g/dL Hct 32.1 L (39.6-50.0) % Potassium 3.3 L (3.5-5.5) mmol/L BUN/Creatinine Ratio 21.62 H (12.00-20.00) Ratio Calcium 8.0 L (8.7-10.3) mg/dL Microbiology - Last 24 Hours (Table) 11/20/24 15:22 Blood Culture - Preliminary Blood Assessment and Plan (1) Fever Current Visit: Yes Status: Acute Code(s): R50.9 - FEVER, UNSPECIFIED SNOMED Code(s): 053384228 (2) Influenza A Current Visit: Yes Status: Acute Code(s): J10.1 - FLU DUE TO OTH IDENT INFLUENZA VIRUS W OTH RESP MANIFEST SNOMED Code(s): 908982391 Plan: 1patient presented hospitalized weakness difficulty ambulation he did have some URI symptoms also mild cough patient did have a fever tested positive for influenza A more likely representing acute influenza infection clinic suspicious low for secondary bacterial pneumonia 2-patient did have a normal procalcitonin Rocephin has been discontinued 3-patient will be with Tamiflu to finish a 5-day course of therapy and monitor clinical course closely Dictation was produced using [employer] dictation software. please excuse any grammatical, word or spelling errors. Time with Patient: Less than 30
--- NOTE | 2024-11-24 15:45 | P.PN ---
Subjective Interval History: 84-year-old male patient with past medically significant for Parkinson disease, history of mantle cell lymphoma, neuropathy, GERD who presented to ER for the evaluation of altered mental status and generalized weakness. Patient's at the bedside reported that patient was more weak than usual yesterday, was unable to get out of the toilet yesterday, this started around 5:30 PM yesterday. Patient's reported that he usually walks around with a walker, but he was more sleepy for past 1 day, was having frequent urination, also noted to have productive cough and lower extremity edema. Did not report any fever or chills, complained of shortness of breath and productive cough, denied any chest pain, palpitation, nausea vomiting diarrhea constipation abdominal pain dysuria urgency. In the ED patient was afebrile, heart rate 55, respiratory rate 18, blood pressure 146/69, saturating 99% on 2 L. WBC 6.7, hemoglobin 11.1, platelet 234. INR 1.0. BMP was unremarkable, mildly low potassium 3.4. CT head showed right middle lobe low-attenuation in the middle cranial fossa which could be artifact versus ischemia, MRI recommended. Chest x-ray showed airspace opacities near the lung base projecting over the spine correlate for pneumonia. 11/22--patient was seen and examined today. at bedside, afebrile, heart rate 59, respiratory rate 15, blood pressure 131/61, saturating 97% on room air. Repeat CT head yesterday showed similar appearance, MRI head ordered per neurology. Currently on Rocephin. PT/OT consulted. 11/23--patient was seen and examined today, patient was insisted on discharging home. at bedside, was tearful. Patient afebrile, heart rate 62, respiratory rate 15, blood pressure 130/68, saturating 90% on room air. WBCs 4.4, hemoglobin 12.5, platelet 208. BMP was unremarkable. Procalcitonin 0.09. Infectious disease following, will DC Rocephin per ID recommendation. Continue Tamiflu. PT/OT recommended subacute rehab. MRI head pending. 11/24/24--patient was seen and examined today. at bedside. Vital stable. MRI head pending. Assessment and plan: Bacterial pneumonia: Influenza A: Generalized weakness: Brought in for generalized weakness, worsening, unable to ambulate. Chest x-ray showed airspace opacities at the lung base. Complaining of productive cough and shortness of breath. Started Tamiflu Was initially on Rocephin, now discontinued. Infectious disease consulted PT/OT consult Parkinson disease: Resume home meds Abnormal CT head: CT head concerning for artifact versus ischemia No focal neurological deficits Monitor with neurochecks aspirin, statin. Neurology consulted--recommended repeat CT head--similar decreased attenuation in the right middle lobe, MRI head ordered. Disposition: PT/OT consulted--recommended ECF. DVT prophylaxis Lovenox s/c Monitor vital signs and labs Labs and medication were reviewed. Continue same treatment. Further recommendations as per clinical course of the patient PHYSICAL EXAMINATION: GENERAL: The patient is A&O x3, NAD HEENT: EOMI, Sclerae anicteric, Moist Mucous membranes Neck: Supple, Non tender, No JVD PULMONARY: Equal breath souds B/L, No wheezing, No crackles. CARDIOVASCULAR: S1, S2 present. No murmurs, rubs, or gallops. ABDOMEN: Soft, nontender, nondistended, normoactive bowel sounds. No guarding or rebound tenderness. MUSCULOSKELETAL: No edema, No cyanosis. No clubbing. Normal ROM. Intact peripheral pulses. NEUROLOGICAL: CN 2-12 grossly intact. No FND Skin: No Rash REVIEW OF SYSTEMS: CONSTITUTIONAL: No fever or chills. CARDIOVASCULAR: No chest pain, palpitations or syncope. PULMONARY: No shortness of breath, no cough, sore throat. GASTROINTESTINAL: No nausea, vomiting, diarrhea, abdominal pain. : No Dysuria, urgency, frequency. Extremities: No edema. NEUROLOGICAL: No headaches, no weakness, or numbness Dictation was produced using [employer] dictation software. please excuse any grammatical, word or spelling errors. Objective - Vital Signs Vital signs: Vital Signs Temp 98.7 F 11/24/24 14:25 Pulse 57 L 11/24/24 14:25 Resp 16 11/24/24 14:25 BP 114/52 11/24/24 14:25 Pulse Ox 95 11/24/24 14:25 FiO2 Intake & Output 11/23/24 11/24/24 11/24/24 18:59 06:59 18:59 Output Total 1325 700 800 Balance -1325 -700 -800 Output: Urine 1325 700 800 Uretheral (Michel) 700 Other: Voiding Method Indwelling Catheter Indwelling Catheter Indwelling Catheter # Bowel Movements 1 - Labs CBC & Chem 7: 11/23/24 03:08 11/23/24 03:08 Labs: Microbiology - Last 24 Hours (Table) 11/20/24 15:22 Blood Culture - Preliminary Blood
--- NOTE | 2024-11-24 21:39 | P.PN ---
Subjective Progress Note Date: 11/24/24 Principal diagnosis: Reason for follow-up is acute influenza A Patient is a 84-year-old male with a past medical history significant for reflux mantle cell lymphoma prostate disorder and chronic back pain presenting to the hospital for evaluation of mental status changes patient was noticed to be weaker than usual and did have difficulty ambulation, did tested positive for acute influenza A. On today's evaluation that is 11/24/2024,the patient denies any fever or any chills, patient is breathing comfortably on room air, the patient denies chest pain and cough is decreased intensity mostly dry in nature patient denies abdominal pain, no nausea vomiting or diarrhea. Patient did not have lab draw today blood culture negative Objective - Vital Signs Vital signs: Vital Signs Temp 98.7 F 11/24/24 14:25 Pulse 57 L 11/24/24 14:25 Resp 16 11/24/24 14:25 BP 114/52 11/24/24 14:25 Pulse Ox 95 11/24/24 14:25 FiO2 Intake & Output 11/23/24 11/24/24 11/24/24 18:59 06:59 18:59 Output Total 1325 700 800 Balance -1325 -700 -800 Output: Urine 1325 700 800 Uretheral (Michel) 700 Other: Voiding Method Indwelling Catheter Indwelling Catheter Indwelling Catheter # Bowel Movements 1 - Exam GENERAL DESCRIPTION: An elderly male lying in bed in no distress RESPIRATORY SYSTEM: Unlabored breathing , decreased breath sounds at bases HEART: S1 S2 regular rate and rhythm , ABDOMEN: Soft , no tenderness EXTREMITIES: No edema feet - Labs CBC & Chem 7: 11/23/24 03:08 11/23/24 03:08 Labs: Microbiology - Last 24 Hours (Table) 11/20/24 15:22 Blood Culture - Preliminary Blood Assessment and Plan (1) Fever Current Visit: Yes Status: Acute Code(s): R50.9 - FEVER, UNSPECIFIED SNOMED Code(s): 044426323 (2) Influenza A Current Visit: Yes Status: Acute Code(s): J10.1 - FLU DUE TO OTH IDENT INF LUENZA VIRUS W OTH RESP MANIFEST SNOMED Code(s): 530523097 Plan: 1patient presented hospitalized weakness difficulty ambulation he did have some URI symptoms also mild cough patient did have a fever tested positive for influenza A more likely representing acute influenza infection clinic suspicious low for secondary bacterial pneumonia 2-patient did have a normal procalcitonin Rocephin has been discontinued as of 11/23/2024 3-patient and show some clinical improvement will be with Tamiflu to finish a 5-day course of therapy and continue supportive care Dictation was produced using [employer] dictation software. please excuse any grammatical, word or spelling errors. Time with Patient: Less than 30
[2024-11-25] MEDS: POTASSIUM CHLORIDE ER 10 MEQ TAB.ER.PRT PO SCH (13:01)
--- NOTE | 2024-11-25 13:34 | CDI ---
Documentation Clarification Form Date: 11/25/2024 01:18:35 PM From: Leslie Blue RN CCDS Phone: [phone] Admit Date: 11/20/2024 04:05:00 PM Patient Name: Emerson Mena Visit Number: [id number] Discharge Date: ATTENTION: The Clinical Documentation Specialists (CDI) and [facility] Coding Staff appreciate your assistance in clarifying documentation. Please respond to the clarification below the line at the bottom and electronically sign. The CDI & [facility] Coding staff will review the response and follow-up if needed. Please note: Queries are made part of the Legal Health Record. If you have any questions, please contact the author of this message via ITS. Doctor: Diego Sparks Your patient has the documented symptom of Altered Mental Status [insert date, location]. Additional clarification regarding the etiology/cause of this symptom is requested. History/Risk Factors: 84 year old male presents to the ED for altered mental status, generalized weakness, productive cough and lower extremity edema. Medical History: Parkinsons. GERD and prostate disorder. 11/21, HP Clinical Indicators: Labs, 11/20: Wbc 6.7, Lymphocytes 0.7, NA 135 K 3.4, BUN 21, Total protein 5.3, Albumin 3.3 Serology, 11/20: Influenza Type A (PCR) Detected A CXR, 11/20: Airspace opacities near the lung base projecting over the spine correlate for pneumonia CT Brain w/o contras, 11/20: Right middle lobe low attenuation in the middle cranial fossa which is in behind some beam hardening from the skull base findings concerning for ischemia MRI recommended. For clarity. Nonspecific white matter changes, likely secondary to chronic small vessel ischemic disease. CT Brain w/o contrast, 11/21: Similar decreased attenuation of the right middle lobe compared to the left in the right middle cranial fossa.This is possibly relating to artifact versus encephalomalacia versus less likely ischemia given absence of swelling of the right temporal lobe. Nonspecific white matter changes Treatment: 11/20 Tylenol po 1,000mg x 1; 11/20 Azithromycin 500mg IVPB X 1; 11/20 Ceftriaxone 2gm IVPB x 1; 11/20 Tamiflu 75mg po x 1; 11/21 11/22 Zithromax 500mg po x daily; 11/12 11/23 Ceftriaxone 2gm IVPB Q24H; 11/21 Tamiflu 75mg po Q12H Please clarify the etiology of the symptom of Altered Mental Status: [ ] Metabolic Encephalopathy due to Influenza A and Bacterial pneumonia [ x ] Metabolic Encephalopathy due to (specify cause): Influenza A [ ] Dementia (if know, specify Type and if with/without Behavioral Disturbance) [ ] Other condition (please specify) [ ] Unable to determine (Template Last Revised: December 2020) MTDD
--- NOTE | 2024-11-25 15:07 | P.PN ---
Subjective Interval History: 84-year-old male patient with past medically significant for Parkinson disease, history of mantle cell lymphoma, neuropathy, GERD who presented to ER for the evaluation of altered mental status and generalized weakness. Patient's at the bedside reported that patient was more weak than usual yesterday, was unable to get out of the toilet yesterday, this started around 5:30 PM yesterday. Patient's reported that he usually walks around with a walker, but he was more sleepy for past 1 day, was having frequent urination, also noted to have productive cough and lower extremity edema. Did not report any fever or chills, complained of shortness of breath and productive cough, denied any chest pain, palpitation, nausea vomiting diarrhea constipation abdominal pain dysuria urgency. In the ED patient was afebrile, heart rate 55, respiratory rate 18, blood pressure 146/69, saturating 99% on 2 L. WBC 6.7, hemoglobin 11.1, platelet 234. INR 1.0. BMP was unremarkable, mildly low potassium 3.4. CT head showed right middle lobe low-attenuation in the middle cranial fossa which could be artifact versus ischemia, MRI recommended. Chest x-ray showed airspace opacities near the lung base projecting over the spine correlate for pneumonia. 11/22--patient was seen and examined today. at bedside, afebrile, heart rate 59, respiratory rate 15, blood pressure 131/61, saturating 97% on room air. Repeat CT head yesterday showed similar appearance, MRI head ordered per neurology. Currently on Rocephin. PT/OT consulted. 11/23--patient was seen and examined today, patient was insisted on discharging home. at bedside, was tearful. Patient afebrile, heart rate 62, respiratory rate 15, blood pressure 130/68, saturating 90% on room air. WBCs 4.4, hemoglobin 12.5, platelet 208. BMP was unremarkable. Procalcitonin 0.09. Infectious disease following, will DC Rocephin per ID recommendation. Continue Tamiflu. PT/OT recommended subacute rehab. MRI head pending. 11/24/24--patient was seen and examined today. at bedside. Vital stable. MRI head pending. 11/25/24--patient was seen and examined today. Family at bedside. Patient is afebrile, heart rate 55, respiratory rate 17, blood pressure 163/67, saturating 94% on room air. WBCs 4.4, hemoglobin 10.5, platelets 208. BMP unremarkable. Potassium 3.3, replaced. Patient declined MRI, unable to lay flat. No focal neurological deficits. PMNR consult pending. Assessment and plan: Bacterial pneumonia: Influenza A: Acute metabolic encephalopathy: Secondary to above Generalized weakness: Brought in for generalized weakness, worsening, unable to ambulate. Chest x-ray showed airspace opacities at the lung base. Complaining of productive cough and shortness of breath. Started Tamiflu Was initially on Rocephin, now discontinued. Infectious disease consulted PT/OT consult Parkinson disease: Resume home meds Abnormal CT head: CT head concerning for artifact versus ischemia No focal neurological deficits Monitor with neurochecks aspirin, statin. Neurology consulted--recommended repeat CT head--similar decreased attenuation in the right middle lobe, MRI head ordered--patient declined. Disposition: PT/OT consulted--recommended ECF. DVT prophylaxis Lovenox s/c Monitor vital signs and labs Labs and medication were reviewed. Continue same treatment. Further recommendations as per clinical course of the patient PHYSICAL EXAMINATION: GENERAL: The patient is A&O x3, NAD HEENT: EOMI, Sclerae anicteric, Moist Mucous membranes Neck: Supple, Non tender, No JVD PULMONARY: Equal breath souds B/L, No wheezing, No crackles. CARDIOVASCULAR: S1, S2 present. No murmurs, rubs, or gallops. ABDOMEN: Soft, nontender, nondistended, normoactive bowel sounds. No guarding or rebound tenderness. MUSCULOSKELETAL: No edema, No cyanosis. No clubbing. Normal ROM. Intact peripheral pulses. NEUROLOGICAL: CN 2-12 grossly intact. No FND Skin: No Rash REVIEW OF SYSTEMS: CONSTITUTIONAL: No fever or chills. CARDIOVASCULAR: No chest pain, palpitations or syncope. PULMONARY: No shortness of breath, no cough, sore throat. GASTROINTESTINAL: No nausea, vomiting, diarrhea, abdominal pain. : No Dysuria, urgency, frequency. Extremities: No edema. NEUROLOGICAL: No headaches, no weakness, or numbness Dictation was produced using [employer] dictation software. please excuse any grammatical, word or spelling errors. Objective - Vital Signs Vital signs: Vital Signs Temp 98.5 F 11/25/24 07:23 Pulse 55 L 11/25/24 07:23 Resp 17 11/25/24 07:23 BP 163/67 11/25/24 07:23 Pulse Ox 94 L 11/25/24 07:23 FiO2 Intake & Output 11/24/24 11/25/24 11/25/24 18:59 06:59 18:59 Output Total 1400 850 Balance -1400 -850 Output: Urine 1400 850 Other: Voiding Method Indwelling Catheter Indwelling Catheter Indwelling Catheter - Labs CBC & Chem 7: 11/23/24 03:08 11/23/24 03:08
--- NOTE | 2024-11-25 15:37 | P.PN ---
Subjective Progress Note Date: 11/25/24 Principal diagnosis: Reason for follow-up is acute influenza A Patient is a 84-year-old male with a past medical history significant for reflux mantle cell lymphoma prostate disorder and chronic back pain presenting to the hospital for evaluation of mental status changes patient was noticed to be weaker than usual and did have difficulty ambulation, did tested positive for acute influenza A. On today's evaluation that is 11/25/2024,the patient remains to be afebrile, patient is on room air not requiring supplemental oxygen and denies any shortness of breath no chest pain did have mild dry cough.Patient denies having any nausea or vomiting, no abdominal pain and no diarrhea has been reported. Patient did not have any lab draw today blood culture has been negative Objective - Vital Signs Vital signs: Vital Signs Temp 98.5 F 11/25/24 07:23 Pulse 55 L 11/25/24 07:23 Resp 17 11/25/24 07:23 BP 163/67 11/25/24 07:23 Pulse Ox 94 L 11/25/24 07:23 FiO2 Intake & Output 11/24/24 11/25/24 11/25/24 18:59 06:59 18:59 Output Total 1400 850 Balance -1400 -850 Output: Urine 1400 850 Other: Voiding Method Indwelling Catheter Indwelling Catheter Indwelling Catheter - Exam GENERAL DESCRIPTION: An elderly male lying in bed in no distress RESPIRATORY SYSTEM: Unlabored breathing , decreased breath sounds at bases HEART: S1 S2 regular rate and rhythm , ABDOMEN: Soft , no tenderness EXTREMITIES: No edema feet - Labs CBC & Chem 7: 11/23/24 03:08 11/23/24 03:08 Assessment and Plan (1) Fever Current Visit: Yes Status: Acute Code(s): R50.9 - FEVER, UNSPECIFIED SNOMED Code(s): 771913036 (2) Influenza A Current Visit: Yes Status: Acute Code(s): J10.1 - FLU DUE TO OTH IDENT INFLUENZA VIRUS W OTH RESP MANIFEST SNOMED Code(s): 022090850 Plan: 1patient presented hospitalized weakness difficulty ambulation he did have some URI symptoms also mild cough patient did have a fever tested positive for influenza A more likely representing acute influenza infection clinic suspicious low for secondary bacterial pneumonia 2-patient did have a normal procalcitonin Rocephin has been discontinued as of 11/23/2024 and the patient seem to be doing well off antibiotic 3-patient a is slowly clinical improving patient will be treated with Tamiflu to finish a 5-day course of therapy and continue supportive care. Family at the bedside question answered Dictation was produced using [employer] dictation software. please excuse any grammatical, word or spelling errors. Time with Patient: Less than 30
--- NOTE | 2024-11-25 15:49 | P.CONS ---
History of Present Illness - Reason for Consult Consult date: 11/25/24 rehab recommendations - Chief Complaint generalized weakness - History of Present Illness Mr Vega is an 84 y/o male who lives with his . has been assisting as needed with ADLs. He uses a walker at baseline, does not drive. Patient presented to the hospital with AMS, generalized weakness and cough. He tested positive for influenza A.Chest x-ray showed airspace opacities near the lung base projecting over the spine correlate for pneumonia. CT head concerning for artifact versus ischemia, neurology was consulted, thought to be artifact. MRI head ordered per neurology. Currently on Rocephin. PT/OT consulted. PM&R consulted for rehab recommendations. Patient seen by therapies; max- dependent with mobility and ADLs. 11/25/23: Patient resting in bed, family at bedside. Patient is pending MRI brain. He is fatigued, denies CP, SOB, and abdominal pain. No current complaints of pain. Man catheter Review of Systems as above in subjective Past Medical History Past Medical History: Cancer, GERD/Reflux, Neurologic Disorder, Prostate Disorder Additional Past Medical History / Comment(s): See Dr Lucas's H&P. 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 Hx Skin Cancer. Numbness in feet. Back problem/pain. Parkinson's. History of Any Multi-Drug Resistant Organisms: None Reported Past Surgical History: Orthopedic Surgery Additional Past Surgical History / Comment(s): Left elbow surgery, removal basal cell cancer, MULTIPLE LYMPH NODE BIOPSIES, COLONOSCOPY, chemo port Past Anesthesia/Blood Transfusion Reactions: No Reported Reaction Past Psychological History: No Psychological Hx Reported Smoking Status: Former smoker Past Alcohol Use History: Rare Past Drug Use History: None Reported - Past Family History Brother(s) Family Medical History: Cancer Father Family Medical History: Cancer Medications and Allergies Home Medications Medication Instructions Recorded Confirmed Type Tamsulosin [Flomax] 0.4 mg PO HS 09/30/23 11/20/24 History Carbidopa/Levodopa 2 tab PO QID 09/14/24 11/20/24 History [Carbidopa/Levodopa 25-100 Tab] Fludrocortisone [Florinef] 0.1 mg PO HS 09/14/24 11/20/24 History traMADol HCL 50 mg PO TID PRN 09/14/24 11/20/24 History Aspirin EC [Ecotrin Low Dose] 81 mg PO DAILY 11/20/24 11/20/24 History Famotidine [Pepcid] 20 mg PO BID PRN 11/20/24 11/20/24 History Melatonin 3 mg PO HS PRN 11/20/24 11/20/24 History Pravastatin Sodium [Pravachol] 20 mg PO DAILY 11/20/24 11/20/24 History amLODIPine [Norvasc] 5 mg PO DAILY 11/20/24 11/20/24 History Allergies Allergy/AdvReac Type Severity Reaction Status Date / Time No Known Allergies Allergy Verified 11/20/24 13:22 Physical Exam Vitals: Vital Signs Temp Pulse Resp BP Pulse Ox 11/25/24 07:23 98.5 F 55 L 17 163/67 94 L 11/25/24 01:14 98.0 F 61 18 179/73 96 11/24/24 20:06 97.8 F 60 17 170/72 96 11/24/24 14:25 98.7 F 57 L 16 114/52 95 Intake and Output 11/24/24 11/25/24 11/25/24 22:59 06:59 14:59 Output Total 600 850 Balance -600 -850 Output: Urine 600 850 Other: Voiding Method Indwelling Catheter Indwelling Catheter General: WD elderly male, laying in bed, NAD, fatigued HEENT: head normocephalic, atraumatic; moist mucous membranes, external ears intact with hearing intact to conversational speech Neck: supple CV: no acute cardiac distress Lungs: even and non labored respirations on RA Abdomen: soft, NT, ND : man catheter MSK: Generalized weakness, functional ROM of UE MMT: UE 2-3, LE0-1/5 Neuro: Semialert, minimal answers to questions. Sensation intact to light touch bilateral UE and LEs Psych: mood calm, affect flat Extremities: calves supple, non tender, + LE edema Skin: multiple LE scabbing Results CBC & Chem 7: 11/23/24 03:08 11/23/24 03:08 Assessment and Plan Assessment: #Impaired gait and ADLs secondary to generalized weakness and influenza A -therapies # Debility # Parkinson's Disease #Abnormal CT head: CT head concerning for artifact versus ischemia No focal neurological deficits Monitor with neurochecks aspirin, statin. Neurology consulted--recommended repeat CT head--similar decreased attenuation in the right middle lobe, MRI head ordered. # History of mantel cell lymphoma # DVT prophylaxis Lovenox s/c # Pain Medications -per JAN # Your medical dx and management Dispo: Patient performing below his baseline level of function, per therapy needing Max-Dep for adls and mobility, does not meet the medical necessity for IPR, recommending BERNIE Patient seen and examined in coordination with Dr Yi.
--- NOTE | 2024-11-25 16:22 | P.PN ---
Subjective Progress Note Date: 11/25/24 I am seeing the patient for the first time during this admission. Please refer to Dr. Navarrete's notes for further details. is at bedside who provides some of the history. She stated patient has underlying history of Parkinson's disease, dementia at baseline who presents to the hospital because of generalized weakness and was confused. She stated he is drastically better compared to initial presentation. He was found to have Influenza A. He continues to have weakness predominately in legs but is improving compared to initial presentation. Today he could not lay still for MRI Brain because of his chronic back pain. Objective - Vital Signs Vital signs: Vital Signs Temp 98.5 F 11/25/24 07:23 Pulse 55 L 11/25/24 07:23 Resp 17 11/25/24 07:23 BP 163/67 11/25/24 07:23 Pulse Ox 94 L 11/25/24 07:23 FiO2 Intake & Output 11/24/24 11/25/24 11/25/24 18:59 06:59 18:59 Output Total 1400 850 Balance -1400 -850 Output: Urine 1400 850 Other: Voiding Method Indwelling Catheter Indwelling Catheter Indwelling Catheter - Exam General: Lying in bed and is not in acute distress. Neuro: The patient is awake, alert, oriented to self, place and initially stated Month is October but upon correction then he stated then just became beginning of November. Talks nonsensical at times. Visual guillory are full to confrontation throughout. No facial weakness. Motor: Strength is limited. Is lifting uppers equally. Lowers is limited because of pain (mostly in lowers) but briefly raising above gravity right >left but again limited because of pain. - Labs CBC & Chem 7: 11/23/24 03:08 11/23/24 03:08 Assessment and Plan Assessment: * Generalized weakness, due to acute febrile illness. Patient has been diagnosed with influenza A pneumonia---weakness is improving according to compared to initial presentation. * Acute influenza A * Parkinson's disease * Abnormal CT head revealed low-attenuation in the middle cranial fossa which is behind some beam hardening from the skull base finding, concerning for ischemia. On my examination, appears somewhat artifactual in nature. Patient denies any focal symptoms. Examination is nonfocal. Plan: * Repeat CT head: Similar decreased attenuation of the right middle lobe compared to left in right middle cranail fossa. This possibly relating to artifact vs encephalomalacia vs less likely ischemia given absence of swelling of the right temporal lobe. * Today he could not tolerate the MRI Brain because of back pain. The patient and his want the MRI to be reattempted and recommend controlling pain. * Continue aspirin. * Patient currently on ceftriaxone and azithromycin. * DVT prophylaxis: Patient on Lovenox 40 mg subcu daily. The plan is discussed with patient, his who is at bedside and his nurse. Time with Patient: Less than 30
[2024-11-25] MEDS ORDERED: MORPHINE SULFATE 4 MG/ML SYRINGE IVP PRN (18:48)
[2024-11-26 12:29] VITALS: BMI 24.4
--- NOTE | 2024-11-26 14:54 | P.PN ---
Subjective Progress Note Date: 11/26/24 Principal diagnosis: Reason for follow-up is acute influenza A Patient is a 84-year-old male with a past medical history significant for reflux mantle cell lymphoma prostate disorder and chronic back pain presenting to the hospital for evaluation of mental status changes patient was noticed to be weaker than usual and did have difficulty ambulation, did tested positive for acute influenza A. On today's evaluation that is 11/26/2024, the patient continues to be afebrile, the patient is on room air and breathing comfortably, the Pt denies having any chest pain or cough, the patient denies having any abdominal pain no vomiting or any diarrhea, mention feeling better. No new lab has been obtained today Objective - Vital Signs Vital signs: Vital Signs Temp 98.7 F 11/26/24 13:10 Pulse 63 11/26/24 13:10 Resp 15 11/26/24 13:10 BP 110/48 11/26/24 13:10 Pulse Ox 95 11/26/24 13:10 FiO2 Intake & Output 11/25/24 11/26/24 11/26/24 18:59 06:59 18:59 Output Total 800 1100 Balance -800 -1100 Weight 81.647 kg Output: Urine 800 1100 Other: Voiding Method Indwelling Catheter Indwelling Catheter Indwelling Catheter - Exam GENERAL DESCRIPTION: An elderly male lying in bed in no distress RESPIRATORY SYSTEM: Unlabored breathing , decreased breath sounds at bases HEART: S1 S2 regular rate and rhythm , ABDOMEN: Soft , no tenderness EXTREMITIES: No edema feet - Labs CBC & Chem 7: 11/23/24 03:08 11/23/24 03:08 Labs: Microbiology - Last 24 Hours (Table) 11/20/24 15:22 Blood Culture - Final Blood Assessment and Plan (1) Fever Current Visit: Yes Status: Acute Code(s): R50.9 - FEVER, UNSPECIFIED SN OMED Code(s): 739652302 (2) Influenza A Current Visit: Yes Status: Acute Code(s): J10.1 - FLU DUE TO OTH IDENT INFLUENZA VIRUS W OTH RESP MANIFEST SNOMED Code(s): 742333909 Plan: 1patient presented hospitalized weakness difficulty ambulation he did have some URI symptoms also mild cough patient did have a fever tested positive for influenza A more likely representing acute influenza infection clinic suspicious low for secondary bacterial pneumonia 2-patient did have a normal procalcitonin Rocephin has been discontinued as of and the patient seem to be doing well off antibiotic 3-patient did have clinical improvement Tamiflu to finish a 5-day course of therapy, currently waiting for MRI of the brain ordered by neurology at the bedside question answered Dictation was produced using [email or web address] dictation software. please excuse any grammatical, word or spelling errors.
--- NOTE | 2024-11-26 16:06 | P.PN ---
Subjective Interval History: 84-year-old male patient with past medically significant for Parkinson disease, history of mantle cell lymphoma, neuropathy, GERD who presented to ER for the evaluation of altered mental status and generalized weakness. Patient's at the bedside reported that patient was more weak than usual yesterday, was unable to get out of the toilet yesterday, this started around 5:30 PM yesterday. Patient's reported that he usually walks around with a walker, but he was more sleepy for past 1 day, was having frequent urination, also noted to have productive cough and lower extremity edema. Did not report any fever or chills, complained of shortness of breath and productive cough, denied any chest pain, palpitation, nausea vomiting diarrhea constipation abdominal pain dysuria urgency. In the ED patient was afebrile, heart rate 55, respiratory rate 18, blood pressure 146/69, saturating 99% on 2 L. WBC 6.7, hemoglobin 11.1, platelet 234. INR 1.0. BMP was unremarkable, mildly low potassium 3.4. CT head showed right middle lobe low-attenuation in the middle cranial fossa which could be artifact versus ischemia, MRI recommended. Chest x-ray showed airspace opacities near the lung base projecting over the spine correlate for pneumonia. 11/22--patient was seen and examined today. at bedside, afebrile, heart rate 59, respiratory rate 15, blood pressure 131/61, saturating 97% on room air. Repeat CT head yesterday showed similar appearance, MRI head ordered per neurology. Currently on Rocephin. PT/OT consulted. 11/23--patient was seen and examined today, patient was insisted on discharging home. at bedside, was tearful. Patient afebrile, heart rate 62, respiratory rate 15, blood pressure 130/68, saturating 90% on room air. WBCs 4.4, hemoglobin 12.5, platelet 208. BMP was unremarkable. Procalcitonin 0.09. Infectious disease following, will DC Rocephin per ID recommendation. Continue Tamiflu. PT/OT recommended subacute rehab. MRI head pending. 11/24/24--patient was seen and examined today. at bedside. Vital stable. MRI head pending. 11/25/24--patient was seen and examined today. Family at bedside. Patient is afebrile, heart rate 55, respiratory rate 17, blood pressure 163/67, saturating 94% on room air. WBCs 4.4, hemoglobin 10.5, platelets 208. BMP unremarkable. Potassium 3.3, replaced. Patient patient could not complete MRI, unable to lie flat. No focal neurological deficits. PMNR consult pending. 11/26/24--patient was seen and examined today. Family at bedside. Patient feeling better. Vital stable, afebrile, heart rate 63, respiratory rate 15, b lood pressure 110/48, saturating 95% on room air. No new labs today. patient was unable to complete MRI yesterday due to pain with laying flat, repeat MRI ordered with IV morphine--pending. Neurology following. Assessment and plan: Bacterial pneumonia: Influenza A: Acute metabolic encephalopathy: Secondary to above Generalized weakness: Brought in for generalized weakness, worsening, unable to ambulate. Chest x-ray showed airspace opacities at the lung base. Complaining of productive cough and shortness of breath. Received Tamiflu Was initially on Rocephin, now discontinued. Infectious disease consulted PT/OT consult Parkinson disease: Resume home meds Abnormal CT head: CT head concerning for artifact versus ischemia No focal neurological deficits Monitor with neurochecks aspirin, statin. Neurology consulted--recommended repeat CT head--similar decreased attenuation in the right middle lobe, MRI head ordered--pending Disposition: PT/OT consulted--recommended ECF. Anticipate discharge to subacute rehab depending on MRI results. DVT prophylaxis Lovenox s/c Monitor vital signs and labs Labs and medication were reviewed. Continue same treatment. Further recommendations as per clinical course of the patient PHYSICAL EXAMINATION: GENERAL: The patient is A&O x3, NAD HEENT: EOMI, Sclerae anicteric, Moist Mucous membranes Neck: Supple, Non tender, No JVD PULMONARY: Equal breath souds B/L, No wheezing, No crackles. CARDIOVASCULAR: S1, S2 present. No murmurs, rubs, or gallops. ABDOMEN: Soft, nontender, nondistended, normoactive bowel sounds. No guarding or rebound tenderness. MUSCULOSKELETAL: No edema, No cyanosis. No clubbing. Normal ROM. Intact peripheral pulses. NEUROLOGICAL: CN 2-12 grossly intact. No FND Skin: No Rash REVIEW OF SYSTEMS: CONSTITUTIONAL: No fever or chills. CARDIOVASCULAR: No chest pain, palpitations or syncope. PULMONARY: No shortness of breath, no cough, sore throat. GASTROINTESTINAL: No nausea, vomiting, diarrhea, abdominal pain. : No Dysuria, urgency, frequency. Extremities: No edema. NEUROLOGICAL: No headaches, no weakness, or numbness Dictation was produced using [employer] dictation software. please excuse any grammatical, word or spelling errors. Objective - Vital Signs Vital signs: Vital Signs Temp 98.7 F 11/26/24 13:10 Pulse 63 11/26/24 13:10 Resp 15 11/26/24 13:10 BP 110/48 11/26/24 13:10 Pulse Ox 95 11/26/24 13:10 FiO2 Intake & Output 11/25/24 11/26/24 11/26/24 18:59 06:59 18:59 Output Total 800 1100 Balance -800 -1100 Weight 81.647 kg Output: Urine 800 1100 Other: Voiding Method Indwelling Catheter Indwelling Catheter Indwelling Catheter - Labs CBC & Chem 7: 11/23/24 03:08 11/23/24 03:08 Labs: Microbiology - Last 24 Hours (Table) 11/20/24 15:22 Blood Culture - Final Blood
[2024-11-27 08:30] VITALS: RESP 17
[2024-11-27 12:08] LABS: Basophils % (A) 0 %; Eosinophils # (A) 0.1 k/uL (0-0.7); Eosinophils % (A) 1 %; HCT 32.7 % (39.0-53.0); HGB 10.9 gm/dL (13.0-17.5); Lymphocytes # (A) 0.9 k/uL (1.0-4.8); Lymphocytes % (A) 15 %; MCH 31.9 pg (25.0-35.0); MCHC 33.2 g/dL (31.0-37.0); MCV 96.1 fL (80.0-100.0); Mean Platelet Volume 8.3; Monocytes # (A) 0.3 k/uL (0-1.0); Monocytes % (A) 5 %; Neutrophils # (A) 4.7 k/uL (1.3-7.7); Neutrophils % (A) 77 %; Platelet Count 239 k/uL (150-450); WBC 6.1 k/uL (3.8-10.6)
[2024-11-27 12:38] LABS: African American GFR (CKD) >90 (>60 ml/min/1.73 sqM); Anion Gap 5 mmol/L; Blood Urea Nitrogen 20 mg/dL (9-20); Calcium 8.3 mg/dL (8.4-10.2); Carbon Dioxide 31 mmol/L (22-30); Chloride 100 mmol/L (98-107); Glucose 102 mg/dL (74-99); Non-African American GFR(CKD) 87 (>60 ml/min/1.73 sqM); Potassium 3.8 mmol/L (3.5-5.1); Sodium 136 mmol/L (137-145)
--- NOTE | 2024-11-27 14:02 | MR ---
EXAMINATION TYPE: MR brain wo con DATE OF EXAM: 11/27/2024 COMPARISON: MRI brain 2018. CT brain November 21, 2024 HISTORY: Abnormal CT, evaluate for CVA. TECHNIQUE: Multiplanar, multisequence imaging of the brain and brainstem is performed without IV cont rast. FINDINGS: Diffusion weighted images demonstrate no evidence of a recent infarct or other diffusion abnormality. There is mild to moderate ventricular and sulcal prominence redemonstrated. There are bilateral multi focal and confluent hyperintense T2 lesions throughout the deep and periventricular white matter with interval progression from 2018 MRI noted. Midline structures demonstrate normal morphology. The craniocervical junction appears within normal limits. Normal vascular flow voids are present. Bilateral aphakia redemonstrated. The paranasal sinus es show small cyst or polyp in the right ethmoid sinuses otherwise are clear. IMPRESSION: 1. No MRI evidence for recent infarct. 2. [id number] diffuse cerebral atrophy and moderate to advanced chronic small vessel ischemic c hange is noted. [facility], , 11/27/2024 2:00 PM
[2024-11-27] MEDS: POTASSIUM CHLORIDE ER 20 MEQ TAB.ER PO STA (14:25)
--- NOTE | 2024-11-27 14:58 | P.DS ---
Providers Date of admission: 11/20/24 16:05 Attending physician: Jonnie Tyler MD Consults: 11/20/24 16:04 Consult Physician Routine Consulting Provider: Kali Navarrete Consult Reason/Comments: abn ct brain Do you want consulting provider notified?: Already Contacted 11/21/24 16:39 Consult Physician Routine Consulting Provider: Johnson Au Consult Reason/Comments: Flu, fever Do you want consulting provider notified?: Yes 11/23/24 15:00 Consult Physician Routine Consulting Provider: Nithin Ordoñez Consult Reason/Comments: evaluate for inpatient rehab Do you want consulting provider notified?: Yes Primary care physician: Mc Stewart [facility] Course: Final Diagnosis Bacterial pneumonia: Influenza A: Acute metabolic encephalopathy: Secondary to above Generalized weakness Parkinson disease History of mantle cell lymphoma in 2013 received 2 years of chemotherapy and now with chemo induced peripheral neuropathy Former smoker Gastroesophageal reflux disease Discharge Disposition Patient stable for discharge to subacute rehab at [facility] on the week. Patient will continue his same Parkinson's medications. Has completed a course of Tamiflu for acute influenza A infection. No need for antibiotics at this time. Patient to follow-up closely with PCP Dr. Stewart in 1 to 2 days. Recommend to repeat blood work in 2 to 3 days. Hospital Course 84-year-old male patient with past medically significant for Parkinson disease, history of mantle cell lymphoma, neuropathy, GERD who presented to ER for the evaluation of altered mental status and generalized weakness. Patient's at the bedside reported that patient was more weak than usual yesterday, was unable to get out of the toilet yesterday, this started around 5:30 PM yesterday. Patient's reported that he usually walks around with a walker, but he was more sleepy for past 1 day, was having frequent urination, also noted to have productive cough and lower extremity edema. Did not report any fever or chills, complained of shortness of breath and productive cough, denied any chest pain, palpitation, nausea vomiting diarrhea constipation abdominal pain dysuria urgency. In the ED patient was afebrile, heart rate 55, respiratory rate 18, blood pressure 146/69, saturating 99% on 2 L. WBC 6.7, hemoglobin 11.1, platelet 234. INR 1.0. BMP was unremarkable, mildly low potassium 3.4. CT head showed right middle lobe low-attenuation in the middle cranial fossa which could be artifact versus ischemia, MRI recommended. Chest x-ray showed airspace opacities near the lung base projecting over the spine correlate for pneumonia. Patient was found to have acute influenza A infection. Admitted to the hospital to consult placed to neurology and infectious disease. Completed a 5-day course of Tamiflu was also started on IV Rocephin however had a normal procalcitonin level at 0.09 and no need for further antibiotic therapy. His electrolytes and CBC have remained essentially unremarkable hemoglobin slightly low at 10.5 and 10.9. White blood cell count is normal at 6.1. Renal function stable. Patient is maintained on tramadol for chronic back pain was having issues with pain management and MRI was postponed for a few days. Patient did go down for a follow-up brain MRI today to rule out acute ischemia or stroke. Brain MRI reveals no MRI evidence for recent infarct there is mild to moderate diffuse cerebral atrophy and moderate to advanced chronic small vessel ischemic change noted. Complaining of any shortness of breath or chest discomfort this time. He is maintained on room air. He is cleared medically for discharge. Physical therapy has evaluated this patient and recommending subacute rehab. Please see medication reconciliation for a list of current medications. Thank you for allowing us to participate in the care of this patient. The impression and plan of care has been dictated by Genny Aviles, Nurse Practitioner as directed. Dr. Mauri MD I have performed a history and physical examination and medical decision making of this patient, discussed the same with the dictator, and agree with the dictators assessment and plan as written, documented as a scribe. Based on total visit time, I have performed more than 50% of this visit. Patient Condition at Discharge: Stable Plan - Discharge Summary Discharge Rx Participant: No New Discharge Prescriptions: New RX: Enoxaparin [Lovenox] 40 mg SQ DAILY each RX: Acetaminophen Tab [Tylenol] 650 mg PO Q6HR PRN tab PRN Reason: Mild Pain Or Fever > 100.5 Continue RX: Tamsulosin [Flomax] 0.4 mg PO HS RX: Carbidopa/Levodopa [Carbidopa/Levodopa 25-100 Tab] 2 tab PO QID RX: Aspirin EC [Ecotrin Low Dose] 81 mg PO DAILY RX: Pravastatin Sodium [Pravachol] 20 mg PO DAILY RX: Melatonin 3 mg PO HS PRN PRN Reason: Insomnia RX: traMADol HCL 50 mg PO TID PRN #6 tab PRN Reason: Pain RX: Fludrocortisone [Florinef] 0.1 mg PO HS RX: Famotidine [Pepcid] 20 mg PO BID PRN PRN Reason: Gi Upset RX: amLODIPine [Norvasc] 5 mg PO DAILY Discharge Medication List RX: Tamsulosin [Flomax] 0.4 mg PO HS 09/30/23 [History] RX: Carbidopa/Levodopa [Carbidopa/Levodopa 25-100 Tab] 2 tab PO QID 09/14/24 [History] RX: Fludrocortisone [Florinef] 0.1 mg PO HS 09/14/24 [History] RX: Aspirin EC [Ecotrin Low Dose] 81 mg PO DAILY 11/20/24 [History] RX: Famotidine [Pepcid] 20 mg PO BID PRN 11/20/24 [History] RX: Melatonin 3 mg PO HS PRN 11/20/24 [History] RX: Pravastatin Sodium [Pravachol] 20 mg PO DAILY 11/20/24 [History] RX: amLODIPine [Norvasc] 5 mg PO DAILY 11/20/24 [History] RX: Acetaminophen Tab [Tylenol] 650 mg PO Q6HR PRN tab 11/27/24 [Rx] RX: Enoxaparin [Lovenox] 40 mg SQ DAILY each 11/27/24 [Rx] RX: traMADol HCL 50 mg PO TID PRN #6 tab 11/27/24 [Rx] Follow up Appointment(s)/Referral(s): [facility], [NON-STAFF] - 1-2 Days ([facility] will call you to schedule you in home nursing, physical therapy, and occupational therapy visits. ) Mc Stewart DO [Primary Care Provider] - 1-2 days Ambulatory/Diagnostic Orders: Basic Metabolic Panel [LAB.AMB] Time Frame: 3 Days, Location: None Selected Complete Blood Count w/diff [LAB.AMB] Location: None Selected Discharge Disposition: TRANSFER TO SNF/ECF
[2024-11-27 15:12] VITALS: BP 129/55; PULSE 64; TEMP 98.7
--- NOTE | 2024-11-27 21:45 | P.PN ---
Subjective Progress Note Date: 11/27/24 Principal diagnosis: Reason for follow-up is acute influenza A Patient is a 84-year-old male with a past medical history significant for reflux mantle cell lymphoma prostate disorder and chronic back pain presenting to the hospital for evaluation of mental status changes patient was noticed to be weaker than usual and did have difficulty ambulation, did tested positive for acute influenza A. On today's evaluation that is 11/27/2024, patient did not have any fever and denies any chills, patient is breathing comfortably on room air, patient with no chest pain, occasional cough patient did not have any abdominal pain nausea vomiting or any loose stools, feeling better. Patient white count 6.1 creatinine 0.71 Objective - Vital Signs Vital signs: Vital Signs Temp 98.7 F 11/27/24 14:10 Pulse 64 11/27/24 14:10 Resp 17 11/27/24 14:10 BP 129/55 11/27/24 14:10 Pulse Ox 95 11/27/24 14:10 FiO2 Intake & Output 11/26/24 11/27/24 11/27/24 18:59 06:59 18:59 Output Total 900 750 Balance -900 -750 Weight 81.647 kg Output: Urine 900 750 Other: Voiding Method Indwelling Catheter Indwelling Catheter Indwelling Catheter # Bowel Movements 2 - Exam GENERAL DESCRIPTION: An elderly male lying in bed in no distress RESPIRATORY SYSTEM: Unlabored breathing , decreased breath sounds at bases HEART: S1 S2 regular rate and rhythm , ABDOMEN: Soft , no tenderness EXTREMITIES: No edema feet - Labs CBC & Chem 7: 11/27/24 11:31 11/27/24 11:31 Labs: Abnormal Lab Results - Last 24 Hours (Table) 11/27/24 11/27/24 Range/Units 11:31 11:31 RBC 3.40 L (4.30-5.90) m/uL Hgb 10.9 L (13.0-17.5) gm/dL Hct 32.7 L (39.0-53.0) % Lymphocytes # 0.9 L (1.0-4.8) k/uL Sodium 136 L (137-145) mmol/L Carbon Dioxide 31 H (22-30) mmol/L Glucose 102 H (74-99) mg/dL Calcium 8.3 L (8.4-10.2) mg/dL Assessment and Plan (1) Fever Status: Acute Code(s): R50.9 - FEVER, UNSPECIFIED SNOMED Code(s): 581898280 (2) Influenza A Status: Acute Code(s): J10.1 - FLU DUE TO OTH IDENT INFLUENZA VIRUS W OTH RESP MANIFEST SNOMED Code(s): 718657927 Plan: 1patient presented hospitalized weakness difficulty ambulation he did have some URI symptoms also mild cough patient did have a fever tested positive for influenza A more likely representing acute influenza infection clinic suspicious low for secondary bacterial pneumonia 2-patient did have a normal procalcitonin Rocephin has been discontinued as of 11/23/2024 and the patient seem to be doing well off antibiotic 3-patient did have clinical improvement has completed 5-day course of Tamiflu no need for any antiviral or antibiotic on discharge Family at bedside question answered Dictation was produced using [employer] dictation software. please excuse any grammatical, word or spelling errors. Time with Patient: Less than 30
== END 2024-11-27 17:11 | DRG 193 ==
LOC: EC 10:40 → 4SSUR 16:05
PROVIDERS: ADMIT Internal Medicine; ATTEND Internal Medicine
DX: J10.08 Influenza due to other identified influenza virus with other specified pneumonia (principal); G93.41 Metabolic encephalopathy; J15.9 Unspecified bacterial pneumonia; G20.A1 Parkinson's disease without dyskinesia, without mention of fluctuations; F02.80 Dementia in other diseases classified elsewhere, unspecified severity, without behavioral disturbance, psychotic disturbance, mood disturbance, and anxiety; J44.0 Chronic obstructive pulmonary disease with (acute) lower respiratory infection; K21.9 Gastro-esophageal reflux disease without esophagitis; G62.0 Drug-induced polyneuropathy; G89.29 Other chronic pain; T45.1X5A Adverse effect of antineoplastic and immunosuppressive drugs, initial encounter; Z85.72 Personal history of non-Hodgkin lymphomas; Z87.891 Personal history of nicotine dependence; Z79.82 Long term (current) use of aspirin; Z79.899 Other long term (current) drug therapy; Z85.828 Personal history of other malignant neoplasm of skin
CPT/HCPCS: 36415; 51702; 51798; 70450; 70551; 71045; 71046; 80048; 80053; 81003; 83605; 84145; 84484; 85025; 85610; 85730; 87040; 87449; 87636; 93005; 96365; 96366; 96367; 96368; 99285